=== PATIENT | female | born 1990 | race Caucasian/White ===

== ENCOUNTER 2019-08-08 09:56 | Inpatient (IN) ==
[2019-08-08] MEDS ORDERED: SODIUM CHLORIDE 0.9% 1000ML 1,000 ML IV SCH (10:30)
[2019-08-08] MEDS ORDERED: LORazepam 0.5 MG/1 ML VIAL IV STA (10:36)
--- NOTE | 2019-08-08 10:45 | Emergency Department Note ---
Impression & Plan Altered mental status ED Provider Note NAME: NICOLÁS VARELA AGE: 29 SEX: F ARRIVES VIA: Ambulance INFORMANT: [Patient] patient's boyfriend, Rajesh ED PROVIDER(S): Jus Henriquez MD CHIEF COMPLAINT: Altered mental status PLAN: Disposition: Admitted Condition: [Good] MEDICAL DECISION MAKING: Patient presented to the emergency department because of a change in mental status. She was very tangential, responding to internal stimuli, and paranoid. The patient denied any trauma or drug use. The patient's boyfriend Rajesh states that she had an abrupt change and as far she is aware had no psych history. She required quite a bit of verbal de-escalation and redirection. She had a concerning leukocytosis on CBC. She had no fever. Inflammatory markers were negative. Tylenol, salicylate, and alcohol levels were negative. The patient missed several times trying to provide a urine sample so urine drug screen is pending. She initially refused CT imaging. As she was seeming somewhat anxious I did offer a dose of IV Ativan. The patient accepted. She was more relaxed and then underwent CT imaging. This was thankfully negative. Because of the leukocytosis and abrupt change in mental status I had concerns about possible meningitis/encephalitis. The patient underwent lumbar puncture after a very long discussion. She did agree to the procedure. This went off uneventfully. Thankfully there is no signs to suggest CSF infection. The patient will need further management in the hospital. I did consult with internal medicine. The patient was evaluated by internal medicine, Dr. Wong but was very uncooperative. We were discussing the possibilities and the patient ran out of the emergency department. She was found by security. She suffered no injury or ill effect from her attempted elopement. Because of her change in mental status and possible thought disorder I did not feel that she is safe to be discharged. A petitioning statement for a 302 warrant was initiated. Ideally it was contacted. I discussed the case again with the [facility]. The patient will be admitted medically with a psychiatric consult. Triage Nursing notes reviewed and agree them. [Additional history obtained from] patient's boyfriend Rajesh Vital Signs: reviewed and remarkable for [no significant abnormalities] Differential diagnosis: Mood disorder, thought disorder, infection, hypoglycemia, electrolyte abnormalities, cardiac sources, intracerebral event, toxicologic, trauma, neurologic, as well as other pathologies. ER treatment provided: IV Ativan Diagnostics interpreted by me: ECG: Rate:90 Rhythm:Normal sinus [place]:Normal QRS:Normal ST segements:No elevation or depression Other:No PACs or PVCs Laboratory studies: [See below] leukocytosis on CBC. Chemistry panel unremarkable. Blood tox cream negative. Urine tox screen pending. Patient is not . Imaging studies: Head CT: A noncontrast CT scan of the head was performed and was negative for tumor, fracture, intracranial hemorrhage, or other acute pathology. Consultation(s): Internal medicine, Dr. Wong HPI: arrives for evaluation of altered mental status. She was brought into the emergency department by EMS. Her boyfriend reportedly contacted them for help as she was wandering around and not making sense. The patient denies any pain. She denies any medical history. She is very tangential and not cooperative. She denies any drug or alcohol use. ROS: Unobtainable secondary to mental status PAST MEDICAL HISTORY:[See Below] unobtainable secondary to mental status PAST SURGICAL HISTORY:[See Below] FAMILY HISTORY:[See Below] SOCIAL HISTORY:[See Below] unobtainable secondary to mental status HOME MEDICATIONS:[See Below] ALLERGIES:[See Below] VITALS:[See Below] PHYSICAL EXAMINATION: GENERAL: Awake, alert, paranoid-appearing, in no distress HENT: Normocephalic, atraumatic. Oropharynx unremarkable. EYES: Normal conjunctiva. Sclera non-icteric. NECK: Inspection normal. Non-tender. Supple. No nuchal rigidity. FROM. No masses. RESPIRATORY: Clear to auscultation. No wheezes. No rales. Normal respiratory effort. CARDIAC: Tachycardic rate. Normal rhythm. No murmurs. No rubs. Extremities warm and well perfused. Pulses equal. No JVD. GI: Soft, non-distended. No tenderness to palpation. No rebound or guarding. No masses. RECTAL: Deferred. MUSCULOSKELETAL: Atraumatic. Chest examination reveals no tenderness. The back is symmetrical on inspection without obvious abnormality. There is no CVA tenderness to palpation. No joint edema. LOWER EXTREMITIES: Calves are equal size bilaterally and non-tender. No edema. No discoloration. NEURO: Awake and alert but altered sensorium. No sensory or motor deficits noted. SKIN: No rash or jaundice noted. PSYCH: Patient has tangential thought. Very labile mood. Paranoid. Paucity speech. Responding to internal stimuli. Unable to confirm SI/HI. ED COURSE: [Critical Care:] [None] Jus Henriquez MD Past Med/Surg History Social History Smoking Status: Unknown if ever smoked Allergies Allergies Allergy/AdvReac Type Severity Reaction Status Date / Time Unable to Assess Allergy Unverified 08/08/19 10:46 Home Meds Home Medications Medication Instructions Recorded Confirmed Unobtainable 08/08/19 08/08/19 Results & Data (ED) Vital Signs Vital Signs - 24 hr 08/08/19 10:04 08/08/19 11:13 08/08/19 11:21 Temperature 36.9 C Temperature Source Oral Pulse Rate 101 H 89 Pulse Rate [Finger] Pulse Rate from SpO2 Sensor 91 H Respiratory Rate 18 19 Blood Pressure 138/102 H 121/73 Blood Pressure [Left Arm] Blood Pressure Mean 114 94 Blood Pressure Mean [Left Arm] Pulse Oximetry 94 97 Oxygen Delivery Method Room Air Room Air Room Air Sepsis Recent Fever Within 48 Hours No Sepsis New/Unexplained Change in Mental Status No Sepsis Action Taken by Nursing No Action Required 08/08/19 11:30 08/08/19 13:00 08/08/19 13:30 Temperature Temperature Source Pulse Rate 88 96 H 91 H Pulse Rate [Finger] Pulse Rate from SpO2 Sensor 88 91 H Respiratory Rate 19 24 22 Blood Pressure 119/86 136/95 Blood Pressure [Left Arm] Blood Pressure Mean 89 100 Blood Pressure Mean [Left Arm] Pulse Oximetry 97 98 98 Oxygen Delivery Method Room Air Room Air Room Air Sepsis Recent Fever Within 48 Hours Sepsis New/Unexplained Change in Mental Status Sepsis Action Taken by Nursing 08/08/19 14:07 08/08/19 14:30 08/08/19 15:00 Temperature Temperature Source Pulse Rate 93 H 83 85 Pulse Rate [Finger] Pulse Rate from SpO2 Sensor 92 H 84 83 Respiratory Rate 22 18 17 Blood Pressure 142/92 H 120/76 113/91 Blood Pressure [Left Arm] Blood Pressure Mean 113 86 93 Blood Pressure Mean [Left Arm] Pulse Oximetry 98 99 99 Oxygen Delivery Method Room Air Room Air Room Air Sepsis Recent Fever Within 48 Hours Sepsis New/Unexplained Change in Mental Status Sepsis Action Taken by Nursing 08/08/19 15:30 06/15/20 17:58 Temperature Temperature Source Pulse Rate 95 H Pulse Rate [Finger] 87 Pulse Rate from SpO2 Sensor Respiratory Rate 21 17 Blood Pressure 128/78 Blood Pressure [Left Arm] 137/85 Blood Pressure Mean 89 Blood Pressure Mean [Left Arm] 102 Pulse Oximetry 96 98 Oxygen Delivery Method Room Air Room Air Sepsis Recent Fever Within 48 Hours Sepsis New/Unexplained Change in Mental Status Sepsis Action Taken by Nursing Laboratory Data Result diagrams: 08/08/19 10:40 08/08/19 10:40 Lab Results 08/08/19 08/08/19 08/08/19 Range/Units 10:40 10:40 10:40 WBC 12.24 H (4.8-10.8) K/uL RBC 4.59 (4.2-5.4) M/uL Hgb 14.0 (12.0-16.0) g/dL Hct 39.1 (37-47) % MCV 85.2 (80-100) fL MCH 30.5 (25-34) pg MCHC 35.8 (32-36) g/dL RDW Std Deviation 41.3 (36.4-46.3) fL RDW Coeff of Narda 13.2 (11.5-14.5) % Plt Count 285 (130-400) K/uL MPV 10.1 (7.4-10.4) fL Immature Gran % (Auto) 0.3 % Neut % (Auto) 74.9 % Lymph % (Auto) 15.8 % [place] % (Auto) 8.9 % Eos % (Auto) 0.0 % Baso % (Auto) 0.1 % Immature Gran # (Auto) 0.04 H (0.00-0.02) K/uL Neut # (Auto) 9.16 H (1.4-6.5) K/uL Lymph # (Auto) 1.94 (1.2-3.4) K/uL [place] # (Auto) 1.09 H (0.11-0.59) K/uL Eos # (Auto) 0.00 (0-0.5) K/uL Baso # (Auto) 0.01 (0-0.2) K/uL ESR (0-21) mm/hr Sodium 135 L (136-145) mmol/L Potassium 4.0 (3.5-5.1) mmol/L Chloride 100 (98-107) mmol/L Carbon Dioxide 27 (21-32) mmol/L Anion Gap 8.0 (3-11) BUN 18 (7-18) mg/dl Creatinine 0.77 (0.6-1.2) mg/dl Est Cr Clr Drug Dosing 90.2 ml/min Est GFR ( Amer) 120.9 Est GFR (Non-Af Amer) 104.3 BUN/Creatinine Ratio 23.6 H (10-20) Glucose 84 (70-99) mg/dl Calcium 9.4 (8.5-10.1) mg/dl Total Bilirubin 0.6 (0.2-1) mg/dl AST 14 L (15-37) U/L ALT 21 (12-78) U/L Alkaline Phosphatase 62 (45-117) U/L C-Reactive Protein (0-0.29) mg/dl Total Protein 9.0 H (6.4-8.2) gm/dl Albumin 4.6 (3.4-5.0) gm/dl Globulin 4.4 H (2.5-4.0) gm/dl Albumin/Globulin Ratio 1.0 (0.9-2) Procalcitonin (0-0.5) ng/ml TSH 1.140 (0.300-4.500) uIu/ml HCG, Qual (Negative) CSF Appearance CSF Color Xanthrochromic CSF WBC (0-5) /uL CSF RBC (0-) /uL CSF Cell Count Tube # CSF Chemistry Tube # CSF Glucose (40-70) mg/dl CSF Total Protein (15-45) mg/dl Salicylates < 1.7 L (2.8-20) mg/dl Acetaminophen < 2 L (10-30) ug/ml Ethyl Alcohol mg/dL (0-3) mg/dl 08/08/19 08/08/19 08/08/19 Range/Units 10:40 10:40 10:40 WBC (4.8-10.8) K/uL RBC (4.2-5.4) M/uL Hgb (12.0-16.0) g/dL Hct (37-47) % MCV (80-100) fL MCH (25-34) pg MCHC (32-36) g/dL RDW Std Deviation (36.4-46.3) fL RDW Coeff of Narda (11.5-14.5) % Plt Count (130-400) K/uL MPV (7.4-10.4) fL Immature Gran % (Auto) % Neut % (Auto) % Lymph % (Auto) % [place] % (Auto) % Eos % (Auto) % Baso % (Auto) % Immature Gran # (Auto) (0.00-0.02) K/uL Neut # (Auto) (1.4-6.5) K/uL Lymph # (Auto) (1.2-3.4) K/uL [place] # (Auto) (0.11-0.59) K/uL Eos # (Auto) (0-0.5) K/uL Baso # (Auto) (0-0.2) K/uL ESR 11 (0-21) mm/hr Sodium (136-145) mmol/L Potassium (3.5-5.1) mmol/L Chloride (98-107) mmol/L Carbon Dioxide (21-32) mmol/L Anion Gap (3-11) BUN (7-18) mg/dl Creatinine (0.6-1.2) mg/dl Est Cr Clr Drug Dosing ml/min Est GFR ( Amer) Est GFR (Non-Af Amer) BUN/Creatinine Ratio (10-20) Glucose (70-99) mg/dl Calcium (8.5-10.1) mg/dl Total Bilirubin (0.2-1) mg/dl AST (15-37) U/L ALT (12-78) U/L Alkaline Phosphatase (45-117) U/L C-Reactive Protein (0-0.29) mg/dl Total Protein (6.4-8.2) gm/dl Albumin (3.4-5.0) gm/dl Globulin (2.5-4.0) gm/dl Albumin/Globulin Ratio (0.9-2) Procalcitonin (0-0.5) ng/ml TSH (0.300-4.500) uIu/ml HCG, Qual Negative (Negative) CSF Appearance CSF Color Xanthrochromic CSF WBC (0-5) /uL CSF RBC (0-) /uL CSF Cell Count Tube # CSF Chemistry Tube # CSF Glucose (40-70) mg/dl CSF Total Protein (15-45) mg/dl Salicylates (2.8-20) mg/dl Acetaminophen (10-30) ug/ml Ethyl Alcohol mg/dL < 3.0 (0-3) mg/dl 08/08/19 08/08/19 08/08/19 Range/Units 10:40 10:40 13:35 WBC (4.8-10.8) K/uL RBC (4.2-5.4) M/uL Hgb (12.0-16.0) g/dL Hct (37-47) % MCV (80-100) fL MCH (25-34) pg MCHC (32-36) g/dL RDW Std Deviation (36.4-46.3) fL RDW Coeff of Narda (11.5-14.5) % Plt Count (130-400) K/uL MPV (7.4-10.4) fL Immature Gran % (Auto) % Neut % (Auto) % Lymph % (Auto) % [place] % (Auto) % Eos % (Auto) % Baso % (Auto) % Immature Gran # (Auto) (0.00-0.02) K/uL Neut # (Auto) (1.4-6.5) K/uL Lymph # (Auto) (1.2-3.4) K/uL [place] # (Auto) (0.11-0.59) K/uL Eos # (Auto) (0-0.5) K/uL Baso # (Auto) (0-0.2) K/uL ESR (0-21) mm/hr Sodium (136-145) mmol/L Potassium (3.5-5.1) mmol/L Chloride (98-107) mmol/L Carbon Dioxide (21-32) mmol/L Anion Gap (3-11) BUN (7-18) mg/dl Creatinine (0.6-1.2) mg/dl Est Cr Clr Drug Dosing ml/min Est GFR ( Amer) Est GFR (Non-Af Amer) BUN/Creatinine Ratio (10-20) Glucose (70-99) mg/dl Calcium (8.5-10.1) mg/dl Total Bilirubin (0.2-1) mg/dl AST (15-37) U/L ALT (12-78) U/L Alkaline Phosphatase (45-117) U/L C-Reactive Protein < 0.29 (0-0.29) mg/dl Total Protein (6.4-8.2) gm/dl Albumin (3.4-5.0) gm/dl Globulin (2.5-4.0) gm/dl Albumin/Globulin Ratio (0.9-2) Procalcitonin < 0.05 (0-0.5) ng/ml TSH (0.300-4.500) uIu/ml HCG, Qual (Negative) CSF Appearance Clear CSF Color Colorless Xanthrochromic No xanthochromia CSF WBC 1 (0-5) /uL CSF RBC 0 (0-) /uL CSF Cell Count Tube # 3 CSF Chemistry Tube # CSF Glucose (40-70) mg/dl CSF Total Protein (15-45) mg/dl Salicylates (2.8-20) mg/dl Acetaminophen (10-30) ug/ml Ethyl Alcohol mg/dL (0-3) mg/dl 08/08/19 08/08/19 Range/Units 13:35 13:35 WBC (4.8-10.8) K/uL RBC (4.2-5.4) M/uL Hgb (12.0-16.0) g/dL Hct (37-47) % MCV (80-100) fL MCH (25-34) pg MCHC (32-36) g/dL RDW Std Deviation (36.4-46.3) fL RDW Coeff of Narda (11.5-14.5) % Plt Count (130-400) K/uL MPV (7.4-10.4) fL Immature Gran % (Auto) % Neut % (Auto) % Lymph % (Auto) % [place] % (Auto) % Eos % (Auto) % Baso % (Auto) % Immature Gran # (Auto) (0.00-0.02) K/uL Neut # (Auto) (1.4-6.5) K/uL Lymph # (Auto) (1.2-3.4) K/uL [place] # (Auto) (0.11-0.59) K/uL Eos # (Auto) (0-0.5) K/uL Baso # (Auto) (0-0.2) K/uL ESR (0-21) mm/hr Sodium (136-145) mmol/L Potassium (3.5-5.1) mmol/L Chloride (98-107) mmol/L Carbon Dioxide (21-32) mmol/L Anion Gap (3-11) BUN (7-18) mg/dl Creatinine (0.6-1.2) mg/dl Est Cr Clr Drug Dosing ml/min Est GFR ( Amer) Est GFR (Non-Af Amer) BUN/Creatinine Ratio (10-20) Glucose (70-99) mg/dl Calcium (8.5-10.1) mg/dl Total Bilirubin (0.2-1) mg/dl AST (15-37) U/L ALT (12-78) U/L Alkaline Phosphatase (45-117) U/L C-Reactive Protein (0-0.29) mg/dl Total Protein (6.4-8.2) gm/dl Albumin (3.4-5.0) gm/dl Globulin (2.5-4.0) gm/dl Albumin/Globulin Ratio (0.9-2) Procalcitonin (0-0.5) ng/ml TSH (0.300-4.500) uIu/ml HCG, Qual (Negative) CSF Appearance CSF Color Xanthrochromic CSF WBC (0-5) /uL CSF RBC (0-) /uL CSF Cell Count Tube # CSF Chemistry Tube # 1 CSF Glucose 62 (40-70) mg/dl CSF Total Protein 31.2 Cancelled (15-45) mg/dl Salicylates (2.8-20) mg/dl Acetaminophen (10-30) ug/ml Ethyl Alcohol mg/dL (0-3) mg/dl Administered Medications Discontinued Medications Sodium Chloride (Nss 1000ml) 1,000 mls @ 999 mls/hr IV .Q1H1M CLEMENCIA Stop: 08/08/19 11:30 Last Infusion: 08/08/19 12:55 Dose: 0 mls/hr Documented by: [id number] Admin: 08/08/19 10:49 Dose: 999 mls/hr Documented by: [id number] Lorazepam (Ativan) 0.5 mg in 1 mls @ 1 mls/min IV NOW STA Stop: 08/08/19 10:37 Last Admin: 08/08/19 10:48 Dose: 1 mls/min Documented by: [id number] Lorazepam (Ativan) 0.5 mg in 1 mls @ 1 mls/min IV NOW STA Stop: 08/08/19 11:22 Last Admin: 08/08/19 17:08 Dose: Not Given Documented by: [id number] Lorazepam (Ativan) Confirm Administered Dose 2 mg .ROUTE .STK-MED ONE Stop: 08/08/19 16:18 Last Admin: 08/08/19 17:08 Dose: Not Given Documented by: [id number] Discharge Plan Visit Data Chief Complaint: Mental Health Evaluation Stated Complaint: Altered/Paranoia ED Provider: Jus Henriquez Discharge Problem: Altered mental status Forms Stand Alone Forms: [facility], Suicide Prevention Resources Prescriptions Prescriptions: No Action Unobtainable RF: 0 Referrals Referrals: PT,DECLINED [Primary Care Provider] -
[2019-08-08 10:57] LABS: Basophils # (auto) 0.01 K/uL (0-0.2); Basophils % (auto) 0.1 %; Hematocrit (blood only) 39.1 % (37-47); Immature Granulocytes # (auto) 0.04 K/uL (0.00-0.02); Immature Granulocytes % (auto) 0.3 %; Lymphocytes # (auto) 1.94 K/uL (1.2-3.4); Lymphocytes % (auto) 15.8 %; Mean Corpuscular Hemoglobin 30.5 pg (25-34); Mean Corpuscular Hgb Conc 35.8 g/dL (32-36); Mean Corpuscular Volume 85.2 fL (80-100); Mean Platelet Volume 10.1 fL (7.4-10.4); Monocytes # (auto) 1.09 K/uL (0.11-0.59); Monocytes % (auto) 8.9 %; Neutrophils # (auto) 9.16 K/uL (1.4-6.5); Neutrophils % (auto) 74.9 %; Platelet Count 285 K/uL (130-400); RDW Coefficient of Variation 13.2 % (11.5-14.5); RDW Standard Deviation 41.3 fL (36.4-46.3); Red Blood Count 4.59 M/uL (4.2-5.4); White Blood Count 12.24 K/uL (4.8-10.8)
[2019-08-08 11:18] LABS: Pregnancy Test, Serum Negative (Negative)
[2019-08-08 11:21] LABS: Albumin Level 4.6 gm/dl (3.4-5.0); BUN Creatinine Ratio 23.6 (10-20); Calcium 9.4 mg/dl (8.5-10.1); Creatinine Clr Calc Pharmacy 90.2 ml/min; Est GFR (African American) 120.9; Est GFR (Non-African American) 104.3
[2019-08-08 11:22] LABS: Acetaminophen < 2 ug/ml (10-30); Salicylate < 1.7 mg/dl (2.8-20)
[2019-08-08 11:31] LABS: Bilirubin,Total 0.6 mg/dl (0.2-1); Globulin 4.4 gm/dl (2.5-4.0); Thyroid Stimulating Hormone 1.14 uIu/ml (0.300-4.500)
--- NOTE | 2019-08-08 11:52 | CT Scan Report ---
CT OF THE HEAD WITHOUT CONTRAST CLINICAL HISTORY: Altered mental status. COMPARISON STUDY: No previous studies for comparison. CT DOSE: 1074.96 mGy.cm TECHNIQUE: Helical axial images of the head were obtained without IV contrast. Automated exposure con trol was utilized for the study. A dose lowering technique was utilized adhering to the principles o f ALARA. FINDINGS: No acute intracranial hemorrhage, midline shift or mass effect is present. The ventricular system is unremarkable. The basilar cisterns are patent. No extra-axial collections are present. Ther e are no findings to suggest acute dural sinus thrombosis or acute territorial infarct. No significan t calvarial abnormalities are present. Visualized portions of the sinuses and mastoid air cells are c lear. IMPRESSION: No acute intracranial findings. ACT 112: Negative or not required by law. Electronically signed by: Semaj Tovar M.D. 08/08/2019 11:51 AM
--- NOTE | 2019-08-08 12:38 | Electrocardiogram Report ---
Test Reason : Blood Pressure : / mmHG Vent. Rate : 090 BPM Atrial Rate : 090 BPM P-R Int : 136 ms QRS Dur : 092 ms QT Int : 350 ms P-R-T Axes : 012 087 057 degrees QTc Int : 428 ms Normal sinus rhythm Normal ECG No previous ECGs available Confirmed by Chris Ram ([id number]) on 08/08/2019 12:38:13 PM Referred By: REFERRED SELF Confirmed By:Sanchez Ram
[2019-08-08 14:21] LABS: Appearance CSF Clear; CSF Count Tube # 3; CSF Xanthrochromic No xanthochromia; Color CSF Colorless; Red Blood Cell CSF (A) 0 /uL (0-); Red Blood Cell CSF (B) 1 /uL (0-); White Blood Cell CSF (A) 1 /uL (0-5); White Blood Cell CSF (B) 0 /uL (0-5)
[2019-08-08 14:22] LABS: Total Protein CSF 31.2 mg/dl (15-45)
[2019-08-08] MEDS: LORazepam 0.5 MG/1 ML VIAL IV STA ×2 (14:23→17:08)
[2019-08-08] MEDS ORDERED: LORazepam 2 MG/4 ML VIAL ONE (16:17)
[2019-08-08] MEDS ORDERED: MAGNESIUM HYDROXIDE SUSP 30 ML UDC PO PRN ×2 (16:40→20:08)
[2019-08-08] MEDS ORDERED: POLYETHYLENE (MIRALAX) 17 GM PACK PO PRN ×2 (16:40→20:08)
[2019-08-08] MEDS ORDERED: ALUMINUM/MAGNESIUM SUSP 30 ML UDC PO PRN ×2 (16:40→20:08)
[2019-08-08] MEDS ORDERED: ONDANSETRON INJ 2 MG/ML 2 ML VIAL IV PRN ×2 (16:40→20:08)
[2019-08-08] MEDS ORDERED: ACETAMINOPHEN 325 MG TAB PO PRN ×2 (16:40→20:08)
--- NOTE | 2019-08-08 16:59 | Communication Note ---
Date of Service: August 08, 2019 Was called by ER for evaluation of patient. Patient is a 29-year-old with Parkinson's disease who presented with altered mental status. Patient was very hostile, refused to be evaluated Made threatening remarks and do not wish to discuss with me. Per ER physician, boyfriend reported feeling down yesterday and demonstrating multiple personality today. Review of labs show WBC of 12, unremarkable CT head, negative alcohol level, negative CSF analysis from LP. I discussed with ER physician to get psych eval and management. Get drug tox screen as well Psych can consult us if needed
--- NOTE | 2019-08-08 17:04 | Communication Note ---
Date of Service: August 08, 2019 Patient may get MRI brain once stable
--- NOTE | 2019-08-08 18:23 | History & Physical Report ---
Date of Service August 08, 2019 Assessment & Plan (1) Altered mental status: Altered mental status During my evaluation, patient was really hostile and refusing to be examined. Per ER physician, patient demonstrating tangentiality and paranoia. Labs was remarkable for WBC of 12, Na of 135 Normal TSH, unremarkable EKG CT head was unremarkable. Infectious causes are unlikely considering normal ESR, procalcitonin, CRP and negative CSF analysis from LP Other possible causes include toxicologic causes. Alcohol is negative. Get drug screen I have low suspicion for a CVA. However, considering abrupt onset of symptoms by history, should get an MRI brain Patient was reported to have ran out of ER at some point and was found in [employer] by security Per ER physician, [id number] petition initiated Will admit to medicine and get psych consult Constant redirection as needed 1:1 History of Present Illness 29 year old woman brought in for altered mental status. Medical history significant only for Juvenile Parkinson. History obtained from ER physician. Patient refused to talk to me and was hostile. Initially, she wanted me to stand close to the door stating that 'she is feeling attacked' She did not want to discuss anything or answer any of my questions. At some point, she asked to be left alone and asked if I want her to punch me. Per ER physician, boyfriend reported patient feeling down yesterday and this morning, reported to be acting completely out of character with multiple personality. No reported loss of consciousness, chest pain, focal weakness. Primary Care Provider: PT DECLINED Allergies Allergy/AdvReac Type Severity Reaction Status Date / Time Unable to Assess Allergy Unverified 08/08/19 10:46 Home Medications Home Medications Medication Instructions Recorded Confirmed Type Unobtainable 08/08/19 08/08/19 History Past Med/Surg History Social History Smoking Status: Unknown if ever smoked Review of Systems Review of Systems: Unobtainable due to mental health condition Physical Exam Constitutional: Patient refused exam Results & Data Results & Data ([facility]) Vital Signs (Past 12 Hours) Vital Signs Temp Pulse Pulse Resp BP BP Pulse Ox 08/08/19 17:58 87 17 137/85 98 08/08/19 15:30 95 H 21 128/78 96 08/08/19 15:00 85 17 113/91 99 08/08/19 14:30 83 18 120/76 99 08/08/19 14:07 93 H 22 142/92 H 98 08/08/19 13:30 91 H 22 98 08/08/19 13:00 96 H 24 136/95 98 08/08/19 11:30 88 19 119/86 97 08/08/19 11:13 89 19 121/73 97 08/08/19 10:04 36.9 C 101 H 18 138/102 H 94 Laboratory Results Laboratory Results - last 24 hr 08/08/19 08/08/19 08/08/19 10:40 10:40 10:40 WBC 12.24 H RBC 4.59 Hgb 14.0 Hct 39.1 MCV 85.2 MCH 30.5 MCHC 35.8 RDW Std Deviation 41.3 RDW Coeff of Narda 13.2 Plt Count 285 MPV 10.1 Immature Gran % (Auto) 0.3 Neut % (Auto) 74.9 Lymph % (Auto) 15.8 [place] % (Auto) 8.9 Eos % (Auto) 0.0 Baso % (Auto) 0.1 Immature Gran # (Auto) 0.04 H Neut # (Auto) 9.16 H Lymph # (Auto) 1.94 [place] # (Auto) 1.09 H Eos # (Auto) 0.00 Baso # (Auto) 0.01 ESR Sodium 135 L Potassium 4.0 Chloride 100 Carbon Dioxide 27 Anion Gap 8.0 BUN 18 Creatinine 0.77 Est Cr Clr Drug Dosing 90.2 Est GFR ( Amer) 120.9 Est GFR (Non-Af Amer) 104.3 BUN/Creatinine Ratio 23.6 H Glucose 84 Calcium 9.4 Total Bilirubin 0.6 AST 14 L ALT 21 Alkaline Phosphatase 62 C-Reactive Protein Total Protein 9.0 H Albumin 4.6 Globulin 4.4 H Albumin/Globulin Ratio 1.0 Procalcitonin TSH 1.140 HCG, Qual CSF Appearance CSF Color Xanthrochromic CSF WBC CSF RBC CSF Cell Count Tube # CSF Chemistry Tube # CSF Glucose CSF Total Protein Salicylates < 1.7 L Acetaminophen < 2 L Ethyl Alcohol mg/dL 08/08/19 08/08/19 08/08/19 10:40 10:40 10:40 WBC RBC Hgb Hct MCV MCH MCHC RDW Std Deviation RDW Coeff of Narda Plt Count MPV Immature Gran % (Auto) Neut % (Auto) Lymph % (Auto) [place] % (Auto) Eos % (Auto) Baso % (Auto) Immature Gran # (Auto) Neut # (Auto) Lymph # (Auto) [place] # (Auto) Eos # (Auto) Baso # (Auto) ESR 11 Sodium Potassium Chloride Carbon Dioxide Anion Gap BUN Creatinine Est Cr Clr Drug Dosing Est GFR ( Amer) Est GFR (Non-Af Amer) BUN/Creatinine Ratio Glucose Calcium Total Bilirubin AST ALT Alkaline Phosphatase C-Reactive Protein Total Protein Albumin Globulin Albumin/Globulin Ratio Procalcitonin TSH HCG, Qual Negative CSF Appearance CSF Color Xanthrochromic CSF WBC CSF RBC CSF Cell Count Tube # CSF Chemistry Tube # CSF Glucose CSF Total Protein Salicylates Acetaminophen Ethyl Alcohol mg/dL < 3.0 08/08/19 08/08/19 08/08/19 10:40 10:40 13:35 WBC RBC Hgb Hct MCV MCH MCHC RDW Std Deviation RDW Coeff of Narad Plt Count MPV Immature Gran % (Auto) Neut % (Auto) Lymph % (Auto) [place] % (Auto) Eos % (Auto) Baso % (Auto) Immature Gran # (Auto) Neut # (Auto) Lymph # (Auto) [place] # (Auto) Eos # (Auto) Baso # (Auto) ESR Sodium Potassium Chloride Carbon Dioxide Anion Gap BUN Creatinine Est Cr Clr Drug Dosing Est GFR ( Amer) Est GFR (Non-Af Amer) BUN/Creatinine Ratio Glucose Calcium Total Bilirubin AST ALT Alkaline Phosphatase C-Reactive Protein < 0.29 Total Protein Albumin Globulin Albumin/Globulin Ratio Procalcitonin < 0.05 TSH HCG, Qual CSF Appearance Clear CSF Color Colorless Xanthrochromic No xanthochromia CSF WBC 1 CSF RBC 0 CSF Cell Count Tube # 3 CSF Chemistry Tube # CSF Glucose CSF Total Protein Salicylates Acetaminophen Ethyl Alcohol mg/dL 08/08/19 08/08/19 13:35 13:35 WBC RBC Hgb Hct MCV MCH MCHC RDW Std Deviation RDW Coeff of Narda Plt Count MPV Immature Gran % (Auto) Neut % (Auto) Lymph % (Auto) [place] % (Auto) Eos % (Auto) Baso % (Auto) Immature Gran # (Auto) Neut # (Auto) Lymph # (Auto) [place] # (Auto) Eos # (Auto) Baso # (Auto) ESR Sodium Potassium Chloride Carbon Dioxide Anion Gap BUN Creatinine Est Cr Clr Drug Dosing Est GFR ( Amer) Est GFR (Non-Af Amer) BUN/Creatinine Ratio Glucose Calcium Total Bilirubin AST ALT Alkaline Phosphatase C-Reactive Protein Total Protein Albumin Globulin Albumin/Globulin Ratio Procalcitonin TSH HCG, Qual CSF Appearance CSF Color Xanthrochromic CSF WBC CSF RBC CSF Cell Count Tube # CSF Chemistry Tube # 1 CSF Glucose 62 CSF Total Protein 31.2 Cancelled Salicylates Acetaminophen Ethyl Alcohol mg/dL Diagnostic Findings CT Head FINDINGS: No acute intracranial hemorrhage, midline shift or mass effect is present. The ventricular system is unremarkable. The basilar cisterns are patent. No extra-axial collections are present. There are no findings to suggest acute dural sinus thrombosis or acute territorial infarct. No significant calvarial abnormalities are present. Visualized portions of the sinuses and mastoid air cells are clear. IMPRESSION: No acute intracranial findings. Code Status & VTE Plan VTE Prophylaxis Plan VTE Prophylaxis will be ordered: Yes
[2019-08-08 19:54] LABS: Appearance Urine Clear (Clear); Bilirubin Urine Negative (Negative); Blood Urine Negative (Negative); Color Urine Yellow; Glucose Urine UA Negative (Negative); Ketones Urine Trace (Negative); Leukocyte Esterase Urine Negative (Negative); Nitrite Urine Negative (Negative); Protein Urine Negative (Negative); Urobilinogen Urine Negative (Negative); pH Urine 7.5 (4.5-7.5)
[2019-08-08 20:12] LABS: Amphetamines+Metham, Urine Neg (Neg); Barbiturates, Urine Neg (Neg); Benzodiazepine, Urine Neg (Neg); Cocaine, Urine Neg (Neg); MDMA (Ecstacy), Urine Neg (Neg); Methadone, Urine Neg (Neg); Opiate, Urine Neg (Neg); Phencyclidine, Urine Neg (Neg)
[2019-08-09] MEDS ORDERED: HALOPERIDOL LACTATE 5 MG/ML 1 ML VIAL IM STA (06:27)
[2019-08-09] MEDS ORDERED: HALOPERIDOL LACTATE 5 MG/ML 1 ML VIAL ONE (06:32)
[2019-08-09 10:00] LABS: Hematocrit (blood only) 38.2 % (37-47); Hemoglobin 12.5 g/dL (12.0-16.0); Mean Corpuscular Hemoglobin 28.3 pg (25-34); Mean Corpuscular Hgb Conc 32.7 g/dL (32-36); Mean Corpuscular Volume 86.6 fL (80-100); Mean Platelet Volume 10.3 fL (7.4-10.4); Platelet Count 240 K/uL (130-400); RDW Coefficient of Variation 13.4 % (11.5-14.5); RDW Standard Deviation 42.5 fL (36.4-46.3); Red Blood Count 4.41 M/uL (4.2-5.4); White Blood Count 9.93 K/uL (4.8-10.8)
[2019-08-09 10:26] LABS: BUN Creatinine Ratio 21.6 (10-20); Creatinine Clr Calc Pharmacy 107.4 ml/min; Est GFR (African American) 141.2; Est GFR (Non-African American) 121.9; Potassium 3.9 mmol/L (3.5-5.1)
--- NOTE | 2019-08-09 11:28 | Psychiatric Consultation ---
Date of Consultation August 09, 2019 Impression / Recommendations Impression Dr. Malgorzata Correa was directly involved in review and discussion of the patient's case and participated in medical decision making regarding treatment recommendations. RECOMMENDATIONS: 08/08 - MRI pending, awaiting patient to be appropriate to complete study. Strongly recommend ongoing work-up to rule out organic causes of altered mental status/psychosis. It is unusual for AMS related to a primary psychiatric condition to present as abruptly as patient's symptoms are reported, though of course this cannot be entirely ruled out at this time. Would be concerned about substance-induced psychosis (positive for marijuana), as this can occur even after history of regular marijuana use and especially concerning if patient had utilized synthetic marijuana. Would encourage exploration of provider who certified patient for medicinal marijuana in order to coordinate care and ensure awareness of this episode. - Based on collateral obtained from boyfriend, there is no evidence to suggest mood-induced psychosis. Based on the very short duration of symptoms, acute onset, and no evidence of a prodromal phase, there is little evidence to suggest her presentation could be labeled as a primary thought disorder at this time. Based on her unique presentation, recommend very thorough evaluation of other potential causes for her presentation. - Additional studies to consider for medical work-up of psychosis include: HIV/syphilis/Lyme serology, Vitamin B12/Folate, ELAYNE and associated rheumatologic work-up, heavy metal screening, hepatitis screening. Will defer consideration of EEG to neurology, based on their impression of patient's clinical picture. Screen for synthetic substances is recommended as well. 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 Neurology has also been consulted on patient's case. Given this diagnosis, would suggest reserving antipsychotic medications only for acute risk of harm to self or others, as these medications may contribute to worsening of Parkinson's symptoms. Suggest coordination of care with patient's neurologist at [facility] - Dr. Hanny Cantu . - It does seem appropriate to utilize medications as needed to target episodes of agitation; however, with her diagnosis of Parkinson's disease - there are limited options that are ideal for continued use. Utilization of an antipsychotic medication could be considered for acute agitation; but it is recommended to consider utilization of benzodiazepines as an alternative prn medication for agitation, as these would have less risk of neuromuscular effects/interactions when considering her full clinical picture. - Pt is currently on an active 302 warrant, which can be utilized to keep p atient in the hospital for further medical testing until we are better able to understand the etiology of her presentation. Recommendations for or against inpatient psychiatric treatment will largely depend on further medical work-up and collateral information obtained from outpatient supports. Boyfriend, and 302 petitioner, has provided some collateral information. - We appreciate the opportunity to participate in the care of this patient and will continue to follow her case. Please reach out to our service with additional questions or updates. (1) Altered mental status: Altered mental status type: unspecified Qualified Code(s): R41.82 - Altered mental status, unspecified (2) Psychosis: Psychosis, NOS - at this time, there is a high level of suspicion that patient's unique presentation is more likely related to an organic cause as opposed to first-break of a primary thought disorder. Recommend ongoing work-up to clarify diagnosis. Psych History Identifying Data 29-year-old female admitted medically on 08/08/2019 after presenting to the ED via EMS for an acute change in mental status. Reports made by patient's boyfriend that she had become more paranoid and tangential and he had found her wandering around. 302 petitioning statement was completed by patient's boyfriend; however, patient was admitted medically for additional testing. Psychiatric consultation was requested to evaluate patient for AMS/psychosis. It is reported that the patient has a history of Juvenile Parkinson's Disease. Chief Complaint "Mortality. Morality. Moral." History of Present Illness 29-year-old female admitted medically on 08/08/2019 after presenting to the ED via EMS for a reportedly acute change in mental status. Pt's boyfriend reportedly called EMS due to inability to redirect patient safely after she was found wandering the street. He reported to ED staff that patient had been more tangential and paranoid. ED documentation suggests this change was abrupt and that, according to the boyfriend, there is no known history of psychiatric conditions. 302 petitioning statement was completed by the boyfriend, with authorization for active warrant completed by [employer]. Psychiatric consultation was requested to evaluate patient for AMS/psychosis. Per angelina pbriend, patient has a diagnosis of Juvenile Parkinson's Disease and does utilize medicinal marijuana. 302 petitioning statement was completed by the patient's boyfriend, Rajesh Ruff. 302 warrant was granted by mental health delegate to allow for further investigation of these symptoms. Petitioning statement is summarized (additional detail can be found on original 302 packet): "Seng has juvenile parkinson's disease, she is in constant pain and somedays feels/acts as if shes an elderly woman. She has never had any mental issues since I've known her, only physical. I've known her for just over three years and we've been together for just about 2 years. Sometime between ThursdayAugust 04 and ThursdayAugust 06 everything changed in the blink of an eye...she seems to change "personalities" constantly...there are at least 3 if not 4 different ones...In all the years I've known Seng she has the kindest and most caring and loving heart/personality so I saw something was wrong immediately...she did get outside Thursday morning and I couldn't find her...only to find her a minute or two later barefoot a roaming around aimlessly...She speaks to herself and argues and answers herself..." Our psychiatric nurse liaison has made several attempts to reach out to the petitioner, who was able to provide collateral information. See collateral information in psychiatric liaison note. Summary - Diagnosis of Parkinson's "several years" ago, had been on Sinemet, but discontinued in March due to nausea. The only significant changes the boyfriend can recall for the patient recently are ~1 week of decreased appetite and increased nausea, as well as patient not sleeping as well. He states patient generally attends to her ADLs, but does get tired. AMS began 08/04 and worsened over the course of the weekend. This provider attempted psychiatric evaluation of the patient, accompanied by our psychiatric nurse liaison. Pt was initially observed to be sleeping soundly, 1:1 aid sitting at bedside. Pt was covering face with blanket, only unruly hair and right arm were visible from under her covers. Pt did slowly respond to her name being called, and began a series of various hand gestures (a wave, motion as if pinching with her thumb and index finger, forming the letter "L", and then using her middle finger toward this provider while laughing). Pt did eventually pull the covers from her face and began responding to questions verbally. Pt stated "Mortality. Morality. Moral." Pt was asked what that meant to her, and she stated "unclear." Pt then reports "too fast" - stating "the flow" "it's all around us" is going too fast. Pt again states "it's unclear. It's not registering, what you're say. I know you're talking to me, but it goes in one ear and out the other." When asked how long patient believes this has been happening, she states "forever." Pt reports it is too bright in her room, and continues to complain of this even though the lights are turned off and her blinds had been lowered. She is observed to be staring at the wall and states "Crevices. Cracks. They're crawling out, worming out." Pt states "It's Kelly, not Link, that you're looking for. They're in another castle. Brody has her. [place]." Pt then gestures with he hands as if picking up an item from the end of her bed and moving it. She states "Cipriano Potter...eating...eating all the time...gluttony." "Too much info, too much data, too much wondering, too much info - too wonderful to me." "Hurt - gone - delete - eliminate." "Trauma is for your mama." "CammieGerardo trujillo." Pt was asked questions related to orientation. She was asked her name at the beginning of our session, and stated it was "Teressa" - who we have since learned is her sister. She was later asked her name, to which she stated "Swati." Pt was asked the date, and responded with "September 23?" Then stated "January 03. . The wish [snapped her fingers]. That's the block and it should have never been. 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 Pt stated "DON'T LOOK. I TOLD YOU NOT TO LOOK. YOU DON'T LISTEN. HE [pointing at liaison nurse] ALWAYS LISTENS." Pt then continued to make statements about feeling things were "unclear" and "blocked." Pt was not able to provide any information about supports we could contact, and only laughed and rolled her eyes when her boyfriend's name was mentioned. Interview was then concluded and patient was encouraged to eat her lunch. Pt was informed we would remain involved in her case during her hospitalization and was encouraged to liu ch out to our service with any additional questions or concerns. Past Psychiatric History Previous Psych History: No known psychiatric history per patient's boyfriend (reportedly has known patient for the past 3 years). Outpatient Services: None Allergies Allergy/AdvReac Type Severity Reaction Status Date / Time Unable to Assess Allergy Unverified 08/08/19 10:46 Home Medications Home Medications Medication Instructions Recorded Confirmed Type Unobtainable 08/08/19 08/08/19 History Family History Pt unable to provide any information at this time regarding family history of psychiatric conditions. Boyfriend believes patient's sisters have been treated for depression or anxiety, but denies knowledge of similar events occurring for family members. Substance Abuse History UDS is positive for marijuana, pt is reported by boyfriend to have been certified for medical marijuana. Alcohol level was undetectable on admission. Pt unable to provide any information at this time regarding her substance abuse history. Personal History Living Arrangements Comments: Pt reportedly lived in [place] with her then- until 2015, then moved to [place] for 1 year. She later came to [place]. It is reported that patient's family lives in [place], [place]. Childhood: Pt reportedly has 6 siblings (4 of whom are deaf). It was reported by boyfriend that the patient had genetic testing "several years ago" for Parkinson's, both parents reportedly carry genes but have not displayed symptoms themselves. Employment Status: Disabled (related to Parkinson's Disease) Marital Status: (previously , relationship ended in 2015) Patient History Social History Preferred Language: Citizen Of [place] Current Living Situation: Family Smoking Status: Unknown if ever smoked Physical Exam Psychiatric: Orientation: alert and oriented to place (aware she is in the hospital, but not of city or name of facility); + not oriented to person and + not oriented to time Pt was initially asleep, but does arouse and is alert during conversation. When asked how to pronounce her name, she states "Teressa", and when asked what she prefers to be called, she states "Swati". When asked her full name, she does not respond. Pt initially believes the date to be "October 03?" then states "January 03." When asked the year, she states "Eleven - Eleven. The wish (and snaps her fingers). Pt is labile, initially cooperative with interview despite significant disorganization of thought. She become abruptly irritable toward the end of our encounter. Apperance: appropriately dressed (casually, wearing a t-shirt and matching leggings), + disheveled (hair is very messy) and appeared stated age Thin- appearing female, initially laying in bed with blanket covering face. Pt does appear younger than stated age. She is casually dressed in a t-shirt and matching leggings. Hair is rather messy, seemingly unkempt from sleeping heavily. Level of hygiene appears adequate. Eye Contact: + poor eye contact (stares at wall for most of encounter, only brief episdoes of eye contact) Speech: + abnormal rate/rhythm/volume of speech (nonsensical speech) Affect: + labile affect (laughing inappropriately, sudden irritability displayed) Thought Process: + thought blocking, + tangential thought process, + incoherent thought process, + word salad and + clanging Hallucinations: + auditory hallucinations and + visual hallucinations Pt is clearly responding to internal stimuli. Reporting seeing bug/worms crawling out of cracks in her ro om. Appears to be conversing with unseen individuals in room, making motions as if moving objects from the end of her bed. Cognition: + recent memory not intact, + remote memory not intact, + attention not intact and + language not intact Insight: + severely impaired insight Judgement: + severely impaired judgement Vital Signs (Past 24 Hours): Last Vital Signs Temp 36.8 C 08/08/19 23:05 Pulse 78 08/09/19 11:13 Resp 16 08/09/19 11:13 BP 106/68 08/09/19 11:13 Pulse Ox 97 08/09/19 11:13 Review of Systems Other than reporting feeling cold and admitting to thoughts being "unclear", patient does not verbalize any physical complaints. Difficulty obtaining thorough review of systems based on patient's level of disorganization. Coding Level of Care Code 40629 [facility] Intl Hosp Care Lvl 2 Diagnoses Altered mental status R41.82 Altered mental status type: unspecified Psychosis F29
--- NOTE | 2019-08-09 15:31 | Hospitalist Progress Note ---
Date of Service August 09, 2019 Assessment & Plan (1) Altered mental status: concern for psychosis versus other behavioral health disorder Marijuana Use -29 year old female who when brought into the emergency room and was acting inappropriately and made threats to admitting physician and then wandered to different section of the hospital before she was found - at the time admitting physician endorsed that patient already had normal lumbar puncture test, no urine infection, and CT head without acute findings and had initially recommended to emergency to have patient seen by behavioral prince to assess for mental disorder. -admission urine tox screen positive for only THC -normal TSH, negative test -she moves all of the extremities -however there were recommendations to admitting physician for further medical workup and there is a Brain MRI that is ordered -Brain MRI has not yet been performed because patient either cannot or would not answer questions to MRI safety sheet -08/09/2019: interactions with patient by day time hospitalist. Patient on 1 to 1 observation with director of emergency nursing sitting next to her. On introducing myself in the room, the patient was fixated on the provider's mask. She said Daniel Barraza and the Mask as if alluding to the Jose Mayers movies. When provider took down the mask, the patient then insisted that that the provider give her the mask and made hand gestures that provider should put the mask on her hand. When provider explained that this is not appropriate. She seem to allow for physical exam, but said no "gloves" when provider said of stepping out to get gloves. This interaction did not allow for physical exam and patient pretended to go back to sleep. Patient does not answer any questions appropriately even though she does not have and visible respiratory distress or dysarthria. -at this time, continue 1 to1 observation. as per nurse, patient's boyfriend planning to come in to hospital to fill out MRI safety sheet, hospitalist is concerned that patient may not cooperate to perform Brain MRI, hospitalist would not recommend sedating patient to get Brain MRI done as this can cause potential harm. would be better if patient can cooperate without sedation. behavioral health continues to be following the patient. patient may need prn ativan if agitation there is a 302 petition Admission and Anticipated Discharge Date Admission Date: August 08, 2019 Subjective Patient on 1 to 1 observation with director of emergency nursing sitting next to her. On introducing myself in the room, the patient was fixated on the provider's mask. She said Daniel Barraza and yje Mask as if alluding to the Jose Riana movies. When provider took down the mask, the patient then insisted that that the provider give her the mask and made hand gestures that provider should put the mask on her hand. When provider explained that this is not appropriate. She seem to allow for physical exam, but said no "gloves" when provider said of stepping out to get gloves. This interaction did not allow for physical exam and patient pretended to go back to sleep. Patient does not answer any questions appropriately even though she does not have and visible respiratory distress or dysarthria. Review of Systems Review of Systems: All systems reviewed & are unremarkable except as noted in Subjective Physical Exam Constitutional: comfortable Eyes: EOM intact bilaterally Respiratory: normal respiratory effort Cardiovascular: no acute telemetry events so far Neurologic: moves all extremities Results & Data Results & Data ([facility]) Vital Signs (Past 12 Hours) Vital Signs Temp Pulse Resp BP Pulse Ox 08/09/19 15:13 36.9 C 85 18 151/93 H 97 08/09/19 11:13 78 16 106/68 97 (1) Altered mental status Altered mental status type: unspecified Qualified Code(s): R41.82 - Altered mental status, unspecified
[2019-08-09] MEDS ORDERED: LORazepam 1 MG TAB PO PRN (16:08)
--- NOTE | 2019-08-09 16:23 | Communication Note ---
Date of Service: August 09, 2019 I attempted to evaluate Ms. Bullard today but her psychosis prevented any type of interaction and any approach I made towards her caused her to become more agitated. She was receiving one-on-one nursing and was marginally cooperative with that team so I exited the room and reviewed her chart and specifically a psychiatric consultation done by Dr. Correa We really do not have a lot of reliable history here. There is some talk of juvenile Irion's disease but this woman at least on my casual observation of her motor movements demonstrates absolutely no no indications of an underlying basal ganglia disorder and her speech while sparse and full of disjointed content is non-dysarthric her eye movements appear to be normal there is no choreiform activity obvious cerebellar ataxia tremor etc. I certainly could not evaluate reflexes strength or sensation nor could I do any type of mental status She is also apparently in possession of a medical marijuana card thus explaining her positive urine screen for marijuana. 1 wonders what underlying diagnosis she has it would justify this That having been said there really is no objective evidence of a prior psychiatric issue and on the surface this presents like an acute psychotic break in a woman who is older than the usual age in which this would appear In this setting she is had laboratory studies that are largely normal with exception of a minimal leukocytosis. CSF is absolutely normal. A CAT scan is normal. 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 These are generally preceded by several weeks of nonspecific malaise and that may be the case here but we do not have a history to support My suggestions would be: 1) obtain an anti-NMDA antibody titer if we can through a reference lab. 2) CT scan of the chest abdomen and pelvis with and without contrast looking for an underlying carcinoma and specifically for an ovarian teratoma or carcinoma 3) an MRI scan of the brain which in my opinion is likely to be normal here with normal CSF and finally 4) an EEG. I doubt however that she will tolerate any attempt to do this and or not he began to bother to schedule it until her behavior is more controlled and frankly I think obtaining the imaging studies noted above is going to be incredibly difficult without sedation and more control of her agitated state. I will check back with her tomorrow Jus Mai MD
[2019-08-09] MEDS: LORazepam 1 MG TAB PO STA ×2 (16:26→16:31)
[2019-08-09] MEDS ORDERED: LORazepam 0.25 MG/0.5 ML VIAL IV PRN (16:48)
[2019-08-09] MEDS: LORazepam 2 MG/ML VIAL (IM USE) IM STA ×2 (23:18→23:26)
[2019-08-10] MEDS: LORazepam 2 MG/ML VIAL (IM USE) IM PRN (00:18)
[2019-08-10] MEDS ORDERED: IOVERSOL 100ml IV PRN (02:28)
[2019-08-10] MEDS ORDERED: GADOBUTROL 65ML VIAL IV PRN (03:52)
--- NOTE | 2019-08-10 07:03 | CT Scan Report ---
CT abd pelvis IV con only CT DOSE: 459.33 mGy.cm HISTORY: ovarian teratoma or any underlying carcinoma TECHNIQUE: Multiaxial CT images of the abdomen and pelvis were performed following the use of intrave nous contrast. A dose lowering technique was utilized adhering to the principles of ALARA. COMPARISON STUDY: None. FINDINGS: The lung bases are clear. The liver, spleen, gallbladder, pancreas, kidneys, and adrenal gl ands are within normal limits. No bowel wall thickening or obstruction. The pelvic organs are unremar kable. No suspicious lytic or blastic osseous lesions. Small bilateral ovarian follicular cysts IMPRESSION: No significant abnormality identified within the abdomen or pelvis. Small bilateral ovarian follicula r cysts ACT 112: Negative or not required by law. The above report was generated using voice recognition software. It may contain grammatical, syntax or spelling errors. Electronically signed by: Juan Strickland M.D. 08/10/2019 7:01 AM
--- NOTE | 2019-08-10 07:05 | Magnetic Resonance Report ---
MR brain wo/w con CLINICAL HISTORY: Rule out CVA COMPARISON STUDY: No previous studies for comparison. TECHNIQUE: Utilizing a 1.5 Mary magnet and dedicated coil, multiplanar, multiecho imaging of the br ain was performed pre and postcontrast administration. IV administration of 7 mL of Gadavist contras t was uneventful. FINDINGS: Unremarkable signal characteristics of the cerebellar as well as cerebral hemispheres. Diff usion images show no evidence for an acute ischemic event. The ventricular system is midline. Postcontrast images are considered negative for enhancing lesion. IMPRESSION: Normal study ACT 112: Negative or not required by law. The above report was generated using voice recognition software. It may contain grammatical, syntax or spelling errors. Electronically signed by: Juan Strickland M.D. 08/10/2019 7:04 AM
--- NOTE | 2019-08-10 07:22 | CT Scan Report ---
CT chest w con CT DOSE: HISTORY: Neoplasm any underlying carcinoma TECHNIQUE: Multiaxial CT images of the chest were performed following the intravenous administration of contrast. A dose lowering technique was utilized adhering to the principles of ALARA. COMPARISON: None. FINDINGS: The lungs are clear. The mediastinal vascular structures are within normal limits. No media stinal or hilar lymphadenopathy. No pleural effusion or pneumothorax. Limited views of the upper abdo men demonstrate a normal liver and spleen. IMPRESSION: No significant abnormality identified within the chest. ACT 112: Negative or not required by law. The above report was generated using voice recognition software. It may contain grammatical, syntax or spelling errors. Electronically signed by: Juan Strickland M.D. 08/10/2019 7:21 AM
--- NOTE | 2019-08-10 11:16 | Psychiatric Progress Note ---
Date of Service August 10, 2019 Impression / Recommendations (1) Altered mental status: Differential includes substance-induced psychosis, psychosis due to a medical condition, agitated delirium, first episode primary thought disorder. There is still a lot of missing information, primarily information about her neurological condition and the work-up done in that regard, as well as recent substance use (UDS + THC, but synthetics were not tested on admission and there are many substances which do not show up in our drug screen). It is unclear if she has been taking Sinemet recently, which could also precipitate psychotic symptoms. -NMDA auto antibodies pending -Added synthetic cannabinoid and stimulant screen, lab will run if there is sufficient sample still available from admission -Consider additional labs to rule out medical causes of psychosis including HIV, syphilis, Lyme serology, vitamin B12/folate, ELAYNE , heavy metal screen, and EEG. Awaiting records from neurology at [facility] to ensure these were not performed as part of her work-up there, and to clarify her diagnosis and recent treatment. (2) Psychosis: Given atypical presentation and presence of underlying neurological condition, recommend work-up for medical causes of psychosis/AMS. This would be a very unusual presentation for first episode psychosis, there was no prodrome or mood disorder symptoms, and without a full workup to rule out medical causes, we cannot attribute her symptoms to a new psychotic disorder/primary psychiatric disorder. Interval History Identifying Information 29-year-old female with a history of juvenile Parkinson's disease, no psychiatric history, who lives in [place] and was admitted medically on 08/08/2019 after presenting to the ED via EMS for an acute change in mental status over the past 1 to 2 days. She was seen for initial psychiatric consultation for altered mental status yesterday, and seen today for follow-up. Chief Complaint " I don't remember, but my head is pretty clear". Subjective Subjective Patient was seen & assessed and interval progress reviewed. Overnight, she had a brain MRI and CT of the abdomen and pelvis, required soft limb restraints in order to maintain an IV, and received 1 mg of Ativan. She tolerated the studies, and restraints were then discontinued. Both MRI and CT were normal. NMDA autoantibody was drawn and is pending. I saw her with the liaison nurse, and found her seated crosslegged on her bed. She was calm and cooperative, although remains disoriented and requested to end the interview after about 20 minutes so that she could rest. She gave some conflicting and unrelated responses, but 75% of her answers were appropriate. She reports poor memory for the events prior to admission and for the last couple of days in the hospital, stating she does not recall anything unusual happening at home, and felt she was "normal" over the weekend prior to coming to the hospital. She remembers coming to the emergency room, and correctly states this is her third day in the hospital. She is oriented to the year and place, but not to the season, month, day, or date. She says she lives "in the area," but cannot remember if she lives with anyone, stating "it's just coming back to me." She initially states she does not remember her full name, but then states her name as well as her birthdate. She denies any recent changes in mood and describes it as "normal, fine." She denies anxiety, problems with sleep, changes in appetite or weight, hallucinations, and paranoia. She says she is originally from [place], but is not sure how long she has lived in [place]. She indicates that she "moved around a lot," living in [place] in [place] in the past. She states she sees a neurologist at [facility] for Juvenile Parkinson's, and denies any other medical problems. She is not sure if she has spoken to any of her friends or family since she has been here, and states she just wants to "be left alone to rest right now." Physical Exam Psychiatric Orientation: alert Oriented x 2/6 Apperance: appropriately dressed, appropriately groomed and appeared stated age Seated in no acute distress. Eye Contact: + fair eye contact Speech: normal rate/rhythm/volume of speech Patient appears somewhat suspicious initially, but softened as the interview progressed. Mild irritable edge with questioning "Normal, fine." Answers were goal-directed and appropriate 75% of the time, other times gave conflicting information or answers with unrelated information. Mild disorganization, confusion Suicidal Thoughts: denies suicidal thoughts Homicidal Thoughts: denies homicidal thoughts Hallucinations: no auditory hallucinations and no visual hallucinations Cognition: language grossly intact; + recent memory not intact and + remote memory not intact Insight: + impaired insight Judgement: + impaired judgement Vital Signs (Past 24 Hours) Last Vital Signs Temp 36.8 C 08/10/19 07:31 Pulse 100 H 08/10/19 07:31 Resp 18 08/10/19 07:31 BP 130/90 08/10/19 07:31 Pulse Ox 100 08/10/19 07:31 Results & Data ([facility]) Laboratory Results Laboratory Results - last 24 hr 08/08/19 08/08/19 10:40 19:45 Urine Synthetic Stimulants Pending Cannabinoids Comment Pending U Synth Cannabinoids Pending U Synth Cannabinoid Conf Pending Miscellaneous Test Pending Current Inpatient Medications Current Inpatient Medications: Current Inpatient Medications Acetaminophen (Tylenol) 650 mg PO Q4H PRN PRN Reason: Pain or Fever Stop: 09/07/19 20:07 Al Hydrox/Mg Hydrox/Simethicone (Maalox) 15 ml PO Q4H PRN PRN Reason: Dyspepsia Stop: 09/07/19 20:07 Gadobutrol (Gadavist 65ml) 5 ml IV ONCE PRN PRN Reason: Interaction Checking Stop: 08/14/19 03:51 Last Admin: 08/10/19 03:30 Dose: 5 ml Documented by: Lorazepam (Ativan) 0.25 mg in 0.5 mls @ 0.5 mls/min IV Q6H PRN PRN Reason: Agitation Stop: 09/08/19 16:47 Ioversol (Optiray 320 100ml) 100 ml IV ONCE PRN PRN Reason: Interaction Checking Stop: 08/14/19 02:27 Last Admin: 08/10/19 02:29 Dose: 93 ml Documented by: Lorazepam (Ativan) 1 mg PO Q6H PRN PRN Reason: Agitation Stop: 09/08/19 16:07 Lorazepam (Ativan) 1 mg IM Q6H PRN PRN Reason: Agitation Stop: 09/08/19 16:07 Last Admin: 08/10/19 00:18 Dose: 1 mg Documented by: Magnesium Hydroxide (Milk Of Magnesia) 30 ml PO Q12H PRN PRN Reason: Constipation Stop: 09/07/19 20:07 Ondansetron HCl (Zofran) 4 mg IV Q6H PRN PRN Reason: Nausea Stop: 09/07/19 20:07 Polyethylene Glycol (Miralax Powder Packet) 17 gm PO DAILY PRN PRN Reason: Constipation Stop: 09/07/19 20:07 (1) Altered mental status Altered mental status type: unspecified Qualified Code(s): R41.82 - Altered mental status, unspecified
[2019-08-10 14:12] LABS: Basophils # (auto) 0.02 K/uL (0-0.2); Basophils % (auto) 0.2 %; Eosinophils # (auto) 0.02 K/uL (0-0.5); Eosinophils % (auto) 0.2 %; Hemoglobin 14.6 g/dL (12.0-16.0); Immature Granulocytes # (auto) 0.02 K/uL (0.00-0.02); Immature Granulocytes % (auto) 0.2 %; Lymphocytes # (auto) 2.21 K/uL (1.2-3.4); Lymphocytes % (auto) 22.3 %; Mean Corpuscular Hemoglobin 29.3 pg (25-34); Mean Corpuscular Volume 86.3 fL (80-100); Mean Platelet Volume 10.1 fL (7.4-10.4); Monocytes # (auto) 0.88 K/uL (0.11-0.59); Monocytes % (auto) 8.9 %; Neutrophils # (auto) 6.76 K/uL (1.4-6.5); Neutrophils % (auto) 68.2 %; Platelet Count 295 K/uL (130-400); RDW Coefficient of Variation 13.4 % (11.5-14.5); RDW Standard Deviation 41.9 fL (36.4-46.3); Red Blood Count 4.98 M/uL (4.2-5.4); White Blood Count 9.91 K/uL (4.8-10.8)
[2019-08-10 14:44] LABS: BUN Creatinine Ratio 5.8 (10-20); Calcium 9.5 mg/dl (8.5-10.1); Creatinine Clr Calc Pharmacy 75.8 ml/min; Est GFR (African American) 104.3; Potassium 3.6 mmol/L (3.5-5.1)
--- NOTE | 2019-08-10 14:57 | Hospitalist Progress Note ---
Date of Service August 10, 2019 Assessment & Plan (1) Altered mental status: (2) Psychosis: 29-year-old female with apparent history of juvenile Parkinson disease, presented with altered mental status. Altered mental status, unclear etiology To the patient's mental status seems to be improving, she is oriented x3, answering all questions appropriately, although affect is flat, and is intermittently irritable Toxicologic etiology? Initial urine drug screen reveals positive marijuana Patient takes medical marijuana for chronic back pain, and nausea Screen for synthetic stimulants pending Question Sinemet overdose? Records from [facility] are being obtained, pending Infection unlikely Patient remains afebrile CSF fluid analysis negative for meningitis No clear source of infection at this time Other work-up Teratoma? CT chest and abdomen pelvis negative for tumor masses Anti-NMDA pending Brain MRI and CT head: No acute process HIV, syphilis, Lyme, vitamin B12 and folic acid, ELAYNE, heavy metal screen pending Underlying primary psychiatric disorder? Acute presentation favors against underlying psychiatric disorder per psychiatry service Awaiting records from neurologist at [facility] Appreciate neurology and psychiatry service recommendations DVT prophylaxis SCDs for now Discussed case and plan of care with patient in detail at length All questions were answered She is understanding, agreeable, comfortable plan of care Asked her permission if I could share information or ask questions to her significant other and family for her medical care Patient declined, states " they have all the information that they need". Admission and Anticipated Discharge Date Admission Date: August 08, 2019 Subjective Follow-up for altered mental status Seen with JOSE G White at the bedside throughout whole encounter Patient is resting in bed comfortable Oriented x3 Answers most questions appropriately She does appear to have somewhat of a flat affect, and occasionally irritable but overall is cooperative with interview and exam She reports that she does not remember exactly what happened, but does remember falling while holding her nephew in her arms, landing on the ground and hitting her head The next thing that she remembers is that she was being brought to the ER She reports that she has not been using any medication except for medical marijuana 4 weeks Denies using any recreational drugs On exam, no active headache, dizziness, nausea vomiting, change with vision, focal weakness or numbness Denies chest pain, shortness of breath, palpitations, abdominal pain, change in urination or bowel movement Denies any pain in her body Rates her mood is fine, denies depression anxiety No other symptoms Review of Systems Review of Systems: All systems reviewed & are unremarkable except as noted in HPI & below Physical Exam Physical Exam: General- oriented x 3, not in distress, speaks in sentences with no effort or accessory muscle use Head- atraumatic Eyes- PERRL, EOMI, anicteric ENT- oropharynx clear Neck- supple, no JVD, no adenopathy, no thyromegaly; carotids +2/2, no bruits appreciated Lungs- clear to auscultation bilaterally, no rales/wheezes Heart- normal rate, regular rhythm; no murmur, no gallop, no rub appreciated Abdomen- normal bowel sounds, nondistended, soft, nontender, no masses or hepatosplenomegaly Extremities- no pretibial edema, no calf tenderness; peripheral pulses intact Neuro- alert, oriented x 3; CN 2-12 grossly intact; motor 5/5 bilaterally;sensation 100% on all extremities; no other gross focal neurologic deficits Skin- warm & dry Psych-flat affect, calm and cooperative, denies depression or anxiety Results & Data Results & Data ([facility]) Vital Signs (Past 12 Hours) Vital Signs Temp Pulse Resp BP Pulse Ox 08/10/19 11:11 36.5 C 91 H 18 146/98 H 96 08/10/19 07:31 36.8 C 100 H 18 130/90 100 08/10/19 04:08 36.4 C L 98 H 15 124/83 96 Laboratory Results Laboratory Results - last 24 hr 08/08/19 08/08/19 08/08/19 10:40 10:40 19:45 WBC RBC Hgb Hct MCV MCH MCHC RDW Std Deviation RDW Coeff of Narda Plt Count MPV Immature Gran % (Auto) Neut % (Auto) Lymph % (Auto) [place] % (Auto) Eos % (Auto) Baso % (Auto) Immature Gran # (Auto) Neut # (Auto) Lymph # (Auto) [place] # (Auto) Eos # (Auto) Baso # (Auto) Sodium Potassium Chloride Carbon Dioxide Anion Gap BUN Creatinine Est Cr Clr Drug Dosing Est GFR ( Amer) Est GFR (Non-Af Amer) BUN/Creatinine Ratio Glucose Calcium Vitamin B12 RBC Folate Urine Synthetic Stimulants Pending Cannabinoids Comment Pending U Synth Cannabinoids Pending U Synth Cannabinoid Conf Pending Arsenic Lead Mercury ELAYNE Screen Lyme Disease IgG Ab Lyme Disease IgM Ab Miscellaneous Test Cancelled Ref Lab Test Result Pending 08/10/19 08/10/19 08/10/19 13:57 13:57 13:57 WBC RBC Hgb Hct MCV MCH MCHC RDW Std Deviation RDW Coeff of Narda Plt Count MPV Immature Gran % (Auto) Neut % (Auto) Lymph % (Auto) [place] % (Auto) Eos % (Auto) Baso % (Auto) Immature Gran # (Auto) Neut # (Auto) Lymph # (Auto) [place] # (Auto) Eos # (Auto) Baso # (Auto) Sodium Potassium Chloride Carbon Dioxide Anion Gap BUN Creatinine Est Cr Clr Drug Dosing Est GFR ( Amer) Est GFR (Non-Af Amer) BUN/Creatinine Ratio Glucose Calcium Vitamin B12 1008 H RBC Folate Pending Urine Synthetic Stimulants Cannabinoids Comment U Synth Cannabinoids U Synth Cannabinoid Conf Arsenic Pending Lead Pending Mercury Pending ELAYNE Screen Pending Lyme Disease IgG Ab Pending Lyme Disease IgM Ab Pending Miscellaneous Test Ref Lab Test Result 08/10/19 08/10/19 13:57 13:57 WBC 9.91 RBC 4.98 Hgb 14.6 Hct 43.0 MCV 86.3 MCH 29.3 MCHC 34.0 RDW Std Deviation 41.9 RDW Coeff of Narda 13.4 Plt Count 295 MPV 10.1 Immature Gran % (Auto) 0.2 Neut % (Auto) 68.2 Lymph % (Auto) 22.3 [place] % (Auto) 8.9 Eos % (Auto) 0.2 Baso % (Auto) 0.2 Immature Gran # (Auto) 0.02 Neut # (Auto) 6.76 H Lymph # (Auto) 2.21 [place] # (Auto) 0.88 H Eos # (Auto) 0.02 Baso # (Auto) 0.02 Sodium 137 Potassium 3.6 Chloride 102 Carbon Dioxide 29 Anion Gap 6.0 BUN 5 L D Creatinine 0.87 Est Cr Clr Drug Dosing 75.8 Est GFR ( Amer) 104.3 Est GFR (Non-Af Amer) 90.0 BUN/Creatinine Ratio 5.8 L Glucose 95 Calcium 9.5 Vitamin B12 RBC Folate Urine Synthetic Stimulants Cannabinoids Comment U Synth Cannabinoids U Synth Cannabinoid Conf Arsenic Lead Mercury ELAYNE Screen Lyme Disease IgG Ab Lyme Disease IgM Ab Miscellaneous Test Ref Lab Test Result (1) Altered mental status Altered mental status type: unspecified Qualified Code(s): R41.82 - Altered mental status, unspecified
[2019-08-10 15:24] LABS: Lyme Ab IgG w/WB Rflx Negative (Negative); Lyme Ab IgM w/WB Rflx Negative (Negative)
--- NOTE | 2019-08-10 16:02 | Electroencephalogram ---
EEG Procedure Note Date of Service August 10, 2019 Start / End Times Start Time: 06 End Time: 18 Referring Physician Jus Mai MD History Acute psychosis, vague history of "juvenile" Parkinson's disease theoretically on Sinemet dose unknown, positive urine toxicology screen for marijuana Home Medication List Home Medications Medication Instructions Recorded Confirmed Type Unobtainable 08/08/19 08/08/19 History Inpatient Medication List Gadobutrol (Gadavist 65ml) 5 ml IV ONCE PRN PRN Reason: Interaction Checking Stop: 08/14/19 03:51 Last Admin: 08/10/19 03:30 Dose: 5 ml Documented by: [id number] Ioversol (Optiray 320 100ml) 100 ml IV ONCE PRN PRN Reason: Interaction Checking Stop: 08/14/19 02:27 Last Admin: 08/10/19 02:29 Dose: 93 ml Documented by: [id number] Lorazepam (Ativan) 1 mg IM Q6H PRN PRN Reason: Agitation Stop: 09/08/19 16:07 Last Admin: 08/10/19 00:18 Dose: 1 mg Documented by: [id number] Discontinued Medications Haloperidol Lactate (Haldol) 2 mg IM NOW STA Stop: 08/09/19 06:28 Last Admin: 08/09/19 06:36 Dose: 2 mg Documented by: [id number] Haloperidol Lactate (Haldol) Confirm Administered Dose 5 mg .ROUTE .STK-MED ONE Stop: 08/09/19 06:33 Last Admin: 08/09/19 06:38 Dose: Not Given Documented by: [id number] Sodium Chloride (Nss 1000ml) 1,000 mls @ 999 mls/hr IV .Q1H1M CLEMENCIA Stop: 08/08/19 11:30 Last Infusion: 08/08/19 12:55 Dose: 0 mls/hr Documented by: [id number] Admin: 08/08/19 10:49 Dose: 999 mls/hr Documented by: [id number] Lorazepam (Ativan) 0.5 mg in 1 mls @ 1 mls/min IV NOW STA Stop: 08/08/19 10:37 Last Admin: 08/08/19 10:48 Dose: 1 mls/min Documented by: [id number] Lorazepam (Ativan) 0.5 mg in 1 mls @ 1 mls/min IV NOW STA Stop: 08/08/19 11:22 Last Admin: 08/08/19 17:08 Dose: Not Given Documented by: [id number] Lorazepam (Ativan) Confirm Administered Dose 2 mg .ROUTE .STK-MED ONE Stop: 08/08/19 16:18 Last Admin: 08/08/19 17:08 Dose: Not Given Documented by: [id number] Lorazepam (Ativan) 1 mg PO NOW STA Stop: 08/09/19 16:07 Last Admin: 08/09/19 16:31 Dose: Not Given Documented by: [id number] Lorazepam (Ativan) 1 mg IM NOW STA Stop: 08/09/19 22:12 Last Admin: 08/09/19 23:26 Dose: Not Given Documented by: [id number] Description This is a 21 electrode EEG with a single channel dedicated to limited EKG. The electrodes were placed in accordance with the International 10-20 system. This EEG was done as a bedside recording and is of good technical quality with fewer no muscle movement artifacts. Simultaneous video analysis of patient movement and behavior was obtained. Photic stimulation was performed. Initially the patient was somewhat drowsy and EEG was mildly diffusely slow with no normal background alpha rhythm but after photic stimulation which incidentally did not produce any significant abnormalities, the patient became more awake did move around a bit with some muscle movement artifacts but then settled down and EEG became quite normal in appearance with a background alpha rhythm of up to 9 to 10 Hz and of 20 V in amplitude, central theta pattern of about 7 to 8 Hz and of up to 40 V in amplitude which was symmetrical and a low voltage fast activity in the frontal regions consistent with beta activity and also symmetrical At no time during the drowsy or waking recording his or evidence for any potentially epileptogenic activity, periodic sharp and slow wave complexes etc. Interpretation This is a normal EEG during wakefulness with some brief duration initial drowsiness Clinical Correlation This EEG is normal without evidence for a focal or generalized encephalopathy, or potentially epileptogenic activity no evidence for sharp and slow wave discharges other rhythmic disturbances that could be seen theoretically in a prion disorder or other degenerative processes Jus Mai MD
--- NOTE | 2019-08-10 16:07 | Communication Note ---
Date of Service: August 10, 2019 I saw Ms. Bullard again today at about 330 and found her to be a little more cooperative but still very withdrawn, basically noncommunicative, sitting lo oking at the far wall, gesticulating with her hands but not answering any of my direct questions. According to the nurse who has been with her her responses during her shift have been quite similar. I reviewed the notes from Dr. Meier and Madeline from earlier today and she was apparently more conversant more alert cooperative but was still very vague about her medical history or places of residence etc. and certainly the diagnosis of juvenile Parkinson's disease apparently made in [place] was not expanded upon nor was her apparent dose of Sinemet revealed She still looks like someone who does not have a significant movement disorder and I really do not mushroom picker any significant bradykinesia and rigidity tremor but was very limited my ability to perform an exam and she clearly was resistant to my approaching any further than a 3 foot distance CSF, MRI of the brain, and CT of the chest abdomen pelvis are all normal leading me to have serious doubts about an anti-NMDA antibody syndrome as a cause of her acute psychosis If indeed she has access to Sinemet and does indeed have juvenile Parkinson's with an underlying defect in the dopaminergic pathways and she could have had a dopamine induced psychosis but she would have had to have taken quite a high dose and I would have expected some dyskinesias and did not see them We really need this diagnosis amplified further by records from [place]. 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 We also do not know what Sinemet dose she was given and does not know of dopamine agonists are available for her to take in the home At this time I am simply going to continue to observe her await records and again we will try to interact with her tomorrow perform more adequate neurologic examination Her EEG today was absolutely normal so we have no support for the potential diagnosis of nonconvulsive status epilepticus with postictal confusion or an ongoing low-grade nonconvulsive status epilepticus She theoretically has a medical marijuana card I will be curious as to what diagnosis has justified this although the threshold is admittedly quite low there if she may have taken excessive amounts of marijuana with a THC-induced psychosis As noted above minute recheck tomorrow in hopes that we have little more information uJs Mai MD
[2019-08-10] MEDS ORDERED: LACTATED RINGER'S 1,000 ML IV ONE (19:37)
[2019-08-10] MEDS ORDERED: POTASSIUM CHLORIDE 20 MEQ TABCR PO STA (19:37)
[2019-08-11] MEDS ORDERED: NSS + 20MEQ KCL 20 MEQ/1,000 ML BAG IV ONE (01:17)
--- NOTE | 2019-08-11 10:19 | Psychiatric Progress Note ---
Date of Service August 11, 2019 Impression / Recommendations (1) Altered mental status: 08/09 -Differential includes substance-induced psychosis, psychosis due to a medical condition, agitated delirium, first episode primary thought disorder. There is still a lot of missing information, primarily information about her neurological condition and the work-up done in that regard, as well as recent substance use (UDS + THC, but synthetics were not tested on admission and there are many substances which do not show up in our drug screen). It is unclear if she has been taking Sinemet recently, which could also precipitate psychotic symptoms. -NMDA auto antibodies pending -Added synthetic cannabinoid and stimulant screen, lab will run if there is sufficient sample still available from admission -Consider additional labs to rule out medical causes of psychosis including HIV, syphilis, Lyme serology, vitamin B12/folate, ELAYNE , heavy metal screen, and EEG. Awaiting records from neurology at [facility] to ensure these were not performed as part of her work-up there, and to clarify her diagnosis and recent treatment. 08/10 -Pending studies include: folate, stimulant and cannabinoid synthetics screen, THC quantiative level, heavy metal screen, and ELAYNE. -Lyme serology is negative, B12 slightly elevated at 1008. EEG, brain MRI, and CT of head, chest, abdomen/pelvis are unremarkable. -Awaiting records from patient's outpatient neurologist. -It does appear, from patient's report, that marijuana use has been heavier than initially suspected. Pt admits to trying several different strains recently and substance-induced psychosis remains high on the differential. (2) Psychosis: 08/09 -Given atypical presentation and presence of underlying neurological condition, recommend work-up for medical causes of psychosis/AMS. This would be a very unusual presentation for first episode psychosis, there was no prodrome or mood disorder symptoms, and without a full workup to rule out medical causes, we cannot attribute her symptoms to a new psychotic disorder/primary psychiatric disorder. 08/10 -It appears patient's mental status is slowly clearing over the course of her admission, which paired with her unique presentation continues to suggest that this is unlikely to be first episode psychosis. It seems quite possible that patient's presentation may be most consistent with substance-induced psychosis; however, there are still pending studies to rule out other possible organic causes. Interval History Identifying Information 29-year-old female with a history of juvenile Parkinson's disease, no psychiatric history, who lives in [place] and was admitted medically on 08/08/2019 after presenting to the ED via EMS for an acute change in mental status over the past 1 to 2 days. She was seen for initial psychiatric consultation for altered mental status on 08/09/2019, with daily follow-up by our team since that time. Chief Complaint "Um, I'm feeling a little faint." Review of Systems Notes Constitutional: reports feeling "faint" and admits to fatigue and confusion Cardiovascular: denied Respiratory: denied Gastrointestinal: denied Neurological: reports tingling in legs bilaterally, denies numbness/weakness Psychiatric: denies symptoms other than stated above Total of at least 10 systems reviewed, pertinent positives as above and in HPI. Subjective Subjective Patient's case was reviewed and discussed during morning report with psychiatric nurse liaison and supervising psychiatrist. Additional laboratory studies have been ordered and EEG was completed yesterday and was unremarkable. Pt was seen today to assess progress since admission. Psychiatric nurse liaison participated in encounter. Pt states that she is feeling a little faint. She admits that she had difficulty with breakfast this morning, stating "just felton, that was all I could keep down." Pt admits to ongoing nausea, claiming she has dealt with this "for a really long time." Pt is unable to recognize any correlation between her marijuana use and her intermittent nausea, as she claims "the nausea is random, no relationship." Pt does admit that she uses marijuana via vape pen several times a day, stating she was certified for use due to chronic pain she claims is related to her "Parkinson's." Pt admits she has been trying several different strains recently "to find what works best." She is unable to recall who certified her for the medicinal marijuana at this time, claiming "it's in the notes, I have all the notes on my phone. Whoever has my phone can tell you." Pt does not recall previous events similar to this, and states she has been using marijuana to treat her pain for "at least the last year or two." With additional questioning, patient does admit that she is still confused and has difficulty recalling answers. She reports there are "too many jump-ins. Too many, too many, too many." Pt admits that she is referring to her thoughts, stating she is having difficulty thinking clearly at this time. Pt reports feeling faint, as well as tingling in her legs. She states she has been walking to the bathroom with assistance from staff and aside from persistent nausea is feeling better overall. Pt verbalized awareness that her neurology records were being requested and was agreeable with this. She again encouraged use to "check the notes", referring to her cell phone. Pt denied other needs or concerns from our service at this time, and was encouraged to reach out with any additional questions or updates. Physical Exam Psychiatric Orientation: alert, oriented x 3 (able to answer all questions with accuracy) and cooperative Apperance: appropriately dressed (casually, wearing t-shirt and leggings) and + disheveled (hair appearing somewhat unruly) Eye Contact: + fair eye contact Motor Behavior: no abnormal motor movements Speech: normal rate/rhythm/volume of speech Affect: + flat affect (appearing fatigued/sedated) Thought Process: + concrete thought process (admits to racing thoughts, difficulty recalling information) but answers questions appropriately, or admits she is uncertain Thought Content: not paranoid, no delusions (does not verbalize any overt delusional beliefs) and no hopelessness Cognition: attention grossly intact and language grossly intact; + recent memory not intact Estimated Intelligence: consistent with education level Insight: + impaired insight (but markedly improved from admission) Judgement: + impaired judgement (but markedly improved from admission) Vital Signs (Past 24 Hours) Last Vital Signs Temp 36.9 C 08/11/19 07:42 Pulse 85 08/11/19 07:42 Resp 18 08/11/19 07:42 BP 122/87 08/11/19 07:42 Pulse Ox 97 08/11/19 07:42 Pt did permit brief physical examination: passive range of motion in arms and legs bilaterally was fluid, without evidence of lead pipe/cogwheel rigidity. Brief, fine initially tremor observed in hands when extended and unsupported, but this quickly resolved. Able to participate appropriately with fine finger movements, somewhat slowed. Results & Data ([facility]) Laboratory Results Laboratory Results - last 24 hr 08/08/19 08/08/19 08/10/19 10:40 10:40 13:57 WBC RBC Hgb Hct MCV MCH MCHC RDW Std Deviation RDW Coeff of Narda Plt Count MPV Immature Gran % (Auto) Neut % (Auto) Lymph % (Auto) Dolores % (Auto) Eos % (Auto) Baso % (Auto) Immature Gran # (Auto) Neut # (Auto) Lymph # (Auto) Dolores # (Auto) Eos # (Auto) Baso # (Auto) Sodium Potassium Chloride Carbon Dioxide Anion Gap BUN Creatinine Est Cr Clr Drug Dosing Est GFR ( Amer) Est GFR (Non-Af Amer) BUN/Creatinine Ratio Glucose Calcium Magnesium Vitamin B12 1008 H RBC Folate Arsenic Lead Mercury ELAYNE Screen Lyme Disease IgG Ab Lyme Disease IgM Ab Miscellaneous Test Cancelled Ref Lab Test Result Pending 08/10/19 08/10/19 08/10/19 13:57 13:57 13:57 WBC 9.91 RBC 4.98 Hgb 14.6 Hct 43.0 MCV 86.3 MCH 29.3 MCHC 34.0 RDW Std Deviation 41.9 RDW Coeff of Narda 13.4 Plt Count 295 MPV 10.1 Immature Gran % (Auto) 0.2 Neut % (Auto) 68.2 Lymph % (Auto) 22.3 Dolores % (Auto) 8.9 Eos % (Auto) 0.2 Baso % (Auto) 0.2 Immature Gran # (Auto) 0.02 Neut # (Auto) 6.76 H Lymph # (Auto) 2.21 Dolores # (Auto) 0.88 H Eos # (Auto) 0.02 Baso # (Auto) 0.02 Sodium Potassium Chloride Carbon Dioxide Anion Gap BUN Creatinine Est Cr Clr Drug Dosing Est GFR ( Amer) Est GFR (Non-Af Amer) BUN/Creatinine Ratio Glucose Calcium Magnesium Vitamin B12 RBC Folate Pending Arsenic Pending Lead Pending Mercury Pending ELAYNE Screen Pending Lyme Disease IgG Ab Negative Lyme Disease IgM Ab Negative Miscellaneous Test Ref Lab Test Result 08/10/19 08/10/19 13:57 13:57 WBC RBC Hgb Hct MCV MCH MCHC RDW Std Deviation RDW Coeff of Narda Plt Count MPV Immature Gran % (Auto) Neut % (Auto) Lymph % (Auto) Dolores % (Auto) Eos % (Auto) Baso % (Auto) Immature Gran # (Auto) Neut # (Auto) Lymph # (Auto) Dolores # (Auto) Eos # (Auto) Baso # (Auto) Sodium 137 Potassium 3.6 Chloride 102 Carbon Dioxide 29 Anion Gap 6.0 BUN 5 L D Creatinine 0.87 Est Cr Clr Drug Dosing 75.8 Est GFR ( Amer) 104.3 Est GFR (Non-Af Amer) 90.0 BUN/Creatinine Ratio 5.8 L Glucose 95 Calcium 9.5 Magnesium 2.4 Vitamin B12 RBC Folate Arsenic Lead Mercury ELAYNE Screen Lyme Disease IgG Ab Lyme Disease IgM Ab Miscellaneous Test Ref Lab Test Result Current Inpatient Medications Current Inpatient Medications: Current Inpatient Medications Acetaminophen (Tylenol) 650 mg PO Q4H PRN PRN Reason: Pain or Fever Stop: 09/07/19 20:07 Al Hydrox/Mg Hydrox/Simethicone (Maalox) 15 ml PO Q4H PRN PRN Reason: Dyspepsia Stop: 09/07/19 20:07 Gadobutrol (Gadavist 65ml) 5 ml IV ONCE PRN PRN Reason: Interaction Checking Stop: 08/14/19 03:51 Last Admin: 08/10/19 03:30 Dose: 5 ml Documented by: Lorazepam (Ativan) 0.25 mg in 0.5 mls @ 0.5 mls/min IV Q6H PRN PRN Reason: Agitation Stop: 09/08/19 16:47 Potassium Chloride/Sodium Chloride (Normal Saline W/20 Meq Kcl) 20 meq in 1,000 mls @ 80 mls/hr IV .[id number] ONE Stop: 08/11/19 13:46 Last Admin: 08/11/19 02:13 Dose: 80 mls/hr Documented by: Ioversol (Optiray 320 100ml) 100 ml IV ONCE PRN PRN Reason: Interaction Checking Stop: 08/14/19 02:27 Last Admin: 08/10/19 02:29 Dose: 93 ml Documented by: Lorazepam (Ativan) 1 mg PO Q6H PRN PRN Reason: Agitation Stop: 09/08/19 16:07 Lorazepam (Ativan) 1 mg IM Q6H PRN PRN Reason: Agitation Stop: 09/08/19 16:07 Last Admin: 08/10/19 00:18 Dose: 1 mg Documented by: Magnesium Hydroxide (Milk Of Magnesia) 30 ml PO Q12H PRN PRN Reason: Constipation Stop: 09/07/19 20:07 Ondansetron HCl (Zofran) 4 mg IV Q6H PRN PRN Reason: Nausea Stop: 09/07/19 20:07 Last Admin: 08/11/19 05:25 Dose: 4 mg Documented by: Polyethylene Glycol (Miralax Powder Packet) 17 gm PO DAILY PRN PRN Reason: Constipation Stop: 09/07/19 20:07 (1) Altered mental status Altered mental status type: unspecified Qualified Code(s): R41.82 - Altered mental status, unspecified
--- NOTE | 2019-08-11 15:11 | Hospitalist Progress Note ---
Date of Service August 11, 2019 Assessment & Plan (1) Altered mental status: (2) Psychosis: 29-year-old female with apparent history of juvenile Parkinson disease, presented with altered mental status. Altered mental status, unclear etiology In the setting of juvenile Parkinson's disease Patient is disoriented again today, with hallucinations, mostly anxious Toxicologic etiology? Initial urine drug screen reveals positive marijuana Patient takes medical marijuana for chronic back pain, and nausea; discussed with patient's significant other over the phone, per his knowledge, the patient has not changed the type or dose of the medical marijuana at this point He is not aware of the name of the physician prescribing this to the patient but does obtain this from [facility] As per psych liaison, the patient apparently was still smoking the medical marijuana but recently has started to use it via vape pen Screen for synthetic stimulants pending Infection unlikely Patient remains afebrile CSF fluid analysis negative for meningitis No clear source of infection at this time Other work-up Teratoma? CT chest and abdomen pelvis negative for tumor masses Anti-NMDA pending Brain MRI and CT head: No acute process HIV, syphilis, Lyme, vitamin B12 and folic acid, ELAYNE, heavy metal screen pending Underlying primary psychiatric disorder? Acute presentation favors against underlying psychiatric disorder per psychiatry service Appreciate neurology and psychiatry service recommendations Discussed with [facility] neurologist on-call Dr. Dunne to request for patient's transfer of care to their facility Admission to [facility] declined at this time, I was recommended to discuss case with Dr. Cantu who saw the patient at [facility] neurology clinic on February [address] Cantu Discussed case with psych patient liaison DVT prophylaxis SCDs for now Discussed case and plan of care with patient significant other Rajesh over the phone Per RN the patient gave permission for staff to share information with her significant other as well as her mother All questions were answered He is understanding, agreeable, comfortable plan of care Asked her permission if I could share information or ask questions to her significant other and family for her medical care Patient declined, states " they have all the information that they need". Admission and Anticipated Discharge Date Admission Date: August 08, 2019 Subjective Follow-up for altered mental status, in the setting of juvenile Parkinson's disease Seen with MEDICAL PROGRAM SPECIALIST at the bedside throughout whole encounter as well as RADHIKA Mayes Patient noted to be more anxious today, also having visual hallucinations, disoriented On exam, the patient appeared anxious, irritable, reassured Not oriented Denies headache, shortness of breath, chest pain, abdominal pain States she wants to walk outside the room, allowed with MEDICAL PROGRAM SPECIALIST and RN walking with her and with wheelchair behind her Upon return to her room, the patient was calmer, affect was flat, occasionally staring blankly, pointing to the door, standing up and sitting down again At 1 point she was on her knees on the floor, let it back to bed Mostly with disorganized behavior and speech Review of Systems Review of Systems: All systems reviewed & are unremarkable except as noted in HPI & below Physical Exam Physical Exam: General-not oriented, not in distress, speaks in sentences with no effort or accessory muscle use Eyes- anicteric Neck- no JVD Lungs- clear breath sounds bilaterally, no rales/wheezes Heart- normal rate, regular rhythm; no murmurs Abdomen- normal bowel sounds, nondistended, soft, nontender Extremities- no pretibial edema, no calf tenderness Neuro- alert, not oriented; appears confused, no gross focal neurologic deficits Skin- warm & dry Psych-flat affect, anxious Results & Data Results & Data ([facility]) Vital Signs (Past 12 Hours) Vital Signs Temp Pulse Pulse Resp BP Pulse Ox 08/11/19 15:02 36.6 C 77 18 154/112 H 96 08/11/19 13:26 36.8 C 87 18 130/84 95 08/11/19 07:42 36.9 C 85 18 122/87 97 08/11/19 07:32 79 08/11/19 04:08 36.4 C L 87 18 126/88 98 (1) Altered mental status Altered mental status type: unspecified Qualified Code(s): R41.82 - Altered mental status, unspecified
--- NOTE | 2019-08-11 16:24 | Communication Note ---
Date of Service: August 11, 2019 Ms. Bullard is a little more cooperative today but still has a very bizarre in her behavior stated that she "needed time to get her thoughts together" and then began to walk in the room her legs stiffened up and she slowly let herself down to the floor on her knees assuming almost a praying position before she christiano up again and then added some phrases that I really cannot comprehend. Her gait looked a little stiff but there were no dystonic postures no pill-rolling tremor and most of the time the gait was relatively fluid with good associated mov ements although it was very limited by her lack of voluntary effort and a single episode of stiffening and kneeling that apparently has been occurring episodically during the day. I did review the summary of the outpatient records on Dr. 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 She has been seen in multiple institutions and has had a long track record of trials with various dopaminergic agents the most recent being at [facility] where Sinemet was recommended but was never taken. She apparently was also seen at [facility] and I need to try the find these records in her chart at some point I have recommended she be sent back to [facility] for inpatient evaluation with both neurology and psychiatry as management of her behavior might require more specialized treatment specifically Nuplazid which is a relatively newly approved antipsychotic for Parkinson's psychoses I would not start Sinemet at this point as it can certainly precipitate psy choses or worsen psychoses in Parkinson patients already have them and her movements really are not sufficiently severe or typical that make me believe this would be an essential part of her management Admittedly I do not have any experience after nearly 50 years of practice with Parkinson's with this particular genetic defect or of juvenile onset so would have to defer to a movement disorders specialty practice and would hope that the individual at [facility] who saw her in February will get back to Dr. Meier with some recommendations Dr. Buck will be assuming the service tomorrow and I will make him aware of her presence in the hospital. I think any follow-up of Ms. Bullard will have to be at a tertiary center rather than at a local general neurology service Jus Mai MD
[2019-08-11] MEDS: LORazepam 2 MG/ML VIAL (IM USE) IM PRN (18:09)
[2019-08-11] MEDS ORDERED: LORazepam 2 MG/ML VIAL (IM USE) IM PRN (19:28)
[2019-08-11] MEDS ORDERED: LORazepam 1 MG TAB PO PRN (19:28)
[2019-08-11] MEDS: LORazepam 1 MG/2 ML VIAL IV PRN (22:17)
[2019-08-12] MEDS: LORazepam 1 MG/2 ML VIAL IV PRN ×3 (04:43→17:53)
--- NOTE | 2019-08-12 11:56 | Hospitalist Progress Note ---
Date of Service August 12, 2019 Assessment & Plan (1) Psychosis: 29-year-old female with apparent history of juvenile Parkinson disease, presented with altered mental status. Altered mental status, unclear etiology, possible acute psychosis, possible medical marijuana related In the setting of juvenile Parkinson's disease Patient is disoriented again today, with hallucinations, mostly anxious Toxicologic etiology from medical marijuana? Initial urine drug screen positive for marijuana; marijuana level and synthetic stimulant screen pending Patient takes medical marijuana for chronic back pain, and nausea; discussed with patient's significant other over the phone, per his knowledge, the patient has not changed the type or dose of the medical marijuana recently He is not aware of the name of the physician prescribing this to the patient but does obtain this from [facility] at [facility] Apparently only took Sinemet in February of this year, and has not resumed taking it since that time Infection unlikely Patient remains afebrile CSF fluid analysis negative for meningitis No clear source of infection at this time Other work-up Teratoma? CT chest and abdomen pelvis negative for tumor masses Anti-NMDA pending Brain MRI and CT head: No acute process Lyme negative, vitamin B12 1008 and folic acid pending, ELAYNE pending, heavy metal screen pending Underlying primary psychiatric disorder? Acute presentation favors against underlying psychiatric disorder per psychiatry service PRN Ativan recommended Discussed case with Dr. Mai from neurology service Recommend transfer to [facility] for tertiary level of care evaluation Discussed with Dr. Lopez-hospitalist who kindly accepted the patient, plan to consult neuropsychiatry Discussed with patient's significant other Peter in detail and at length All questions were answered He is understanding, agreeable, comfortable with plan of care DVT prophylaxis SCDs for now Disposition Transfer to [facility] Admission and Anticipated Discharge Date Admission Date: August 08, 2019 Subjective Follow-up for altered mental status Per RN, the patient was anxious earlier this morning, required Ativan IV Also noted to have not slept much overnight Seen with JOSE G Melo at the bedside throughout whole encounter Patient is seated at the edge of the bed, not in distress, comfortable Calm, cooperative overall on exam Cannot tell me she is in the hospital but cannot state where she lives Exhibits sparse speech, also looks away and says random phrases in the middle of interview Denies headache, dizziness, chest pain, shortness of breath, abdominal pain Ambulated in the hallways briefly today but was easily tired No other symptoms Review of Systems Review of Systems: All systems reviewed & are unremarkable except as noted in HPI & below Physical Exam Physical Exam: General- oriented x 2, not in distress, speaks in sentences with no effort or accessory muscle use Eyes- anicteric Neck- no JVD Lungs- clear BS bilaterally, no crackles, no wheezing Heart- normal rate, regular rhythm; no murmurs Abdomen- normal bowel sounds, nondistended, soft, nontender Extremities- no pretibial edema, no calf tenderness Neuro- alert, oriented x2; no gross focal neurologic deficits Skin- warm & dry Psych-affect mostly flat, positive disorganized thoughts Results & Data Results & Data ([facility]) Vital Signs (Past 12 Hours) Vital Signs Temp Pulse Pulse Resp BP BP Pulse Ox 08/12/19 10:52 36.8 C 97 H 18 127/83 97 08/12/19 09:09 87 08/12/19 07:34 36.6 C 104 H 16 135/95 97 08/12/19 03:28 36.7 C 96 H 20 114/79 100
--- NOTE | 2019-08-12 12:16 | Discharge Summary ---
Date of Service August 12, 2019 Admission HPI Per Admitting Provider 29 year old woman brought in for altered mental status. Medical history significant only for Juvenile Parkinson. History obtained from ER physician. Patient refused to talk to me and was hostile. Initially, she wanted me to stand close to the door stating that 'she is feeling attacked' She did not want to discuss anything or answer any of my questions. At some point, she asked to be left alone and asked if I want her to punch me. Per ER physician, boyfriend reported patient feeling down yesterday and this morning, reported to be acting completely out of character with multiple personality. No reported loss of consciousness, chest pain, focal weakness. Admission Exam Per Admitting Provider Constitutional: Patient refused exam Principal Diagnosis Altered mental status, possible acute psychosis, in the setting of juvenile Parkinson's disease Discharge Exam General- oriented x 2, not in distress, speaks in sentences with no effort or accessory muscle use Eyes- anicteric Neck- no JVD Lungs- clear BS bilaterally, no crackles, no wheezing Heart- normal rate, regular rhythm; no murmurs Abdomen- normal bowel sounds, nondistended, soft, nontender Extremities- no pretibial edema, no calf tenderness Neuro- alert, oriented x2; no gross focal neurologic deficits Skin- warm & dry Psych-affect mostly flat, positive disorganized thoughts Discharge Data Allergies Allergy/AdvReac Type Severity Reaction Status Date / Time Unable to Assess Allergy Unverified 08/08/19 10:46 Consultations 08/08/19 15:48 ED Decision to Admit Stat 08/08/19 20:08 Consult Case Management - Discharge Planning Routine Consult Neurology Routine Consult Psychiatry Routine Consult Psychiatry Routine 08/10/19 11:28 Consult Health Information Management Routine Ordered Studies 08/08/19 10:20 CT head/brain wo con Stat FINDINGS: No acute intracranial hemorrhage, midline shift or mass effect is present. The ventricular system is unremarkable. The basilar cisterns are patent. No extra-axial collections are present. There are no findings to suggest acute dural sinus thrombosis or acute territorial infarct. No significant calvarial abnormalities are present. Visualized portions of the sinuses and mastoid air cells are clear. IMPRESSION: No acute intracranial findings. 08/09/19 20:49 CT chest w con Urgent FINDINGS: The lungs are clear. The mediastinal vascular structures are within normal limits. No mediastinal or hilar lymphadenopathy. No pleural effusion or pneumothorax. Limited views of the upper abdomen demonstrate a normal liver and spleen. IMPRESSION: No significant abnormality identified within the chest. 08/09/19 22:10 CT abd pelvis IV con only CT DOSE: 459.33 mGy.cm HISTORY: ovarian teratoma or any underlying carcinoma TECHNIQUE: Multiaxial CT images of the abdomen and pelvis were performed following the use of intravenous contrast. A dose lowering technique was utilized adhering to the principles of ALARA. COMPARISON STUDY: None. FINDINGS: The lung bases are clear. The liver, spleen, gallbladder, pancreas, kidneys, and adrenal glands are within normal limits. No bowel wall thickening or obstruction. The pelvic organs are unremarkable. No suspicious lytic or blastic osseous lesions. Small bilateral ovarian follicular cysts IMPRESSION: No significant abnormality identified within the abdomen or pelvis. Small bilate ral ovarian follicular cystsCT abd pelvis IV con only Urgent 08/10/19 01:28 MR brain wo/w con Urgent FINDINGS: Unremarkable signal characteristics of the cerebellar as well as cerebral hemispheres. Diffusion images show no evidence for an acute ischemic event. The ventricular system is midline. Postcontrast images are considered negative for enhancing lesion. IMPRESSION: Normal study Hospital Course (1) Psychosis: 29-year-old female with apparent history of juvenile Parkinson disease, presented with altered mental status. Altered mental status, unclear etiology, possible acute psychosis, possible medical marijuana related In the setting of juvenile Parkinson's disease Since admission, the patient has shown minimal improvement Still exhibiting bizarre behavior, limited speech, saying random things, occasionally having visual hallucinations However she has not exhibited aggressive behavior She still needs one-to-one observation She has noted to be weak when ambulating, needs PT OT evaluation, fall precautions Toxicologic etiology from medical marijuana? Initial urine drug screen positive for marijuana; marijuana level and synthetic stimulant screen pending Patient takes medical marijuana for chronic back pain, and nausea; discussed with patient's significant other over the phone, per his knowledge, the patient has not changed the type or dose of the medical marijuana recently He is not aware of the name of the physician prescribing this to the patient but does obtain this from [facility] Apparently only took Sinemet in February of this year, and has not resumed taking it since that time Underlying primary psychiatric disorder? Acute presentation favors against underlying psychiatric disorder per psychiatry service PRN Ativan recommended Infection unlikely Patient remains afebrile CSF fluid analysis negative for meningitis No clear source of infection at this time Other work-up Teratoma? CT chest and abdomen pelvis negative for tumor masses Anti-NMDA pending Brain MRI and CT head: No acute process Lyme negative, vitamin B12 1008 and folic acid pending, ELAYNE pending, heavy metal screen pending Discussed case with Dr. Mai from neurology service Recommend transfer to [facility] for tertiary level of care evaluation Discussed with Dr. Lopez-hospitalist who kindly accepted the patient, plan to consult neuropsychiatry Discussed with patient's significant other Peter in detail and at length All questions were answered He is understanding, agreeable, comfortable with plan of care DVT prophylaxis SCDs for now Disposition Transfer to [facility] Total Time Total Time Spent Total Time Spent (In Minutes): 80 minutes Discharge Plan Discharge Items Reason For Visit: ALTERER MENTAL STATUS Discharge Diagnosis: Altered mental status, possible acute psychosis, history of juvenile Parkinson disease Activity: As commented below Activity Comment: One-to-one observation, fall precautions patient is a high risk for fall Driving/Machine Use: No driving Non-emergency contact: Primary Care Provider Call non-emergency contact if: you have any medication questions, your symptoms worsen and you have a fever Follow-up/Referrals: PT,DECLINED [Primary Care Provider] - Diet: Regular Addtl Attending Provider Instructions: Please refer to accompanying hospital discharge summary for further details Pending Studies at Discharge: Yes Studies:: Please refer to accompanying hospital discharge summary for further details Stand-Alone Forms: [employer], Suicide Prevention Resources Skilled Items Patient informed of condition?: Yes DNR: No Discharge Level of Care: Other Communicable Disease: No Discharge Prognosis: Other Lines: Peripheral IV Urinary Catheter: No Medications and DC Order Prescriptions: New acetaminophen 325 mg Tablet 650 mg PO Q4H PRN (Reason: fever or pain) Qty: 10 RF: 0 lorazepam 1 mg Tablet 1 mg PO Q4H PRN (Reason: anxiety) Qty: 10 RF: 0 MAG-AL 200-200 mg/5 mL Suspension 15 ml PO Q4H PRN (Reason: dyspepsia) Qty: 3000 RF: 0 No Action Unobtainable RF: 0 Admission Data Admit Date/Time: 08/08/19 18:25 Attending Provider: Wilton Higgins Admit Provider: Justine Wong I. Primary Care Provider: PT,DECLINED Other Providers: Malgorzata Correa ; Justine Wong I. ; Jus Mai ; Aly Nava
[2019-08-13 23:00] LABS: Anti Nuclear Antibody Screen POSITIVE (NEGATIVE); Arsenic Blood <3 mcg/L (<23); Lead Blood <1 mcg/dL (<5); Mercury, blood <4 mcg/L (<=10)
[2019-08-17 08:49] LABS: Marijuana Quant, GCMS Urine 245 ng/mL (<5)
[2019-08-29 15:35] LABS: Synthetic Cannabinoid Qual Ur NEGATIVE
== END 2019-08-12 19:03 | disposition short-term general hospital (02) | DRG 948 ==
LOC: ED 09:56 → 2N 18:25 → SUATTDRO 18:25 → 2N 19:38 → 2W 21:24

== ENCOUNTER 2020-07-04 16:28 | Inpatient (IN) ==
--- NOTE | 2020-07-04 16:53 | Emergency Department Note ---
Impression & Plan Psychosis ED Provider Note Provider: Bryan Ferreira MD DATE OF SERVICE: 07/04/2020 CHIEF COMPLAINT: Mental health evaluation HISTORY OF PRESENT ILLNESS: Patient is a 30-year-old female reportedly with a history of juvenile Parkinson's per the patient presenting here today via ambulance from home on a 302 mental health evaluation. Interviewed the patient with the correctional casework specialist upon arrival and she states that she is feeling okay. Denies chest pain or abdominal pain. States she is eating and drinking well. Patient denies smoking. When asked if she use any illicit drugs or marijuana s he became evasive and asked why we needed to know. Patient suddenly all of a sudden sat up in the bed from a supine state and started screaming " Venus and Yair. Venus and Yair Yeimy?" Repetitively for approximately 15 to 20 seconds and then says that silly and laid back down. Asking the patient what this meant to her if she knew these people were she would not answer. Discussed with the patient that by report her amaury Mena had concerns about her and wanted her evaluated here, she only stated that he is my . She occasionally will whisper things but denies auditory and visual hallucinations to me. There is some inappropriate laughter. Patient later reports a mild headache. No history of traumas reported. Did ask the patient about reports that she is not been eating or drinking or having nausea or vomiting at home and she denies this. REVIEW OF SYSTEMS: A total of 10 review of systems was obtained and negative except as stated above in the HPI. PAST MEDICAL HISTORY: As noted above MEDICATIONS: Patient is unsure. Per EMS report the patient's been off Seroquel and gabapentin for "some time ". SOCIAL HISTORY: Patient denies smoking but is evasive when asked about illicit drugs. EMS reports she has been using medical marijuana. PHYSICAL EXAM: GENERAL: Lying on the bed in room A5 resting Head: normocephalic and atraumatic EYES: No injection, discharge or icterus. NECK: Trachea midline. ENT: Mucous membranes pink and moist. LUNGS: Airway patent. No retractions. Breath sounds clear anteriorly HEART: Regular rate and rhythm. No chest wall tenderness ABDOMEN: Soft and non-tender, without guarding or rebound. SKIN: Acyanotic, warm, dry, without rashes EXTREMITIES: Without swelling, tenderness or deformity NEUROLOGICAL: No focal deficits. No aphasia. No facial droop or slurred speech. No significant resting tremor appreciated during interview Psych: Patient denies auditory and visual hallucinations but during the interview is laughing inappropriately at times and intermittently whispering. As noted above, suddenly sat up and started screaming names Patient's laboratory studies and imaging reviewed. Differential includes Mood disorder, infection, hypoglycemia, electrolyte abnormalities, cardiac sources, intracerebral event, toxicologic, trauma, neurologic, as well as other pathologies. IMPRESSION/MEDICAL DECISION MAKING: Patient here in a 302 warrant given concerns of her fianc or Rajesh at home. Patient denies significant complaints besides a mild headache at the current time. She is unable to respond if she is on home medications but by EMS reports she has not been taking her prescribed gabapentin or Seroquel. Not having focal neurological deficit but seems to be responding to external stimuli and having bizarre behaviors. Review of medical records indicate somewhat similar event last July and discharge summary from [place] was obtained. office services manager assist with evaluation and additional collateral history is obtained. Basic blood work and urine studies were ordered. Records from [place] indicate last year she had extensive work-up including LP and neuro and psychiatric consultation. She was discharged to their psychiatric unit for further care after extensive organic medical work-up. Her significant other Rajesh states she was basically back to normal and thus was given a trial off medications recently and seems to be failing this. Blood work here today without significant acute concerning abnormalities noted. Patient again appears to be having active psychosis and I do have safety concerns her ability to care for herself given her inappropriate behaviors. Will uphold the involuntary mental health commitment at this time; 302 signed. Bed search to be initiated. Patient became somewhat more anxious and given a 5 mg oral dose of Zyprexa here for this. Minimal improvement and later given additional 5 mg as she is still yelling out at times. Patient's significant other Rajesh was present and updated at bedside and he is in agreement with the plan. Bed search again has been initiated for inpatient psychiatric care. DIAGNOSIS: Psychosis DISPOSITION: Signed out pending bed placement Past Med/Surg History Social History Smoking Status: Unknown if ever smoked Preferred Language: Congolese marital status: Single Current Living Situation: Family Feels Safe at Home: Declines to Answer Assistive Devices: Walker Allergies Allergies Allergy/AdvReac Type Severity Reaction Status Date / Time pineapple Allergy Hives Verified 07/04/20 16:58 gluten AdvReac Nausea Verified 07/04/20 16:59 Home Meds Home Medications Medication Instructions Recorded Confirmed cholecalciferol (vitamin D3) 1,000 mcg PO DAILY 07/04/20 07/04/20 [Vitamin D3] gabapentin 300 mg PO TID 07/04/20 07/04/20 ginkgo biloba [Ginkoba] 40 mg PO DAILY 07/04/20 07/04/20 multivitamin 1 tab PO DAILY 07/04/20 07/04/20 vitamin [id number] acid 1 tab PO DAILY 07/04/20 07/04/20 Results & Data (ED) Vital Signs Vital Signs - 24 hr 07/04/20 16:33 07/04/20 23:59 Temperature 36.9 C 36.8 C Temperature Source Oral Oral Pulse Rate 90 Pulse Rate [Right Finger] 87 Pulse Rhythm Regular Pulse Strength Normal Respiratory Rate 18 20 Respiratory Effort / Characteristics Non-Labored Spontaneous Respiratory Depth Normal Respiratory Pattern Regular Blood Pressure 120/75 Blood Pressure [Right Arm] 118/68 Blood Pressure Mean 90 Blood Pressure Mean [Right Arm] 84 Blood Pressure Position Lying Blood Pressure Position [Right Arm] Sitting Pulse Oximetry 97 96 Oxygen Delivery Method Room Air Room Air Sepsis Recent Fever Within 48 Hours No Sepsis New/Unexplained Change in Mental Status N/A Sepsis Action Taken by Nursing No Action Required Laboratory Data Result diagrams: 07/04/20 16:55 07/04/20 16:55 Lab Results 07/04/20 07/04/20 07/04/20 Range/Units 16:47 16:47 16:55 WBC 10.05 (4.8-10.8) K/uL RBC 4.95 (4.2-5.4) M/uL Hgb 14.8 (12.0-16.0) g/dL Hct 42.9 (37-47) % MCV 86.7 (80-100) fL MCH 29.9 (25-34) pg MCHC 34.5 (32-36) g/dL RDW Std Deviation 42.2 (36.4-46.3) fL RDW Coeff of Narda 13.4 (11.5-14.5) % Plt Count 264 (130-400) K/uL MPV 10.2 (7.4-10.4) fL Immature Gran % (Auto) 0.3 % Neut % (Auto) 56.9 % Lymph % (Auto) 36.1 % Dukes % (Auto) 6.0 % Eos % (Auto) 0.6 % Baso % (Auto) 0.1 % Neut # (Auto) 5.72 (1.4-6.5) K/uL Lymph # (Auto) 3.63 H (1.2-3.4) K/uL Dukes # (Auto) 0.60 H (0.11-0.59) K/uL Eos # (Auto) 0.06 (0-0.5) K/uL Baso # (Auto) 0.01 (0-0.2) K/uL Immature Gran # (Auto) 0.03 H (0.00-0.02) K/uL Sodium (136-145) mmol/L Potassium (3.5-5.1) mmol/L Chloride (98-107) mmol/L Carbon Dioxide (21-32) mmol/L Anion Gap (3-11) BUN (7-18) mg/dl Creatinine (0.6-1.2) mg/dl Est Cr Clr Drug Dosing Est GFR ( Amer) ml/min Est GFR (Non-Af Amer) ml/min BUN/Creatinine Ratio (10-20) Glucose (70-99) mg/dl Calcium (8.5-10.1) mg/dl Total Bilirubin (0.2-1) mg/dl AST (15-37) U/L ALT (12-78) U/L Alkaline Phosphatase (45-117) U/L Total Protein (6.4-8.2) gm/dl Albumin (3.4-5.0) gm/dl Globulin (2.5-4.0) gm/dl Albumin/Globulin Ratio (0.9-2) TSH (0.300-4.500) uIu/ml HCG, Qual (Negative) Urine Color Urine Appearance (Clear) Urine pH (4.5-7.5) Ur Specific Moore (1.000-1.030) Urine Protein (Negative) Urine Glucose (UA) (Negative) Urine Ketones (Negative) Urine Blood (Negative) Urine Nitrite (Negative) Urine Bilirubin (Negative) Urine Urobilinogen (Negative) Ur Leukocyte Esterase (Negative) Salicylates (2.8-20) mg/dl Urine Opiates Screen (Neg) Ur Methadone, Qual (Neg) Acetaminophen (10-30) ug/ml Urine Barbiturates (Neg) Ur Phencyclidine (PCP) (Neg) U Amphetamin/Meth Scrn (Neg) MDMA (Ecstasy) Screen (Neg) U Benzodiazepines Scrn (Neg) Ur Cocaine Metabolite (Neg) U Marijuana (THC) Screen (Neg) Ethyl Alcohol mg/dL (0-3) mg/dl COVID-19 Eval Order Covid19 at [facility] SARS-CoV-2 (PCR) NEGATIVE (Negative) 07/04/20 07/04/20 07/04/20 Range/Units 16:55 16:55 16:55 WBC (4.8-10.8) K/uL RBC (4.2-5.4) M/uL Hgb (12.0-16.0) g/dL Hct (37-47) % MCV (80-100) fL MCH (25-34) pg MCHC (32-36) g/dL RDW Std Deviation (36.4-46.3) fL RDW Coeff of Narda (11.5-14.5) % Plt Count (130-400) K/uL MPV (7.4-10.4) fL Immature Gran % (Auto) % Neut % (Auto) % Lymph % (Auto) % Dukes % (Auto) % Eos % (Auto) % Baso % (Auto) % Neut # (Auto) (1.4-6.5) K/uL Lymph # (Auto) (1.2-3.4) K/uL Dukes # (Auto) (0.11-0.59) K/uL Eos # (Auto) (0-0.5) K/uL Baso # (Auto) (0-0.2) K/uL Immature Gran # (Auto) (0.00-0.02) K/uL Sodium 137 (136-145) mmol/L Potassium 3.6 (3.5-5.1) mmol/L Chloride 101 (98-107) mmol/L Carbon Dioxide 30 (21-32) mmol/L Anion Gap 5.0 (3-11) BUN 12 (7-18) mg/dl Creatinine 0.82 (0.6-1.2) mg/dl Est Cr Clr Drug Dosing Not Reportable Est GFR ( Amer) 111.3 ml/min Est GFR (Non-Af Amer) 96.0 ml/min BUN/Creatinine Ratio 14.6 (10-20) Glucose 88 (70-99) mg/dl Calcium 10.1 (8.5-10.1) mg/dl Total Bilirubin 0.5 (0.2-1) mg/dl AST 8 L (15-37) U/L ALT 16 (12-78) U/L Alkaline Phosphatase 73 (45-117) U/L Total Protein 9.3 H (6.4-8.2) gm/dl Albumin 4.8 (3.4-5.0) gm/dl Globulin 4.5 H (2.5-4.0) gm/dl Albumin/Globulin Ratio 1.1 (0.9-2) TSH 1.350 (0.300-4.500) uIu/ml HCG, Qual (Negative) Urine Color Urine Appearance (Clear) Urine pH (4.5-7.5) Ur Specific Moore (1.000-1.030) Urine Protein (Negative) Urine Glucose (UA) (Negative) Urine Ketones (Negative) Urine Blood (Negative) Urine Nitrite (Negative) Urine Bilirubin (Negative) Urine Urobilinogen (Negative) Ur Leukocyte Esterase (Negative) Salicylates < 1.7 L (2.8-20) mg/dl Urine Opiates Screen (Neg) Ur Methadone, Qual (Neg) Acetaminophen < 2 L (10-30) ug/ml Urine Barbiturates (Neg) Ur Phencyclidine (PCP) (Neg) U Amphetamin/Meth Scrn (Neg) MDMA (Ecstasy) Screen (Neg) U Benzodiazepines Scrn (Neg) Ur Cocaine Metabolite (Neg) U Marijuana (THC) Screen (Neg) Ethyl Alcohol mg/dL < 3.0 (0-3) mg/dl COVID-19 Eval Order SARS-CoV-2 (PCR) (Negative) 07/04/20 07/04/20 07/04/20 Range/Units 16:55 19:56 19:56 WBC (4.8-10.8) K/uL RBC (4.2-5.4) M/uL Hgb (12.0-16.0) g/dL Hct (37-47) % MCV (80-100) fL MCH (25-34) pg MCHC (32-36) g/dL RDW Std Deviation (36.4-46.3) fL RDW Coeff of Narda (11.5-14.5) % Plt Count (130-400) K/uL MPV (7.4-10.4) fL Immature Gran % (Auto) % Neut % (Auto) % Lymph % (Auto) % Dukes % (Auto) % Eos % (Auto) % Baso % (Auto) % Neut # (Auto) (1.4-6.5) K/uL Lymph # (Auto) (1.2-3.4) K/uL Dukes # (Auto) (0.11-0.59) K/uL Eos # (Auto) (0-0.5) K/uL Baso # (Auto) (0-0.2) K/uL Immature Gran # (Auto) (0.00-0.02) K/uL Sodium (136-145) mmol/L Potassium (3.5-5.1) mmol/L Chloride (98-107) mmol/L Carbon Dioxide (21-32) mmol/L Anion Gap (3-11) BUN (7-18) mg/dl Creatinine (0.6-1.2) mg/dl Est Cr Clr Drug Dosing Est GFR ( Amer) ml/min Est GFR (Non-Af Amer) ml/min BUN/Creatinine Ratio (10-20) Glucose (70-99) mg/dl Calcium (8.5-10.1) mg/dl Total Bilirubin (0.2-1) mg/dl AST (15-37) U/L ALT (12-78) U/L Alkaline Phosphatase (45-117) U/L Total Protein (6.4-8.2) gm/dl Albumin (3.4-5.0) gm/dl Globulin (2.5-4.0) gm/dl Albumin/Globulin Ratio (0.9-2) TSH (0.300-4.500) uIu/ml HCG, Qual Negative (Negative) Urine Color Yellow Urine Appearance Clear (Clear) Urine pH 6.5 (4.5-7.5) Ur Specific Moore 1.008 (1.000-1.030) Urine Protein Negative (Negative) Urine Glucose (UA) Negative (Negative) Urine Ketones Negative (Negative) Urine Blood Negative (Negative) Urine Nitrite Negative (Negative) Urine Bilirubin Negative (Negative) Urine Urobilinogen Negative (Negative) Ur Leukocyte Esterase Negative (Negative) Salicylates (2.8-20) mg/dl Urine Opiates Screen Neg (Neg) Ur Methadone, Qual Neg (Neg) Acetaminophen (10-30) ug/ml Urine Barbiturates Neg (Neg) Ur Phencyclidine (PCP) Neg (Neg) U Amphetamin/Meth Scrn Neg (Neg) MDMA (Ecstasy) Screen Neg (Neg) U Benzodiazepines Scrn Neg (Neg) Ur Cocaine Metabolite Neg (Neg) U Marijuana (THC) Screen Pos H (Neg) Ethyl Alcohol mg/dL (0-3) mg/dl COVID-19 Eval Order SARS-CoV-2 (PCR) (Negative) Administered Medications Discontinued Medications Olanzapine (Olanzapine 5 Mg Tablet) 5 mg PO ONCE ONE Stop: 07/04/20 20:07 Last Admin: 07/04/20 20:31 Dose: 5 mg Documented by: [id number] Olanzapine (Olanzapine 5 Mg Tablet) 5 mg PO ONCE ONE Stop: 07/04/20 22:27 Last Admin: 07/04/20 22:50 Dose: 5 mg Documented by: [id number] Discharge Plan Visit Data Chief Complaint: Mental Health Evaluation Stated Complaint: [facility] ED Provider: Bryan Ferreira Discharge Problem: Psychosis Forms Stand Alone Forms: [facility], Suicide Prevention Resources Prescriptions Prescriptions: No Action gabapentin 300 mg capsule 300 mg PO TID RF: 0 multivitamin Tablet 1 tab PO DAILY RF: 0 ginkgo biloba [Ginkoba] 40 mg Tablet 40 mg PO DAILY RF: 0 cholecalciferol (vitamin D3) [Vitamin D3] 25 mcg (1,000 unit) Tablet,Chewable 1,000 mcg PO DAILY RF: 0 vitamin [id number] acid 1-0.8 mg Tablet 1 tab PO DAILY RF: 0 Discharge Problem: Psychosis Qualifiers: Psychosis type: unspecified psychosis type Qualified Code(s): F29 - Unspecified psychosis not due to a substance or known physiological condition
[2020-07-04 17:09] LABS: Basophils # (auto) 0.01 K/uL (0-0.2); Basophils % (auto) 0.1 %; Eosinophils # (auto) 0.06 K/uL (0-0.5); Eosinophils % (auto) 0.6 %; Hematocrit (blood only) 42.9 % (37-47); Hemoglobin 14.8 g/dL (12.0-16.0); Immature Granulocytes # (auto) 0.03 K/uL (0.00-0.02); Immature Granulocytes % (auto) 0.3 %; Lymphocytes # (auto) 3.63 K/uL (1.2-3.4); Lymphocytes % (auto) 36.1 %; Mean Corpuscular Hemoglobin 29.9 pg (25-34); Mean Corpuscular Hgb Conc 34.5 g/dL (32-36); Mean Corpuscular Volume 86.7 fL (80-100); Mean Platelet Volume 10.2 fL (7.4-10.4); Neutrophils # (auto) 5.72 K/uL (1.4-6.5); Neutrophils % (auto) 56.9 %; Platelet Count 264 K/uL (130-400); RDW Coefficient of Variation 13.4 % (11.5-14.5); RDW Standard Deviation 42.2 fL (36.4-46.3); Red Blood Count 4.95 M/uL (4.2-5.4); White Blood Count 10.05 K/uL (4.8-10.8)
[2020-07-04 17:26] LABS: Alanine Aminotransferase 16 U/L (12-78); Albumin Level 4.8 gm/dl (3.4-5.0); Aspartate Aminotransferase 8 U/L (15-37); BUN Creatinine Ratio 14.6 (10-20); Blood Urea Nitrogen 12 mg/dl (7-18); Calcium 10.1 mg/dl (8.5-10.1); Carbon Dioxide 30 mmol/L (21-32); Chloride 101 mmol/L (98-107); Est GFR (African American) 111.3 ml/min; Glucose 88 mg/dl (70-99); Potassium 3.6 mmol/L (3.5-5.1); Sodium 137 mmol/L (136-145)
[2020-07-04 17:37] LABS: Albumin Globulin Ratio 1.1 (0.9-2); Alkaline Phosphatase 73 U/L (45-117); Bilirubin,Total 0.5 mg/dl (0.2-1); Globulin 4.5 gm/dl (2.5-4.0); Total Protein 9.3 gm/dl (6.4-8.2)
[2020-07-04 17:51] LABS: Pregnancy Test, Serum Negative (Negative)
[2020-07-04 17:55] LABS: Acetaminophen < 2 ug/ml (10-30)
[2020-07-04 17:56] LABS: Salicylate < 1.7 mg/dl (2.8-20)
[2020-07-04] MEDS ORDERED: OLANZapine 5 MG TABLET PO ONE ×2 (20:06→22:26)
[2020-07-04 20:24] LABS: Appearance Urine Clear (Clear); Bilirubin Urine Negative (Negative); Blood Urine Negative (Negative); Color Urine Yellow; Glucose Urine UA Negative (Negative); Ketones Urine Negative (Negative); Leukocyte Esterase Urine Negative (Negative); Nitrite Urine Negative (Negative); Protein Urine Negative (Negative); Specific Gravity Urine 1.008 (1.000-1.030); Urobilinogen Urine Negative (Negative); pH Urine 6.5 (4.5-7.5)
[2020-07-04 20:43] LABS: Amphetamines+Metham, Urine Neg (Neg); Barbiturates, Urine Neg (Neg); Benzodiazepine, Urine Neg (Neg); Cocaine, Urine Neg (Neg); MDMA (Ecstacy), Urine Neg (Neg); Methadone, Urine Neg (Neg); Opiate, Urine Neg (Neg); Phencyclidine, Urine Neg (Neg)
--- NOTE | 2020-07-05 01:10 | Emergency Department Note ---
ED Visit Note ED Physician Sign Out Note: 30 yr old female with history of psychiatric disease arrives for evaluation of acute psychosis. Evaluated and medically cleared by Dr Ferreira. 302 warrant already signed. She has received Zyprexa with improvement in psychosis. Bed search on hold until am. Around 7am awoke and significant agitation making loud statement and unable to redirect. Willing to take PO medications thus Ativan and Zyprexa ordered PO. Signed out to Dr Nava pending placement. Montez Velez MD : Psychosis Qualifiers: Psychosis type: unspecified psychosis type Qualified Code(s): F29 - Unspecified psychosis not due to a substance or known physiological condition
[2020-07-05] MEDS ORDERED: OLANZapine 5 MG TABLET PO STA ×2 (06:59→22:49)
[2020-07-05] MEDS ORDERED: LORazepam 1 MG TAB PO STA (07:03)
--- NOTE | 2020-07-05 13:15 | Emergency Department Note ---
ED Visit Note I received this patient in signout at the change of shift from Dr. Velez as the patient is on a 302 after acute psychosis. She has received p.o. Ativan and Zyprexa. A bed search is underway. Psychiatry has consulted on the patient. They have increased the patient's dose of Zyprexa and currently as the patient is unable to be placed in a mental health facility, due to her complications with Parkinson's disease but remains psychotic, patient remains in the emergency department on a 302 with psychiatric consultation. Case will be signed out to Dr. Haddad at the change of shift pending disposition. . : Psychosis Qualifiers: Psychosis type: unspecified psychosis type Qualified Code(s): F29 - Unspecified psychosis not due to a substance or known physiological condition
--- NOTE | 2020-07-05 15:04 | Communication Note ---
Date of Service: July 05, 2020 Patient seen in the emergency department. Initially, patient was quite clear on presentation with absence of any reported symptoms. She had denied any psychotic thinking and was able to hold a logical conversation with sheet writer. Shortly thereafter patient was re-interviewed during which time she showed psychotic behavior including tangential and non-linear thought process along with what appeared to be internal preoccupation. Patient was administered Zyprexa last night to good effect, as per report her behaviors last night were much more severe and indicative of psychosis. This case is complicated by several factors. -Patient does acknowledge a lack of any antipsychotic medications in her current regimen, despite previous psychotic episodes. -Patient is currently using marijuana. -Patient has history of early onset Parkinson's disease which is likely contributing to her current state. Recommendations: -Continue with Zyprexa 5mg BID -Continue with Ativan 2mg as needed q4hr for agitation Diagnosis: r/o Psychosis due to medical condition r/o substance induced psychosis
[2020-07-05] MEDS ORDERED: QUEtiapine FUMARATE 25 MG TABLET PO STA (23:30)
--- NOTE | 2020-07-05 23:43 | Emergency Department Note ---
ED Visit Note ED Physician Sign Out Note: 30 yr old female with history psychosis signed out to me by Dr Haddad pending placement. She has been in ED over last 2 days on 302 warrant for acute psychosis. Still requiring PRN Zyprexa over the last day. Known to me from last evening as well. Monitored overnight. Signed out to Dr Mcnair. Montez Velez MD : Psychosis Qualifiers: Psychosis type: unspecified psychosis type Qualified Code(s): F29 - Unspecified psychosis not due to a substance or known physiological condition
--- NOTE | 2020-07-05 23:45 | Emergency Department Note ---
ED Visit Note Patient signed out to me at change of shift from Dr. Nava. Please see her prior note for additional details. Patient was found to be psychotic, and is now 302. Patient was given Zyprexa and Ativan previously. Patient has been seen by psychiatry as she has been here for many hours in the bed search has not resulted in any placement opportunities. Patient calm and cooperative throughout my shift. Her evening dose of Zyprexa was ordered per psychiatry recommendations. Patient signed out to Dr. Velez at change of shift. . : Psychosis Qualifiers: Psychosis type: unspecified psychosis type Qualified Code(s): F29 - Unspecified psychosis not due to a substance or known physiological condition
--- NOTE | 2020-07-06 06:45 | Emergency Department Note ---
ED Visit Note 0643: sign out from Dr. Velez. 302 for psychosis. awaiting placement 1451: Patient still awaiting psych placement. Patient signed out to Dr. Nani oliveira. . : Psychosis Qualifiers: Psychosis type: unspecified psychosis type Qualified Code(s): F29 - Unspecified psychosis not due to a substance or known physiological condition
--- NOTE | 2020-07-06 14:52 | Emergency Department Note ---
ED Visit Note Received patient in signout. History and physical verified by me. Patient asked subsequently accepted to 3 S. She did require additional doses of Zyprexa as well as Ativan and Cogentin. . : Psychosis Qualifiers: Psychosis type: unspecified psychosis type Qualified Code(s): F29 - Unspecified psychosis not due to a substance or known physiological condition
[2020-07-06] MEDS ORDERED: OLANZapine 5 MG TABLET PO STA (15:36)
--- NOTE | 2020-07-06 16:09 | Communication Note ---
Date of Service: July 06, 2020 patient seen with [facility] psychiatrists Dr. Grijalva and Sophia for ongoing psychosis related to prior dx of bipolar do. hx of childhood onset Parkinsons with refractory symptoms. Has not received any prn medication today and was acutely restless and banging on the wall. As she has been in ED since 05/04, 303 hearing will need to be held on Thursday. Patient is pending acceptance to our unit when construction allows and patient is more appropriate for milieu. Patient ordered Zyprexa [address] Cortes now. The doctors completed 303 paperwork and staff to fax to [facility] so hearing can take place on 5 am. Liaison to reassess this evening. Patient could not even tolerate me pointing her in direction of bathroom and became loud and therefore due to this and overall disorganization cannot understand her rights.
[2020-07-06] MEDS ORDERED: LORazepam 1 MG TAB SL STA (17:30)
[2020-07-06] MEDS ORDERED: BENZTROPINE MESYLATE 1 MG TAB PO STA (17:30)
[2020-07-06] MEDS ORDERED: OLANZapine 10 MG TAB PO STA (22:56)
[2020-07-07] MEDS ORDERED: SODIUM CHLORIDE 0.65% NA SOLN 45 ML (OCEAN) PRN (00:04)
[2020-07-07] MEDS ORDERED: hydrOXYzine HCl 25 MG TAB PO PRN ×2 (00:04)
[2020-07-07] MEDS ORDERED: BISMUTH SUBSALICYLATE LIQD 236 ML PO PRN (00:04)
[2020-07-07] MEDS ORDERED: MAGNESIUM HYDROXIDE SUSP 30 ML UDC PO PRN (00:04)
[2020-07-07] MEDS ORDERED: ALUMINUM/MAGNESIUM SUSP 30 ML UDC PO PRN (00:04)
[2020-07-07] MEDS ORDERED: OLANZapine 5 MG TABLET PO PRN (00:05)
[2020-07-07 02:11] LABS: Marijuana Quant, GCMS Urine 224 ng/mL (<5)
[2020-07-07] MEDS ORDERED: OLANZapine 5 MG TABLET PO SCH (09:00)
[2020-07-07] MEDS ORDERED: BENZTROPINE MESYLATE 1 MG TAB PO PRN (10:41)
--- NOTE | 2020-07-07 11:04 | History & Physical ---
Date of Service July 07, 2020 Impression / Recommendations (1) Psychosis: Psychosis type: unspecified psychosis type Qualified Code(s): F29 - Unspecified psychosis not due to a substance or known physiological condition Present on Admission?: Yes (2) Parkinson disease: Inventory Assets Strengths: Patient is verbal, able to expess her needs Needs: therapy Risk Factors Assessment Male: No : No Do You Have Access To A Gun?: No Health Problems: Yes Mental Health Diagnoses: Yes Substance Use Disorders: No Protective Factors Assessment Stable Relationships: Yes Supportive Family: Yes Psychiatric History Identifying Data NICOLÁS VARELA is a 30-year-old F who currently lives with her partner Rajesh, has a history of BPAD , and was admitted on 07/06/20 20:49 on a 302 involuntary commitment for Psychiosis. Chief Complaint "[]". Past Psychiatric History Current Psychiatric Diagnosis: psychosis nos Do You Have Access To A Gun?: No Allergies Allergy/AdvReac Type Severity Reaction Status Date / Time pineapple Allergy Hives Verified 07/04/20 16:58 gluten AdvReac Nausea Verified 07/04/20 16:59 Home Medications Medication Instructions Recorded Confirmed Type gabapentin 300 mg PO TID 07/04/20 07/04/20 History Family History Family History of: Depression and Anxiety Family Mental Health History Comment: per records - siblings may have hx depression/anxiety Alcohol History Hx of Alcohol Use Over the Past 12 Months: No Smoking Use Have You Smoked or Used Tobacco Products in the Last 30 Days: No Smoking Status: Unknown if ever smoked Substance History Hx of Prescription Med Misuse Over the Past 12 Months: No Hx of Over the Counter Med Misuse Over the Past 12 Months: No Hx of Inhalent Misuse Over the Past 12 Months: No Hx of Organic Substance Use Over the Past 12 Months: Yes (medical marijuana- amt/freq unknown) Hx of Illegal Substances/Street Drug Use Over Past 12 Months: No Problems as a Result of Past Substance Use: None Identified Personal History Highest Grade Completed: High School Graduate Marital Status: Single Number Of Children: 0 Beliefs That Will Affect Care: None Patient History Medical History Parkinson disease Social History Smoking Status: Unknown if ever smoked Preferred Language: Gambian Communication Ability: Impaired Communication Ability Comment: impaired d/t psychosis. Will offer fluids/nutrition frequently. Php Consultant Required: No Beliefs That Will Affect Care: None marital status: Single Current Living Situation: Family Feels Safe at Home: Declines to Answer Assistive Devices: Walker Assistive Devices Comment: at times, uses walker at home Review of Systems Review of Systems: All systems reviewed & are unremarkable except as noted in HPI & below Physical Exam Psychiatric: Orientation: alert, oriented x 3, oriented to person, oriented to place and + guarded; + uncooperative Apperance: appropriately dressed Eye Contact: + fair eye contact Motor Behavior: + psychomotor agitation and + tremor; + unsteady gait or station and + abnormal motor movements Speech: + pressured speech and + loud speech Affect: + anxious affect, + labile affect, + irritable affect and + angry affect; no depressed affect, no blunted affect and + mood not congruent with affect Mood: + irritable mood and + angry mood Thought Process: + circumstantial thought process, + tangential thought process, + flight of ideas, + looseness of associations, + perseveration and + concrete thought process; + thought process not clear or coherent Thought Content: + delusions and + ideas of reference Suicidal Thoughts: denies suicidal thoughts and denies suicidal plan Homicidal Thoughts: denies homicidal thoughts and denies homicidal plan Hallucinations: no auditory hallucinations (Denies but appears to be responding to internal stimuli) Cognition: remote memory grossly intact; + recent memory not intact and + attention not intact Estimated Intelligence: consistent with education level Insight: + poor insight and + severely impaired insight Judgement: + poor judgement Vital Signs (Past 24 Hours): Last Vital Signs Temp 36.4 C L 07/07/20 06:00 Pulse 87 07/07/20 06:35 Resp 16 07/07/20 06:00 BP 120/81 07/07/20 06:35 Pulse Ox 98 07/07/20 00:16 Exam Statement: Reviewed Dr Ferreira H & P of 07/04/20 and I accept as adequate for the Inpatient [facility] exam Results & Data ([facility]) Laboratory Results Laboratory Results - last 24 hr 07/04/20 19:56 U Marijuana THC Carboxy 224 H Current Inpatient Medications Current Inpatient Medications: Current Inpatient Medications Acetaminophen (Acetaminophen 325 Mg Tab) 650 mg PO Q4H PRN PRN Reason: Headache or Minor Fever Stop: 08/06/20 00:03 Al Hydrox/Mg Hydrox/Simethicone (Aluminum/Magnesium Susp 30 Ml Udc) 30 ml PO Q4H PRN PRN Reason: GI Upset Stop: 08/06/20 00:03 Benztropine Mesylate (Benztropine Mesylate 1 Mg Tab) 1 mg PO Q6 PRN PRN Reason: Muscle Spasm Stop: 08/06/20 11:59 Bismuth Subsalicylate (Bismuth Subsalicylate Liqd 236 Ml) 15 ml PO PRN PRN PRN Reason: Loose Stool Stop: 08/06/20 00:03 Divalproex Sodium (Divalproex Delay Release 250 Mg Tabec) 250 mg PO TID CLEMENCIA Stop: 08/06/20 10:39 Hydroxyzine HCl (Hydroxyzine Hcl 25 Mg Tab) 50 mg PO HSZ PRN PRN Reason: Insomnia Stop: 08/06/20 00:03 Hydroxyzine HCl (Hydroxyzine Hcl 25 Mg Tab) 25 mg PO Q4H PRN PRN Reason: Anxiety Stop: 08/06/20 00:03 Lorazepam (Lorazepam 1 Mg Tab) 1 mg PO BID CLEMENCIA Stop: 08/06/20 10:44 Magnesium Hydroxide (Magnesium Hydroxide Susp 30 Ml Udc) 30 ml PO DAILY PRN PRN Reason: Constipation Stop: 08/06/20 00:03 Olanzapine (Olanzapine 5 Mg Tablet) 5 mg PO QAM CLEMENCIA Stop: 08/06/20 08:59 Last Admin: 07/07/20 06:51 Dose: 5 mg Documented by: Olanzapine (Olanzapine 10 Mg Tab) 10 mg PO HS CLEMENCIA Stop: 08/06/20 21:59 Olanzapine (Olanzapine 5 Mg Tablet) 5 mg PO Q6 PRN PRN Reason: psychosis Stop: 08/06/20 00:04 Last Admin: 07/07/20 09:09 Dose: 5 mg Documented by: Olanzapine (Olanzapine Zydis 5 Mg Orally Dis. Tab) 5 mg PO Q4 PRN PRN Reason: Agitation Stop: 08/06/20 10:35 Quetiapine Fumarate (Quetiapine Fumarate 200 Mg Tabcr) 200 mg PO HS CLEMENCIA Stop: 08/06/20 21:59 Sodium Chloride (Sodium Chloride 0.65% Na Soln 45 Ml ([place])) 1 - 2 sprays NA PRN PRN PRN Reason: Nasal Dryness/Congestion Stop: 08/06/20 00:03
[2020-07-07] MEDS: DIVALPROEX DELAY RELEASE 250 MG TABEC PO SCH ×3 (11:22→21:13)
[2020-07-07] MEDS: LORazepam 1 MG TAB PO SCH ×2 (11:23→21:13)
--- NOTE | 2020-07-07 13:37 | History & Physical ---
Date of Service July 07, 2020 Impression / Recommendations Impression This is a 29-year-old woman with a history of juvenile Parkinson's who is admitted on a 302 for psychotic behavior, Unable to care for self, and Agitation. Patient's partner Mr. Rajesh Ruff reports that this episode as improved from previous admission last year and may have been a result of his gradual titration down of her medications. Impression : psychosis unspecified Bipolar disorder by history (1) Parkinson disease: We will monitor. At this time not on any recommended medications by outpatient neurology. Refer to outpatient neurology on discharge. Present on Admission?: Yes (2) Psychosis: This patient was admitted to 3 [facility] inpatient mental health unit. She is placed on every 15 minute checks for behavioral precautions For her psychosis. She will participate in group recreational milieu therapy and will be offered additional in the individual and family sessions as appropriate. Patient Seroquel will be restarted. Patient's outpatient dose was 600 mg in divided doses will start at 200 mg q. at night. Will increase dose gradually. Patient was on Seroquel And Depakote prior to this admission. While olanzapine has been very helpful to decrease her agitation and was used on an emergency basis at this time will discontinue olanzapine given the history the patient was very stabilized on Seroquel. We will start lorazepam 1 mg twice daily to decrease agitation. Medication discussed with patient. Patient agreeing to take medications orally and able to understand the basic side effects. Psychosis type: unspecified psychosis type Qualified Code(s): F29 - Unspecified psychosis not due to a substance or known physiological condition Present on Admission?: Yes Inventory Assets Strengths: Patient is verbal, able to expess her needs Needs: therapy Risk Factors Assessment Male: No : No Do You Have Access To A Gun?: No Health Problems: Yes Mental Health Diagnoses: Yes Substance Use Disorders: No Family History of Suicide: No Previous Psychiatric Hospitalization: Yes Protective Factors Assessment Stable Relationships: Yes Supportive Family: Yes Psychiatric History Identifying Data SENG VARELA is a 30-year-old F who currently lives in with Her partner/boyfriend Rajesh and has a history of Bipolar disorder and psychosis unspecified, and was admitted on 07/06/20 20:49 on a 302 involuntary commitment for Psychotic behavior Chief Complaint "My feet are cold I do not know anything I do not know what I am doing here". History of Present Illness 29-year-old female admitted to psychiatry on 07/06/2020 Patient brought to ED on active mental health warrant issued by SELWYN Andreas juárez/Abeba. Petition was completed by Rajesh Ruff and reads: "Seng has juvenile Parkinson, and last year she had to go to the hospital over a month and it was diagnosed as an unknown psychotic disorder triggered possible by her Parkinson. She went int psychosis and was seeing things and talking to different people by herself and is losing her connection with reality and its getting worse by the day. I want to get her connected with care before she gets worse"Patient's past medical history is significant for juvenile Parkinson's patient apparently developed symptoms as a teenager and the diagnosis has been confirmed by BREANNE scan. She had failed multiple medications for Parkinson's in the past. Patient on this admission appeared very disorganized actively responding to internal stimuli talking to unseen others but denied hallucinations. Patient had significant agitation while in the ED. Hospital bed search was exhausted while in ED. When this provider initially examined patient in the ED she was disorganized yelling leave me alone my feet are cold actively responding to internal stimuli some relief from Zydis Zyprexa patient had received 2 doses in the ED. Patient has a 303 petition with a hearing on July 09, 2020. On admission to the behavioral health unit patient remains agitated disorganized and hyperverbal. Patient had no sleep last night did not sleep last night per nursing report. Discussion with patient's significant other Mr. Mena reports who reported the patient had done well on both Seroquel and Depakote in the past patient's partner admitted to working with patient to titrate her medications down due to excessive sedation partner admitted to nursing staff that he did not consult the patient's psychiatrist or her primary care physicians patient's patient's partner noted a significant decline in functioning once Seroquel had been lowered to 50 mg 3 times daily Past Psychiatric History Previous Psych History: .Previous psychiatric admissions noted with consultation at [facility]. Patient with a previous diagnosis of bipolar disorder. Patient with no previous history of suicide attempts. Current Psychiatric Diagnosis: psychosis Unspecified Previous Psych Admissions: 2019 Do You Have Access To A Gun?: No History of Previous Suicide Attempt: No Past Medication Trials: Past Head Trauma/Neuro History History of Concussion/Seizure: No Allergies Allergy/AdvReac Type Severity Reaction Status Date / Time pineapple Allergy Hives Verified 07/04/20 16:58 gluten AdvReac Nausea Verified 07/04/20 16:59 Home Medications Medication Instructions Recorded Confirmed Type gabapentin 300 mg PO TID 07/04/20 07/04/20 History Family History Family History of: Depression and Anxiety Family Mental Health History Comment: per records - siblings may have hx depres rosy/anxiety Alcohol History Hx of Alcohol Use Over the Past 12 Months: No Smoking Use Have You Smoked or Used Tobacco Products in the Last 30 Days: No Smoking Status: Unknown if ever smoked Substance History Hx of Prescription Med Misuse Over the Past 12 Months: No Hx of Over the Counter Med Misuse Over the Past 12 Months: No Hx of Inhalent Misuse Over the Past 12 Months: No Hx of Organic Substance Use Over the Past 12 Months: Yes (medical marijuana- amt/freq unknown) Hx of Illegal Substances/Street Drug Use Over Past 12 Months: No Problems as a Result of Past Substance Use: None Identified Personal History Living Arrangements: Home Born In: [place] Childhood: Parents live in [place] , parents split when she was young Highest Grade Completed: High School Graduate Marital Status: Living w/ Signif. Other Number Of Children: 0 Beliefs That Will Affect Care: None Current Legal Problems: No Hx Legal Problems: No Psychological Trauma History Comment: Childhood Trauma of parents splitting up when she was in middle school. Cat last year of a rare. Patient History Medical History Parkinson disease Social History Smoking Status: Unknown if ever smoked Preferred Language: Sami Communication Ability: Impaired Communication Ability Comment: impaired d/t psychosis. Will offer fluids/nutrition frequently. Urgent Care Technician Required: No Beliefs That Will Affect Care: None marital status: Single Current Living Situation: Family Feels Safe at Home: Declines to Answer Assistive Devices: Walker Assistive Devices Comment: at times, uses walker at home Review of Systems Review of Systems: All systems reviewed & are unremarkable except as noted in HPI & below significant moment difficulties from Juvenile Parkinson Physical Exam Mental Examination: Appearance: Well Groomed Psychiatric: Orientation: alert, oriented to person and oriented to place; + uncooperative Apperance: appropriately dressed Eye Contact: + fair eye contact Motor Behavior: + psychomotor agitation and + tremor; + unsteady gait or station Speech: + pressured speech and + loud speech Affect: + anxious affect, + irritable affect and + angry affect; + mood not congruent with affect Mood: + irritable mood and + angry mood Thought Process: + flight of ideas, + looseness of associations and + perseveration; + thought process not goal directed, + thought process not linear or logical and + thought process not clear or coherent Thought Content: + preoccupation, + obsessions, + paranoid and + delusions Suicidal Thoughts: denies suicidal thoughts and denies suicidal plan Homicidal Thoughts: denies homicidal thoughts and denies homicidal plan Hallucinations: + auditory hallucinations Actively responding to internal stimuli Cognition: remote memory grossly intact and language grossly intact; + recent memory not intact and + attention not intact Estimated Intelligence: consistent with education level Insight: + severely impaired insight Judgement: + severely impaired judgement Vital Signs (Past 24 Hours): Last Vital Signs Temp 36.4 C L 07/07/20 06:00 Pulse 87 07/07/20 06:35 Resp 16 07/07/20 06:00 BP 120/81 07/07/20 06:35 Pulse Ox 98 07/07/20 00:16 Physical Examination: Physical exam by on 07/04/2020 is adequate for the purposes of this exam. Results & Data ([facility]) Laboratory Results Laboratory Results - last 24 hr 07/04/20 19:56 U Marijuana THC Carboxy 224 H Current Inpatient Medications Current Inpatient Medications: Current Inpatient Medications Acetaminophen (Acetaminophen 325 Mg Tab) 650 mg PO Q4H PRN PRN Reason: Headache or Minor Fever Stop: 08/06/20 00:03 Al Hydrox/Mg Hydrox/Simethicone (Aluminum/Magnesium Susp 30 Ml Udc) 30 ml PO Q4H PRN PRN Reason: GI Upset Stop: 08/06/20 00:03 Benztropine Mesylate (Benztropine Mesylate 1 Mg Tab) 1 mg PO Q6 PRN PRN Reason: Muscle Spasm Stop: 08/06/20 11:59 Bismuth Subsalicylate (Bismuth Subsalicylate Liqd 236 Ml) 15 ml PO PRN PRN PRN Reason: Loose Stool Stop: 08/06/20 00:03 Divalproex Sodium (Divalproex Delay Release 250 Mg Tabec) 250 mg PO TID CLEMENCIA Stop: 08/06/20 10:39 Last Admin: 07/07/20 11:22 Dose: 250 mg Documented by: Hydroxyzine HCl (Hydroxyzine Hcl 25 Mg Tab) 50 mg PO HSZ PRN PRN Reason: Insomnia Stop: 08/06/20 00:03 Hydroxyzine HCl (Hydroxyzine Hcl 25 Mg Tab) 25 mg PO Q4H PRN PRN Reason: Anxiety Stop: 08/06/20 00:03 Lorazepam (Lorazepam 1 Mg Tab) 1 mg PO BID CLEMENCIA Stop: 08/06/20 10:44 Last Admin: 07/07/20 11:23 Dose: 1 mg Documented by: Magnesium Hydroxide (Magnesium Hydroxide Susp 30 Ml Udc) 30 ml PO DAILY PRN PRN Reason: Constipation Stop: 08/06/20 00:03 Olanzapine (Olanzapine 5 Mg Tablet) 5 mg PO Q6 PRN PRN Reason: psychosis Stop: 08/06/20 00:04 Last Admin: 07/07/20 09:09 Dose: 5 mg Documented by: Olanzapine (Olanzapine Zydis 5 Mg Orally Dis. Tab) 5 mg PO Q4 PRN PRN Reason: Agitation Stop: 08/06/20 10:35 Quetiapine Fumarate (Quetiapine Fumarate 200 Mg Tabcr) 200 mg PO HS [facility] Stop: 08/06/20 21:59 Sodium Chloride (Sodium Chloride 0.65% Na Soln 45 Ml ([place])) 1 - 2 sprays NA PRN PRN PRN Reason: Nasal Dryness/Congestion Stop: 08/06/20 00:03
[2020-07-07] MEDS: OLANZapine ZYDIS 5 MG ORALLY DIS. TAB PO PRN ×2 (15:41→20:02)
[2020-07-07] MEDS: QUEtiapine FUMARATE 200 MG TABCR PO SCH (21:13)
[2020-07-07] MEDS ORDERED: OLANZapine 10 MG TAB PO SCH (22:00)
[2020-07-08] MEDS: DIVALPROEX DELAY RELEASE 250 MG TABEC PO SCH ×2 (07:44→13:28)
[2020-07-08] MEDS: LORazepam 1 MG TAB PO SCH ×2 (07:44→21:34)
[2020-07-08] MEDS: OLANZapine ZYDIS 5 MG ORALLY DIS. TAB PO PRN ×4 (07:45→20:03)
[2020-07-08] MEDS ORDERED: hydrOXYzine HCl 25 MG TAB PO STA (19:19)
[2020-07-08] MEDS ORDERED: LORazepam 1 MG TAB PO STA (19:20)
--- NOTE | 2020-07-08 20:40 | Psychiatric Progress Note ---
Date of Service July 08, 2020 Impression / Recommendations (1) Parkinson disease: We will monitor. At this time not on any recommended medications by outpatient neurology. Refer to outpatient neurology on discharge. (2) Psychosis: - 07/08/20 - Patient continues to have difficulty. remains acutely psychotic , disorganized and not re- directable will increase Depakote to 1000mg daily 07/07/20 - This patient was admitted to [address] [place] [address] inpatient mental health unit. She is placed on every 15 minute checks for behavioral precautions For her psychosis. She will participate in group recreational milieu therapy and will be offered additional in the individual and family sessions as appropriate. Patient Seroquel will be restarted. Patient's outpatient dose was 600 mg in divided doses will start at 200 mg q. at night. Will increase dose gradually. Patient was on Seroquel And Depakote prior to this admission. While olanzapine has been very helpful to decrease her agitation and was used on an emergency basis at this time will discontinue olanzapine given the history the patient was very stabilized on Seroquel. We will start lorazepam 1 mg twice daily to decrease agitation. Medication discussed with patient. Patient agreeing to take medications orally and able to understand the basic side effects. Risk Factors Assessment Male: No : No Do You Have Access To A Gun?: No Health Problems: Yes Mental Health Diagnoses: Yes Substance Use Disorders: No Family History of Suicide: No Previous Psychiatric Hospitalization: Yes Protective Factors Assessment Stable Relationships: Yes Supportive Family: Yes Interval History Chief Complaint "Get away from me". Review of Systems Sleep Information Total Hours of Sleep: 5.5 Meal Information Percent Meal Consumed - Breakfast: 100 Percent Meal Consumed - Lunch: 100 Percent Meal Consumed - Dinner: 100 Subjective Subjective Patient was seen & assessed and interval progress reviewed with treatment team[nursing and social work Patient had episode yesterday where she did better and was able to take a shower however throughout today patient has been disorganized, intermittently yelling responding to internal stimuli difficult to redirect. She however is taking her medications orally. Physical Exam Psychiatric Orientation: alert, oriented to person and oriented to place; + uncooperative Apperance: appropriately dressed Eye Contact: + fair eye contact Motor Behavior: + psychomotor agitation and + tremor; + unsteady gait or station Speech: + pressured speech and + loud speech Affect: + anxious affect, + irritable affect and + angry affect; + mood not congruent with affect Mood: + irritable mood and + angry mood Thought Process: + flight of ideas, + looseness of associations and + perseveration; + thought process not goal directed, + thought process not linear or logical and + thought process not clear or coherent Thought Content: + preoccupation, + obsessions, + paranoid and + delusions Suicidal Thoughts: denies suicidal thoughts and denies suicidal plan Homicidal Thoughts: denies homicidal thoughts and denies homicidal plan Hallucinations: + auditory hallucinations Cognition: remote memory grossly intact and language grossly intact; + recent memory not intact and + attention not intact Estimated Intelligence: consistent with education level Insight: + severely impaired insight Judgement: + severely impaired judgement Vital Signs (Past 24 Hours) Last Vital Signs Temp 36.4 C L 07/07/20 06:00 Pulse 87 07/07/20 06:35 Resp 16 07/07/20 06:00 BP 120/81 07/07/20 06:35 Pulse Ox 98 07/07/20 00:16 Results & Data ([facility]) Current Inpatient Medications Current Inpatient Medications: Current Inpatient Medications Acetaminophen (Acetaminophen 325 Mg Tab) 650 mg PO Q4H PRN PRN Reason: Headache or Minor Fever Stop: 08/06/20 00:03 Al Hydrox/Mg Hydrox/Simethicone (Aluminum/Magnesium Susp 30 Ml Udc) 30 ml PO Q4H PRN PRN Reason: GI Upset Stop: 08/06/20 00:03 Benztropine Mesylate (Benztropine Mesylate 1 Mg Tab) 1 mg PO Q6 PRN PRN Reason: Muscle Spasm Stop: 08/06/20 11:59 Bismuth Subsalicylate (Bismuth Subsalicylate Liqd 236 Ml) 15 ml PO PRN PRN PRN Reason: Loose Stool Stop: 08/06/20 00:03 Divalproex Sodium (Divalproex Delay Release 250 Mg Tabec) 250 mg PO TID [place] Stop: 08/06/20 10:39 Last Admin: 07/08/20 13:28 Dose: 250 mg Documented by: Hydroxyzine HCl (Hydroxyzine Hcl 25 Mg Tab) 50 mg PO HSZ PRN PRN Reason: Insomnia Stop: 08/06/20 00:03 Hydroxyzine HCl (Hydroxyzine Hcl 25 Mg Tab) 25 mg PO Q4H PRN PRN Reason: Anxiety Stop: 08/06/20 00:03 Lorazepam (Lorazepam 1 Mg Tab) 1 mg PO BID [place] Stop: 08/06/20 10:44 Last Admin: 07/08/20 07:44 Dose: 1 mg Documented by: Magnesium Hydroxide (Magnesium Hydroxide Susp 30 Ml Udc) 30 ml PO DAILY PRN PRN Reason: Constipation Stop: 08/06/20 00:03 Olanzapine (Olanzapine Zydis 5 Mg Orally Dis. Tab) 5 mg PO Q4 PRN PRN Reason: Agitation Stop: 08/06/20 10:35 Last Admin: 07/08/20 20:03 Dose: 5 mg Documented by: Quetiapine Fumarate (Quetiapine Fumarate 200 Mg Tabcr) 200 mg PO HS [place] Stop: 08/06/20 21:59 Last Admin: 07/07/20 21:13 Dose: 200 mg Documented by: Sodium Chloride (Sodium Chloride 0.65% Na Soln 45 Ml ([place])) 1 - 2 sprays NA PRN PRN PRN Reason: Nasal Dryness/Congestion Stop: 08/06/20 00:03 Post Discharge Appointments Contact Information Discharge Discharge Address: [address] [place] [address] (1) Psychosis Psychosis type: unspecified psychosis type Qualified Code(s): F29 - Unspecified psychosis not due to a substance or known physiological condition
[2020-07-08] MEDS: QUEtiapine FUMARATE 200 MG TABCR PO SCH (21:35)
[2020-07-08] MEDS: DIVALPROEX DELAY RELEASE 500 MG TAB PO SCH (21:35)
[2020-07-09] MEDS: OLANZapine ZYDIS 5 MG ORALLY DIS. TAB PO PRN (06:18)
[2020-07-09] MEDS: DIVALPROEX DELAY RELEASE 500 MG TAB PO SCH ×2 (09:00→21:22)
[2020-07-09] MEDS: LORazepam 1 MG TAB PO SCH ×2 (09:00→21:21)
[2020-07-09] MEDS: QUEtiapine FUMARATE 100 MG TABLET PO SCH (11:47)
--- NOTE | 2020-07-09 18:46 | Psychiatric Progress Note ---
Date of Service July 09, 2020 Impression / Recommendations (1) Parkinson disease: We will monitor. At this time not on any recommended medications by outpatient neurology. Refer to outpatient neurology on discharge. (2) Psychosis: 07/09/20- remains actively psychotic seroquel increased 303 hearing held and retained - 07/08/20 - Patient continues to have difficulty. remains acutely psychotic , disorganized and not re- directable will increase Depakote to 1000mg daily 07/07/20 - This patient was admitted to [address] [place] [address] inpatient mental health unit. She is placed on every 15 minute checks for behavioral precautions For her psychosis . She will participate in group recreational milieu therapy and will be offered additional in the individual and family sessions as appropriate. Patient Seroquel will be restarted. Patient's outpatient dose was 600 mg in divided doses will start at 200 mg q. at night. Will increase dose gradually. Patient was on Seroquel And Depakote prior to this admission. While olanzapine has been very helpful to decrease her agitation and was used on an emergency basis at this time will discontinue olanzapine given the history the patient was very stabilized on Seroquel. We will start lorazepam 1 mg twice daily to decrease agitation. Medication discussed with patient. Patient agreeing to take medications orally and able to understand the basic side effects. Risk Factors Assessment Male: No : No Do You Have Access To A Gun?: No Health Problems: Yes Mental Health Diagnoses: Yes Substance Use Disorders: No Family History of Suicide: No Previous Psychiatric Hospitalization: Yes Protective Factors Assessment Stable Relationships: Yes Supportive Family: Yes Interval History Chief Complaint "Get the fuck k away from me" can you see these demons"]". Review of Systems Sleep Information Total Hours of Sleep: 5.5 Meal Information Percent Meal Consumed - Breakfast: 50 Percent Meal Consumed - Lunch: 100 Percent Meal Consumed - Dinner: 100 Subjective Subjective Patient was seen & assessed and interval progress reviewed with [treatment team] [nursing and social work] patient continues to remain agitated intermittent episodes and outbursts or throughout the day. Patient is clearly responding to unseen others. Patient had through 303 hearing and was retained. Patient continues to remain disorganized, easily agitated difficulty following redirection. Physical Exam Psychiatric Orientation: alert, oriented to person and oriented to place; + uncooperative Apperance: appropriately dressed Eye Contact: + fair eye contact Motor Behavior: + psychomotor agitation and + tremor; + unsteady gait or station Speech: + pressured speech and + loud speech Affect: + anxious affect, + irritable affect and + angry affect; + mood not congruent with affect Mood: + irritable mood and + angry mood Thought Process: + flight of ideas, + looseness of associations and + perseveration; + thought process not goal directed, + thought process not linear or logical and + thought process not clear or coherent Thought Content: + preoccupation, + obsessions, + paranoid and + delusions Suicidal Thoughts: denies suicidal thoughts and denies suicidal plan Homicidal Thoughts: denies homicidal thoughts and denies homicidal plan Hallucinations: + auditory hallucinations Cognition: remote memory grossly intact and language grossly intact; + recent memory not intact and + attention not intact Estimated Intelligence: consistent with education level Insight: + severely impaired insight Judgement: + severely impaired judgement Vital Signs (Past 24 Hours) Last Vital Signs Temp 36.4 C L 07/09/20 06:38 Pulse 83 07/09/20 06:39 Resp 16 07/09/20 06:38 BP 109/74 07/09/20 06:39 Pulse Ox 98 07/07/20 00:16 Results & Data ([facility]) Laboratory Results Laboratory Results - last 24 hr 07/04/20 19:56 U Marijuana THC Carboxy 224 H Drug Screen Comment SEE NOTE Current Inpatient Medications Current Inpatient Medications: Current Inpatient Medications Acetaminophen (Acetaminophen 325 Mg Tab) 650 mg PO Q4H PRN PRN Reason: Headache or Minor Fever Stop: 08/06/20 00:03 Al Hydrox/Mg Hydrox/Simethicone (Aluminum/Magnesium Susp 30 Ml Udc) 30 ml PO Q4H PRN PRN Reason: GI Upset Stop: 08/06/20 00:03 Benztropine Mesylate (Benztropine Mesylate 1 Mg Tab) 1 mg PO Q6 PRN PRN Reason: Muscle Spasm Stop: 08/06/20 11:59 Bismuth Subsalicylate (Bismuth Subsalicylate Liqd 236 Ml) 15 ml PO PRN PRN PRN Reason: Loose Stool Stop: 08/06/20 00:03 Divalproex Sodium (Divalproex Delay Release 500 Mg Tab) 500 mg PO BID [place] Stop: 08/07/20 20:59 Last Admin: 07/09/20 09:00 Dose: 500 mg Documented by: Hydroxyzine HCl (Hydroxyzine Hcl 25 Mg Tab) 50 mg PO HSZ PRN PRN Reason: Insomnia Stop: 08/06/20 00:03 Hydroxyzine HCl (Hydroxyzine Hcl 25 Mg Tab) 25 mg PO Q4H PRN PRN Reason: Anxiety Stop: 08/06/20 00:03 Lorazepam (Lorazepam 1 Mg Tab) 1 mg PO HS [place] Stop: 08/08/20 21:59 Magnesium Hydroxide (Magnesium Hydroxide Susp 30 Ml Udc) 30 ml PO DAILY PRN PRN Reason: Constipation Stop: 08/06/20 00:03 Olanzapine (Olanzapine Zydis 5 Mg Orally Dis. Tab) 5 mg PO Q4 PRN PRN Reason: Agitation Stop: 08/06/20 10:35 Last Admin: 07/09/20 06:18 Dose: 5 mg Documented by: Quetiapine Fumarate (Quetiapine Fumarate 200 Mg Tabcr) 200 mg PO HS [place] Stop: 08/06/20 21:59 Last Admin: 07/08/20 21:35 Dose: 200 mg Documented by: Quetiapine Fumarate (Quetiapine Fumarate 100 Mg Tablet) 100 mg PO QAM [place] Stop: 08/08/20 10:44 Last Admin: 07/09/20 11:47 Dose: 100 mg Documented by: Sodium Chloride (Sodium Chloride 0.65% Na Soln 45 Ml ([place])) 1 - 2 sprays NA PRN PRN PRN Reason: Nasal Dryness/Congestion Stop: 08/06/20 00:03 Post Discharge Appointments Contact Information Discharge Discharge Address: [address] [place] [id number] (1) Psychosis Psychosis type: unspecified psychosis type Qualified Code(s): F29 - Unspecified psychosis not due to a substance or known physiological condition
[2020-07-09] MEDS: QUEtiapine FUMARATE 200 MG TABCR PO SCH (21:22)
[2020-07-10] MEDS: OLANZapine ZYDIS 5 MG ORALLY DIS. TAB PO PRN ×2 (02:11→11:57)
[2020-07-10] MEDS: DIVALPROEX DELAY RELEASE 500 MG TAB PO SCH ×2 (07:22→21:05)
[2020-07-10] MEDS: QUEtiapine FUMARATE 100 MG TABLET PO SCH (07:22)
[2020-07-10 08:50] LABS: Glucose Fasting 77 mg/dl (70-99)
[2020-07-10 08:58] LABS: Chol HDL Ratio 2; Cholesterol 96 mg/dl (0-200); HDL Cholesterol 44 mg/dl; LDL Cholesterol Calculated 45 mg/dl; Triglycerides 36 mg/dl (0-150); VLDL Cholesterol 7 mg/dl
--- NOTE | 2020-07-10 19:25 | Psychiatric Progress Note ---
Date of Service July 10, 2020 Impression / Recommendations (1) Parkinson disease: We will monitor. At this time not on any recommended medications by outpatient neurology. Refer to outpatient neurology on discharge. (2) Psychosis: 07/10/2020 remains actively psychotic however able to join the milieu today for several meals. 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 07/09/20- remains actively psychotic seroquel increased 303 hearing held and retained - 07/08/20 - Patient continues to have difficulty. remains acutely psychotic , disorganized and not re- directable will increase Depakote to 1000mg daily 07/07/20 - This patient was admitted to [address] [place] [address] inpatient mental health unit. She is placed on every 15 minute checks for behavioral precautions For her psychosis. She will participate in group recreational milieu therapy and will be offered additional in the individual and family sessions as appropriate. Patient Seroquel will be restarted. Patient's outpatient dose was 600 mg in divided doses will start at 200 mg q. at night. Will increase dose gradually. Patient was on Seroquel And Depakote prior to this admission. While olanzapine has been very helpful to decrease her agitation and was used on an emergency basis at this time will discontinue olanzapine given the history the patient was very stabilized on Seroquel. We will start lorazepam 1 mg twice daily to decrease agitation. Medication discussed with patient. Patient agreeing to take medications orally and able to understand the basic side effects. Risk Factors Assessment Male: No : No Do You Have Access To A Gun?: No Health Problems: Yes Mental Health Diagnoses: Yes Substance Use Disorders: No Family History of Suicide: No Previous Psychiatric Hospitalization: Yes Protective Factors Assessment Stable Relationships: Yes Supportive Family: Yes Interval History Chief Complaint "[I think everybody here is a witch I see demons. I think you are witch.]". Review of Systems Sleep Information Total Hours of Sleep: 4.5 Meal Information Percent Meal Consumed - Breakfast: 100 Percent Meal Consumed - Lunch: 100 Percent Meal Consumed - Dinner: 100 Subjective Subjective Patient was seen & assessed and interval progress reviewed with treatment team nursing and social work. Patient continues to remain disorganized observed speaking to unseen others, however patient able to attend to group today and was able to eat her meals in the dining area with her peers. He denies suicidal thoughts or homicidal thoughts however patient remains clearly very psychotic responding to internal stimuli even though she denies hallucinations is seen talking to unseen others Physical Exam Psychiatric Orientation: alert, oriented to person and oriented to place; + uncooperative Apperance: appropriately dressed Eye Contact: + fair eye contact Motor Behavior: + psychomotor agitation and + tremor; + unsteady gait or station Speech: + pressured speech and + loud speech Affect: + anxious affect, + irritable affect and + angry affect; + mood not congruent with affect Mood: + irritable mood and + angry mood Thought Process: + flight of ideas, + looseness of associations and + perseveration; + thought process not goal directed, + thought process not linear or logical and + thought process not clear or coherent Thought Content: + preoccupation, + obsessions, + paranoid and + delusions Suicidal Thoughts: denies suicidal thoughts and denies suicidal plan Homicidal Thoughts: denies homicidal thoughts and denies homicidal plan Hallucinations: + auditory hallucinations Cognition: remote memory grossly intact and language grossly intact; + recent memory not intact and + attention not intact Estimated Intelligence: consistent with education level Insight: + severely impaired insight Judgement: + severely impaired judgement Vital Signs (Past 24 Hours) Last Vital Signs Temp 36.4 C L 07/10/20 06:40 Pulse 73 07/10/20 06:41 Resp 18 07/10/20 06:40 BP 104/69 07/10/20 06:41 Pulse Ox 98 07/07/20 00:16 Results & Data ([facility]) Laboratory Results Laboratory Results - last 24 hr 07/10/20 08:22 Fasting Glucose 77 Triglycerides 36 Cholesterol 96 LDL Cholesterol, Calc 45 VLDL Cholesterol, Calc 7 HDL Cholesterol 44 Cholesterol/HDL Ratio 2 Current Inpatient Medications Current Inpatient Medications: Current Inpatient Medications Acetaminophen (Acetaminophen 325 Mg Tab) 650 mg PO Q4H PRN PRN Reason: Headache or Minor Fever Stop: 08/06/20 00:03 Al Hydrox/Mg Hydrox/Simethicone (Aluminum/Magnesium Susp 30 Ml Udc) 30 ml PO Q4H PRN PRN Reason: GI Upset Stop: 08/06/20 00:03 Benztropine Mesylate (Benztropine Mesylate 1 Mg Tab) 1 mg PO Q6 PRN PRN Reason: Muscle Spasm Stop: 08/06/20 11:59 Bismuth Subsalicylate (Bismuth Subsalicylate Liqd 236 Ml) 15 ml PO PRN PRN PRN Reason: Loose Stool Stop: 08/06/20 00:03 Divalproex Sodium (Divalproex Delay Release 500 Mg Tab) 500 mg PO BID [place] Stop: 08/07/20 20:59 Last Admin: 07/10/20 07:22 Dose: 500 mg Documented by: Hydroxyzine HCl (Hydroxyzine Hcl 25 Mg Tab) 50 mg PO HSZ PRN PRN Reason: Insomnia Stop: 08/06/20 00:03 Hydroxyzine HCl (Hydroxyzine Hcl 25 Mg Tab) 25 mg PO Q4H PRN PRN Reason: Anxiety Stop: 08/06/20 00:03 Lorazepam (Lorazepam 1 Mg Tab) 1 mg PO HS CLE[place] Stop: 08/08/20 21:59 Last Admin: 07/09/20 21:21 Dose: 1 mg Documented by: Magnesium Hydroxide (Magnesium Hydroxide Susp 30 Ml Udc) 30 ml PO DAILY PRN PRN Reason: Constipation Stop: 08/06/20 00:03 Olanzapine (Olanzapine Zydis 5 Mg Orally Dis. Tab) 5 mg PO Q4 PRN PRN Reason: Agitation Stop: 08/06/20 10:35 Last Admin: 07/10/20 11:57 Dose: 5 mg Documented by: Quetiapine Fumarate (Quetiapine Fumarate 200 Mg Tabcr) 200 mg PO HS [place] Stop: 08/06/20 21:59 Last Admin: 07/09/20 21:22 Dose: 200 mg Documented by: Quetiapine Fumarate (Quetiapine Fumarate 100 Mg Tablet) 100 mg PO QAM [place] Stop: 08/08/20 10:44 Last Admin: 07/10/20 07:22 Dose: 100 mg Documented by: Sodium Chloride (Sodium Chloride 0.65% Na Soln 45 Ml ([place])) 1 - 2 sprays NA PRN PRN PRN Reason: Nasal Dryness/Congestion Stop: 08/06/20 00:03 Mental Health & Subst Abuse Tx Psychiatrist Name of Psychiatrist: Dr. Reginald Alcazar, [facility] Psychiatrist's Post Discharge Appointments Primary Care Physician Name Of Family Doctor: Ever Aguilar [facility] Neurologist Name of Neurologist: Eyad Chavez Dr. XuMei Cantu & will be Dr. Feliciano Contact Information Discharge Discharge Address: [address] [place] [address] (1) Psychosis Psychosis type: unspecified psychosis type Qualified Code(s): F29 - Unspecified psychosis not due to a substance or known physiological condition
[2020-07-10] MEDS: QUEtiapine FUMARATE 200 MG TABCR PO SCH (21:05)
[2020-07-10] MEDS: LORazepam 1 MG TAB PO SCH (21:07)
[2020-07-11] MEDS: DIVALPROEX DELAY RELEASE 500 MG TAB PO SCH ×2 (09:00→21:47)
[2020-07-11] MEDS: QUEtiapine FUMARATE 100 MG TABLET PO SCH (09:00)
--- NOTE | 2020-07-11 18:05 | Psychiatric Progress Note ---
Date of Service July 11, 2020 Impression / Recommendations (1) Parkinson disease: We will monitor. At this time not on any recommended medications by outpatient neurology. Refer to outpatient neurology on discharge. (2) Psychosis: 07/11/2020 patient remains psychotic however she is also able to attend groups today she remains disorganized tangential with ongoing response to internal stimuli however is more redirectable is able to hold one-on-one conversations. Patient is taking her medication. Will check Depakote level increase Seroquel to 400 mg daily with an increase in the 100 mg on her nighttime dose. No side effects from medications of. 07/10/2020 remains actively psychotic however able to join the milieu today for several meals. Able to have a meeting outside her room with web content writer patient however remains acutely psychotic and still at this time requiring inpatient admission. 07/09/20- remains actively psychotic seroquel increased 303 hearing held and retained - 07/08/20 - Patient continues to have difficulty. remains acutely psychotic , disorganized and not re- directable will increase Depakote to 1000mg daily 07/07/20 - This patient was admitted to [address] [place] [address] inpatient mental health unit. She is placed on every 15 minute checks for behavioral precautions For her psychosis. She will participate in group recreational milieu therapy and will be offered additional in the individual and family sessions as appropriate. Patient Seroquel will be restarted. Patient's outpatient dose was 600 mg in divided doses will start at 200 mg q. at night. Will increase dose gradually. Patient was on Seroquel And Depakote prior to this admission. While olanzapine has been very helpful to decrease her agitation and was used on an emergency basis at this time will discontinue olanzapine given the history the patient was very stabilized on Seroquel. We will start lorazepam 1 mg twice daily to decrease agitation. Medication discussed with patient. Patient agreeing to take medications orally and able to understand the basic side effects. Risk Factors Assessment Male: No : No Do You Have Access To A Gun?: No Health Problems: Yes Mental Health Diagnoses: Yes Substance Use Disorders: No Family History of Suicide: No Previous Psychiatric Hospitalization: Yes Protective Factors Assessment Stable Relationships: Yes Supportive Family: Yes Interval History Chief Complaint I think that which is all gone" Review of Systems Sleep Information Total Hours of Sleep: 6.5 Meal Information Percent Meal Consumed - Breakfast: 100 Percent Meal Consumed - Lunch: 100 Percent Meal Consumed - Dinner: 100 Subjective Subjective Patient was seen & assessed and interval progress reviewed with treatment team nursing and social work patient is more visible in the milieu today she is able to attend groups and participate more. She is taking her medication. She is listening to music in her own. There is evidence of decrease agitation. Patient while remaining disorganized and tangential with preoccupations and response to internal stimuli she is able to have conversations with individual staff members. She is more able to be redirected Physical Exam Psychiatric Orientation: alert, oriented to person, oriented to place and cooperative Apperance: appropriately dressed Eye Contact: + fair eye contact Motor Behavior: + tremor; + unsteady gait or station and no psychomotor agitation Speech: + loud speech; no pressured speech Affect: + anxious affect and + labile affect; no irritable affect, no angry affect and + mood not congruent with affect Mood: + anxious mood; no angry mood Thought Process: + tangential thought process, + flight of ideas, + looseness of associations and + perseveration; + thought process not goal directed, + thought process not linear or logical and + thought process not clear or coherent Thought Content: + preoccupation, + obsessions, + delusions and + ideas of reference; not paranoid Suicidal Thoughts: denies suicidal thoughts and denies suicidal plan Homicidal Thoughts: denies homicidal thoughts and denies homicidal plan Hallucinations: + auditory hallucinations Cognition: remote memory grossly intact and language grossly intact; + recent memory not intact and + attention not intact Estimated Intelligence: consistent with education level Insight: + severely impaired insight Judgement: + severely impaired judgement Vital Signs (Past 24 Hours) Last Vital Signs Temp 36.6 C 07/11/20 06:42 Pulse 83 07/11/20 06:42 Resp 16 07/11/20 06:42 BP 106/72 07/11/20 06:43 Pulse Ox 98 07/07/20 00:16 Results & Data ([facility]) Current Inpatient Medications Current Inpatient Medications: Current Inpatient Medications Acetaminophen (Acetaminophen 325 Mg Tab) 650 mg PO Q4H PRN PRN Reason: Headache or Minor Fever Stop: 08/06/20 00:03 Al Hydrox/Mg Hydrox/Simethicone (Aluminum/Magnesium Susp 30 Ml Udc) 30 ml PO Q4H PRN PRN Reason: GI Upset Stop: 08/06/20 00:03 Benztropine Mesylate (Benztropine Mesylate 1 Mg Tab) 1 mg PO Q6 PRN PRN Reason: Muscle Spasm Stop: 08/06/20 11:59 Bismuth Subsalicylate (Bismuth Subsalicylate Liqd 236 Ml) 15 ml PO PRN PRN PRN Reason: Loose Stool Stop: 08/06/20 00:03 Divalproex Sodium (Divalproex Delay Release 500 Mg Tab) 500 mg PO BID [facility] Stop: 08/07/20 20:59 Last Admin: 07/11/20 09:00 Dose: 500 mg Documented by: Hydroxyzine HCl (Hydroxyzine Hcl 25 Mg Tab) 50 mg PO HSZ PRN PRN Reason: Insomnia Stop: 08/06/20 00:03 Hydroxyzine HCl (Hydroxyzine Hcl 25 Mg Tab) 25 mg PO Q4H PRN PRN Reason: Anxiety Stop: 08/06/20 00:03 Lorazepam (Lorazepam 1 Mg Tab) 1 mg PO HS [facility] Stop: 08/08/20 21:59 Last Admin: 07/10/20 21:07 Dose: 1 mg Documented by: Magnesium Hydroxide (Magnesium Hydroxide Susp 30 Ml Udc) 30 ml PO DAILY PRN PRN Reason: Constipation Stop: 08/06/20 00:03 Olanzapine (Olanzapine Zydis 5 Mg Orally Dis. Tab) 5 mg PO Q4 PRN PRN Reason: Agitation Stop: 08/06/20 10:35 Last Admin: 07/10/20 11:57 Dose: 5 mg Documented by: Quetiapine Fumarate (Quetiapine Fumarate 200 Mg Tabcr) 200 mg PO HS [facility] Stop: 08/06/20 21:59 Last Admin: 07/10/20 21:05 Dose: 200 mg Documented by: Quetiapine Fumarate (Quetiapine Fumarate 100 Mg Tablet) 100 mg PO QAM [place] Stop: 08/08/20 10:44 Last Admin: 07/11/20 09:00 Dose: 100 mg Documented by: Sodium Chloride (Sodium Chloride 0.65% Na Soln 45 Ml ([place])) 1 - 2 sprays NA PRN PRN PRN Reason: Nasal Dryness/Congestion Stop: 08/06/20 00:03 Mental Health & Subst Abuse Tx Psychiatrist Name of Psychiatrist: Dr. Reginald Alcazar, [facility] Psychiatrist's Post Discharge Appointments Primary Care Physician Name Of Family Doctor: Ever Aguilar [facility] Neurologist Name of Neurologist: Eyad Chavez, Dr. Terrie Cantu & will be Dr. Feliciano Contact Information Discharge Discharge Address: [address] [place] [address] (1) Psychosis Psychosis type: unspecified psychosis type Qualified Code(s): F29 - Unspecified psychosis not due to a substance or known physiological condition
[2020-07-11] MEDS: LORazepam 1 MG TAB PO SCH (21:47)
[2020-07-12] MEDS: DIVALPROEX DELAY RELEASE 500 MG TAB PO SCH ×2 (09:55→21:24)
[2020-07-12] MEDS: QUEtiapine FUMARATE 100 MG TABLET PO SCH (09:56)
--- NOTE | 2020-07-12 15:11 | Psychiatric Progress Note ---
Date of Service July 12, 2020 Impression / Recommendations (1) Parkinson disease: We will monitor. At this time not on any recommended medications by outpatient neurology. Refer to outpatient neurology on discharge. (2) Psychosis: 07/12/20-ongoing psychosis but improved continues to refer to people as" energy sources" tolerated increased Seroquel. Elevated Depakote level noted however 117 patient may not be at full steady state we will repeat Depakote level on Thursday no evidence of Depakote toxicity will add ammonia level to monitor we will continue current dose for now 07/11/2020 patient remains psychotic however she is also able to attend groups today she remains disorganized tangential with ongoing response to internal stimuli however is more redirectable is able to hold one-on-one conversations. Patient is taking her medication. Will check Depakote level increase Seroquel to 400 mg daily with an increase in the 100 mg on her nighttime dose. No side effects from medications of. 07/10/2020 remains actively psychotic however able to join the milieu today for several meals. Able to have a meeting outside her room with story writer patient however remains acutely psychotic and still at this time requiring inpatient admission. 07/09/20- remains actively psychotic seroquel increased 303 hearing held and retained - 07/08/20 - Patient continues to have difficulty. remains acutely psychotic , disorganized and not re- directable will increase Depakote to 1000mg daily 07/07/20 - This patient was admitted to [facility] inpatient mental health unit. She is placed on every 15 minute checks for behavioral precautions For her psychosis. She will participate in group recreational milieu therapy and will be offered additional in the individual and family sessions as appropriate. Patient Seroquel will be restarted. Patient's outpatient dose was 600 mg in divided doses will start at 200 mg q. at night. Will increase dose gradually. Patient was on Seroquel And Depakote prior to this admission. While olanzapine has been very helpful to decrease her agitation and was used on an emergency basis at this time will discontinue olanzapine given the history the patient was very stabilized on Seroquel. We will start lorazepam 1 mg twice daily to decrease agitation. Medication discussed with patient. Patient agreeing to take medications orally and able to understand the basic side effects. Risk Factors Assessment Male: No : No Do You Have Access To A Gun?: No Health Problems: Yes Mental Health Diagnoses: Yes Substance Use Disorders: No Family History of Suicide: No Previous Psychiatric Hospitalization: Yes Protective Factors Assessment Stable Relationships: Yes Supportive Family: Yes Interval History Chief Complaint "I think I have always have energy in me, I think what I am learning to do is to transfer ". Review of Systems Sleep Information Total Hours of Sleep: 6.5 Meal Information Percent Meal Consumed - Breakfast: 100 Percent Meal Consumed - Lunch: 100 Percent Meal Consumed - Dinner: 100 Subjective Subjective Patient was seen & assessed and interval progress reviewed with treatment team nursing and social work. Patient able to be in group much more appropriate. Patient able to answer questions regarding sleep and food and hygiene remains disorganized and overfocused on which she is still reports occasionally having NAG. I have energy any me. Physical Exam Psychiatric Orientation: alert, oriented to person, oriented to place and cooperative Apperance: appropriately dressed Eye Contact: + fair eye contact Motor Behavior: + tremor; + unsteady gait or station and no psychomotor ag itation Speech: + loud speech; no pressured speech Affect: + anxious affect and + labile affect; no irritable affect, no angry affect and + mood not congruent with affect Mood: + anxious mood and + irritable mood; no angry mood Thought Process: + tangential thought process, + flight of ideas, + looseness of associations and + perseveration; + thought process not goal directed, + thought process not linear or logical and + thought process not clear or coherent Thought Content: + preoccupation, + obsessions, + delusions and + ideas of reference; not paranoid Suicidal Thoughts: denies suicidal thoughts and denies suicidal plan Homicidal Thoughts: denies homicidal thoughts and denies homicidal plan Hallucinations: + auditory hallucinations Cognition: remote memory grossly intact and language grossly intact; + recent memory not intact and + attention not intact Estimated Intelligence: consistent with education level Insight: + severely impaired insight Judgement: + severely impaired judgement Vital Signs (Past 24 Hours) Last Vital Signs Temp 36.4 C L 07/12/20 06:00 Pulse 94 H 07/12/20 06:52 Resp 16 07/12/20 06:00 BP 111/76 07/12/20 06:52 Pulse Ox 98 07/07/20 00:16 Results & Data ([facility]) Laboratory Results Laboratory Results - last 24 hr 07/12/20 07/12/20 07:57 08:00 Valproic Acid 117 H Free Valproic Acid Cancelled Total Valproic Acid Cancelled Current Inpatient Medications Current Inpatient Medications: Current Inpatient Medications Acetaminophen (Acetaminophen 325 Mg Tab) 650 mg PO Q4H PRN PRN Reason: Headache or Minor Fever Stop: 08/06/20 00:03 Al Hydrox/Mg Hydrox/Simethicone (Aluminum/Magnesium Susp 30 Ml Udc) 30 ml PO Q4H PRN PRN Reason: GI Upset Stop: 08/06/20 00:03 Benztropine Mesylate (Benztropine Mesylate 1 Mg Tab) 1 mg PO Q6 PRN PRN Reason: Muscle Spasm Stop: 08/06/20 11:59 Bismuth Subsalicylate (Bismuth Subsalicylate Liqd 236 Ml) 15 ml PO PRN PRN PRN Reason: Loose Stool Stop: 08/06/20 00:03 Divalproex Sodium (Divalproex Delay Release 500 Mg Tab) 500 mg PO BID [facility] Stop: 08/07/20 20:59 Last Admin: 07/12/20 09:55 Dose: 500 mg Documented by: Hydroxyzine HCl (Hydroxyzine Hcl 25 Mg Tab) 50 mg PO HSZ PRN PRN Reason: Insomnia Stop: 08/06/20 00:03 Hydroxyzine HCl (Hydroxyzine Hcl 25 Mg Tab) 25 mg PO Q4H PRN PRN Reason: Anxiety Stop: 08/06/20 00:03 Lorazepam (Lorazepam 0.5 Mg Tab) 0.5 mg PO [facility] Stop: 08/11/20 21:59 Magnesium Hydroxide (Magnesium Hydroxide Susp 30 Ml Udc) 30 ml PO DAILY PRN PRN Reason: Constipation Stop: 08/06/20 00:03 Olanzapine (Olanzapine Zydis 5 Mg Orally Dis. Tab) 5 mg PO Q4 PRN PRN Reason: Agitation Stop: 08/06/20 10:35 Last Admin: 07/10/20 11:57 Dose: 5 mg Documented by: Quetiapine Fumarate (Quetiapine Fumarate 100 Mg Tablet) [facility] [place] Stop: 08/08/20 10:44 Last Admin: 07/12/20 09:56 Dose: 100 mg Documented by: Quetiapine Fumarate (Quetiapine Fumarate 150 Mg Tabcr) 300 mg PO HS [facility] Stop: 08/10/20 21:59 Last Admin: 07/11/20 21:47 Dose: 300 mg Documented by: Sodium Chloride (Sodium Chloride 0.65% Na Soln 45 Ml ([place])) 1 - 2 sprays NA PRN PRN PRN Reason: Nasal Dryness/Congestion Stop: 08/06/20 00:03 Mental Health & Subst Abuse Tx Psychiatrist Name of Psychiatrist: Dr. Reginald Alcazar, [facility] Psychiatrist's Post Discharge Appointments Primary Care Physician Name Of Family Doctor: Ever Aguilra, [facility] Neurologist Name of Neurologist: [facility] Kathy, Dr. Terrie Cantu & will be Dr. Feliciano Contact Information Discharge Discharge Address: [address] [place] [id number] (1) Psychosis Psychosis type: unspecified psychosis type Qualified Code(s): F29 - Unspecified psychosis not due to a substance or known physiological condition
[2020-07-12] MEDS: LORazepam 0.5 MG TAB PO SCH (21:24)
[2020-07-13] MEDS: QUEtiapine FUMARATE 100 MG TABLET PO SCH ×2 (08:58→09:01)
[2020-07-13] MEDS: DIVALPROEX DELAY RELEASE 500 MG TAB PO SCH ×3 (08:58→20:39)
--- NOTE | 2020-07-13 16:18 | Psychiatric Progress Note ---
Date of Service July 13, 2020 Impression / Recommendations (1) Parkinson disease: We will monitor. At this time not on any recommended medications by outpatient neurology. Refer to outpatient neurology on discharge. (2) Psychosis: 07/13/2020-patient psychosis remains ongoing but she continues to make steady improvement. He is able to answer questions directly. Taking her medications without being persuaded. She is learning the indications for her medications. She is attending groups. And she is actively participating. However patient does continue to respond to internal stimuli. She still continues to describe herself as having internal energy" and reports being able to translate his energy to others. At this time patient is still requiring inpatient psychiatric services for her psychosis she requires this admission to stabilize her psychosis and to continue to titrate her medications. Will repeat elevated Depakote level on Thursday. She is tolerating her increase Seroquel will not increase today. 07/12/20-ongoing psychosis but improved continues to refer to people as" energy sources" tolerated increased Seroquel. Elevated Depakote level noted however 117 patient may not be at full steady state we will repeat Depakote level on Thursday no evidence of Depakote toxicity will add ammonia level to monitor we will continue current dose for now 07/11/2020 patient remains psychotic however she is also able to attend groups to day she remains disorganized tangential with ongoing response to internal stimuli however is more redirectable is able to hold one-on-one conversations. Patient is taking her medication. Will check Depakote level increase Seroquel to 400 mg daily with an increase in the 100 mg on her nighttime dose. No side effects from medications of. 07/10/2020 remains actively psychotic however able to join the milieu today for several meals. Able to have a meeting outside her room with sba underwriter patient however remains acutely psychotic and still at this time requiring inpatient admission. 07/09/20- remains actively psychotic seroquel increased 303 hearing held and retained - 07/08/20 - Patient continues to have difficulty. remains acutely psychotic , disorganized and not re- directable will increase Depakote to 1000mg daily 07/07/20 - This patient was admitted to [facility] inpatient mental health unit. She is placed on every 15 minute checks for behavioral precautions For her psychos is. She will participate in group recreational milieu therapy and will be offered additional in the individual and family sessions as appropriate. Patient Seroquel will be restarted. Patient's outpatient dose was 600 mg in divided doses will start at 200 mg q. at night. Will increase dose gradually. Patient was on Seroquel And Depakote prior to this admission. While olanzapine has been very helpful to decrease her agitation and was used on an emergency basis at this time will discontinue olanzapine given the history the patient was very stabilized on Seroquel. We will start lorazepam 1 mg twice daily to decrease agitation. Medication discussed with patient. Patient agreeing to take medications orally and able to understand the basic side effects. Risk Factors Assessment Male: No : No Do You Have Access To A Gun?: No Health Problems: Yes Mental Health Diagnoses: Yes Substance Use Disorders: No Family History of Suicide: No Previous Psychiatric Hospitalization: Yes Protective Factors Assessment Stable Relationships: Yes Supportive Family: Yes Interval History Chief Complaint "[I think I am doing well, I think I get hungry" I still have so much energy"". Review of Systems Sleep Information Total Hours of Sleep: 7 Meal Information Percent Meal Consumed - Breakfast: 100 Percent Meal Consumed - Lunch: 100 Percent Meal Consumed - Dinner: 100 Subjective Subjective Patient was seen & assessed and interval progress reviewed with treatment team , and patient social science analyst. Patient is more able to engage today in conversation. Patient is less disorganized able to answer questions directly. Patient denies any suicidal thoughts or homicidal thoughts. She continues however at intervals to talk to unseen others. Patient denies depression. She describes herself as having improved energy" I am just working on how to transfer my energy" patient seen very active in groups and does appear to go off on tangents patient is also tolerating her room change very well. Physical Exam Psychiatric Orientation: alert, oriented to person, oriented to place and cooperative Apperance: appropriately dressed Eye Contact: + fair eye contact Motor Behavior: + tremor; + unsteady gait or station and no psychomotor agitation Speech: + loud speech; no pressured speech Affect: + anxious affect and + labile affect; no irritable affect, no angry affect and + mood not congruent with affect Mood: + anxious mood and + irritable mood; no angry mood Thought Process: + tangential thought process, + flight of ideas, + looseness of associations and + perseveration; + thought process not goal directed, + thought process not linear or logical and + thought process not clear or coherent Thought Content: + preoccupation, + obsessions, + delusions and + ideas of reference; not paranoid Suicidal Thoughts: denies suicidal thoughts and denies suicidal plan Homicidal Thoughts: denies homicidal thoughts and denies homicidal plan Hallucinations: + auditory hallucinations Cognition: remote memory grossly intact and language grossly intact; + recent memory not intact and + attention not intact Estimated Intelligence: consistent with education level Insight: + fair insight; not severely impaired insight Judgement: + fair judgement; not severely impaired judgement Vital Signs (Past 24 Hours) Last Vital Signs Temp 36.5 C 07/13/20 06:00 Pulse 81 07/13/20 06:43 Resp 16 07/13/20 06:00 BP 100/69 07/13/20 06:43 Pulse Ox 98 07/07/20 00:16 Results & Data ([facility]) Current Inpatient Medications Current Inpatient Medications: Current Inpatient Medications Acetaminophen (Acetaminophen 325 Mg Tab) 650 mg PO Q4H PRN PRN Reason: Headache or Minor Fever Stop: 08/06/20 00:03 Al Hydrox/Mg Hydrox/Simethicone (Aluminum/Magnesium Susp 30 Ml Udc) 30 ml PO Q4H PRN PRN Reason: GI Upset Stop: 08/06/20 00:03 Benztropine Mesylate (Benztropine Mesylate 1 Mg Tab) 1 mg PO Q6 PRN PRN Reason: Muscle Spasm Stop: 08/06/20 11:59 Bismuth Subsalicylate (Bismuth Subsalicylate Liqd 236 Ml) 15 ml PO PRN PRN PRN Reason: Loose Stool Stop: 08/06/20 00:03 Divalproex Sodium (Divalproex Delay Release 500 Mg Tab) 500 mg PO BID [facility] Stop: 08/07/20 20:59 Last Admin: 07/13/20 08:58 Dose: 500 mg Documented by: Hydroxyzine HCl (Hydroxyzine Hcl 25 Mg Tab) 50 mg PO HSZ PRN PRN Reason: Insomnia Stop: 08/06/20 00:03 Hydroxyzine HCl (Hydroxyzine Hcl 25 Mg Tab) 25 mg PO Q4H PRN PRN Reason: Anxiety Stop: 08/06/20 00:03 Lorazepam (Lorazepam 0.5 Mg Tab) 0.5 mg PO HS [facility] Stop: 08/11/20 21:59 Last Admin: 07/12/20 21:24 Dose: 0.5 mg Documented by: Magnesium Hydroxide (Magnesium Hydroxide Susp 30 Ml Udc) 30 ml PO DAILY PRN PRN Reason: Constipation Stop: 08/06/20 00:03 Olanzapine (Olanzapine Zydis 5 Mg Orally Dis. Tab) 5 mg PO Q4 PRN PRN Reason: Agitation Stop: 08/06/20 10:35 Last Admin: 07/10/20 11:57 Dose: 5 mg Documented by: Quetiapine Fumarate (Quetiapine Fumarate 100 Mg Tablet) 100 mg PO QAM [facility] Stop: 08/08/20 10:44 Last Admin: 07/13/20 09:01 Dose: 100 mg Documented by: Quetiapine Fumarate (Quetiapine Fumarate 150 Mg Tabcr) 300 mg PO HS [facility] Stop: 08/10/20 21:59 Last Admin: 07/12/20 21:24 Dose: 300 mg Documented by: Sodium Chloride (Sodium Chloride 0.65% Na Soln 45 Ml ([place])) 1 - 2 sprays NA PRN PRN PRN Reason: Nasal Dryness/Congestion Stop: 08/06/20 00:03 Mental Health & Subst Abuse Tx Psychiatrist Name of Psychiatrist: Dr. Reginald Alcazar, [facility] Psychiatrist's Post Discharge Appointments Primary Care Physician Name Of Family Doctor: Ever Aguilar [facility] Neurologist Name of Neurologist: [facility] Kathy, Dr. Terrie Cantu & will be Dr. Feliciano Contact Information Discharge Discharge Address: [address] [place] [address] (1) Psychosis Psychosis type: unspecified psychosis type Qualified Code(s): F29 - Unspecified psychosis not due to a substance or known physiological condition
[2020-07-13] MEDS: ACETAMINOPHEN 325 MG TAB PO PRN (17:35)
[2020-07-13] MEDS: LORazepam 0.5 MG TAB PO SCH (20:42)
[2020-07-14] MEDS: DIVALPROEX DELAY RELEASE 500 MG TAB PO SCH ×2 (09:24→21:12)
[2020-07-14] MEDS: QUEtiapine FUMARATE 100 MG TABLET PO SCH (09:24)
--- NOTE | 2020-07-14 12:15 | Psychiatric Progress Note ---
Date of Service July 14, 2020 Impression / Recommendations Impression 30 yo female with juvenile onset parkinsons, medical MJ use, recurrent mood symptoms with psychosis, improving on Depakote and Seroquel. (1) Psychosis: 07/14/20--reviewed care of Dr Rivera Risks/benefits/alternatives re-reviewed re: her current medications. Discussions included but was not limited to risks of TD and need for metabolic monitoring as well as neural tube defects with Depakote should have unplanned . Although the patient does not want children, currently using coitus interruptus for control. Would be interested in getting Nexplanon implant again and agrees to use condoms until then. SW made aware to assist with aftercare planning. Continue current medications and treatment plan. Reviewed that would advise against THC containing MJ products, or from a harm reduction model looking for higher concentrations of CBD in the ratio. She is aware that this can could place at risk for recurrent psychosis. Reviewed that her psychosis is most consistent with bipolar I disorder given her presentation. 07/13/2020-patient psychosis remains ongoing but she continues to make steady improvement. He is able to answer questions directly. Taking her medications without being persuaded. She is learning the indications for her medications. She is attending groups. And she is actively participating. However patient does continue to respond to internal stimuli. She still continues to describe herself as having internal energy" and reports being able to translate his energy to others. At this time patient is still requiring inpatient psychiatric services for her psychosis she requires this admission to stabilize her psychosis and to continue to titrate her medications. Will repeat elevated Depakote level on Thursday. She is tolerating her increase Seroquel will not increase today. 07/12/20-ongoing psychosis but improved continues to refer to people as" energy sources" tolerated increased Seroquel. Elevated Depakote level noted however 117 patient may not be at full steady state we will repeat Depakote level on Thursday no evidence of Depakote toxicity will add ammonia level to monitor we will continue current dose for now 07/11/2020 patient remains psychotic however she is also able to attend groups today she remains disorganized tangential with ongoing response to internal stimuli however is more redirectable is able to hold one-on-one conversations. Patient is taking her medication. Will check Depakote level increase Seroquel to 400 mg daily with an increase in the 100 mg on her nighttime dose. No side effects from medications of. 07/10/2020 remains actively psychotic however able to join the milieu today for several meals. Able to have a meeting outside her room with scientific technical writer patient however remains acutely psychotic and still at this time requiring inpatient admission. 07/09/20- remains actively psychotic seroquel increased 303 hearing held and retained - 07/08/20 - Patient continues to have difficulty. remains acutely psychotic , disorganized and not re- directable will increase Depakote to 1000mg daily 07/07/20 - This patient was admitted to [address] [place] [address] inpatient mental health unit. She is placed on every 15 minute checks for behavioral precautions For her psychosis. She will participate in group recreational milieu therapy and will be offered additional in the individual and family sessions as appropriate. Patient Seroquel will be restarted. Patient's outpatient dose was 600 mg in divided doses will start at 200 mg q. at night. Will increase dose gradually. Patient was on Seroquel And Depakote prior to this admission. While olanzapine has been very helpful to decrease her agitation and was used on an emergency basis at this time will discontinue olanzapine given the history the patient was very stabilized on Seroquel. We will start lorazepam 1 mg twice daily to decrease agitation. Medication discussed with patient. Patient agreeing to take medications orally and able to understand the basic side effects. (2) Parkinson disease: Reviewed 07/14/20: We will monitor. At this time not on any recommended medications by outpatient neurology. Refer to outpatient neurology on discharge. States she would be willing to resume Neurontin pending deep brain stim. Risk Factors Assessment Male: No : No Do You Have Access To A Gun?: No Health Problems: Yes Mental Health Diagnoses: Yes Substance Use Disorders: No Family History of Suicide: No Previous Psychiatric Hospitalization: Yes Protective Factors Assessment Stable Relationships: Yes Supportive Family: Yes Interval History Chief Complaint "I think I'm closer to myself, trying to understand why this happens". Review of Systems Sleep Information Total Hours of Sleep: 7 Meal Information Percent Meal Consumed - Breakfast: 100 Percent Meal Consumed - Lunch: 100 Percent Meal Consumed - Dinner: 100 Subjective Subjective Patient was seen & assessed and interval progress reviewed with nursing and social work. Will having meeting with boyfriend today. Both are reportedly hesitant to accept a bipolar dx and ongoing treatment with mood stabilizer, reviewed that would continue with ongoing monitoring as outpatient for likely at least 2 years before tapering again if able as repeated episodes of psychosis are harmful and she does recognizes "my mood are all over the place, alot". Superficially much more organized/appropriate but will become more disorganized in extended conversation per staff. Staff were able to confirm her referral to [facility] for deep brain stim. for rx Parkinsons. Plans to resume medical MJ upon discharge. Advised against given psychotic symptoms (resolving). Physical Exam Psychiatric Orientation: alert Apperance: appropriately groomed Eye Contact: good eye contact Motor Behavior: no abnormal motor movements Speech: normal rate/rhythm/volume of speech Affect: euthymic affect mood is "better I guess" Thought Process: linear/logical thought process Thought Content: reality based without delusions Suicidal Thoughts: denies suicidal thoughts Homicidal Thoughts: denies homicidal thoughts Hallucinations: no auditory hallucinations and no visual hallucinations Cognition: attention grossly intact Estimated Intelligence: consistent with education level Insight: + limited insight Judgement: + limited judgement Vital Signs (Past 24 Hours) Last Vital Signs Temp 36.5 C 07/14/20 06:28 Pulse 74 07/14/20 06:29 Resp 16 07/14/20 06:28 BP 106/72 07/14/20 06:29 Pulse Ox 98 07/07/20 00:16 Results & Data ([facility]) Current Inpatient Medications Current Inpatient Medications: Current Inpatient Medications Acetaminophen (Acetaminophen 325 Mg Tab) 650 mg PO Q4H PRN PRN Reason: Headache or Minor Fever Stop: 08/06/20 00:03 Last Admin: 07/13/20 17:35 Dose: 650 mg Documented by: Al Hydrox/Mg Hydrox/Simethicone (Aluminum/Magnesium Susp 30 Ml Udc) 30 ml PO Q4H PRN PRN Reason: GI Upset Stop: 08/06/20 00:03 Benztropine Mesylate (Benztropine Mesylate 1 Mg Tab) 1 mg PO Q6 PRN PRN Reason: Muscle Spasm Stop: 08/06/20 11:59 Bismuth Subsalicylate (Bismuth Subsalicylate Liqd 236 Ml) 15 ml PO PRN PRN PRN Reason: Loose Stool Stop: 08/06/20 00:03 Divalproex Sodium (Divalproex Delay Release 500 Mg Tab) 500 mg PO BID CLEMENCIA Stop: 08/07/20 20:59 Last Admin: 07/14/20 09:24 Dose: 500 mg Documented by: Hydroxyzine HCl (Hydroxyzine Hcl 25 Mg Tab) 50 mg PO HSZ PRN PRN Reason: Insomnia Stop: 08/06/20 00:03 Hydroxyzine HCl (Hydroxyzine Hcl 25 Mg Tab) 25 mg PO Q4H PRN PRN Reason: Anxiety Stop: 08/06/20 00:03 Lorazepam (Lorazepam 0.5 Mg Tab) 0.5 mg PO HS CLEMENCIA Stop: 08/11/20 21:59 Last Admin: 07/13/20 20:42 Dose: 0.5 mg Documented by: Magnesium Hydroxide (Magnesium Hydroxide Susp 30 Ml Udc) 30 ml PO DAILY PRN PRN Reason: Constipation Stop: 08/06/20 00:03 Olanzapine (Olanzapine Zydis 5 Mg Orally Dis. Tab) 5 mg PO Q4 PRN PRN Reason: Agitation Stop: 08/06/20 10:35 Last Admin: 07/10/20 11:57 Dose: 5 mg Documented by: Quetiapine Fumarate (Quetiapine Fumarate 100 Mg Tablet) 100 mg PO QAM CLEMENCIA Stop: 08/08/20 10:44 Last Admin: 07/14/20 09:24 Dose: 100 mg Documented by: Quetiapine Fumarate (Quetiapine Fumarate 150 Mg Tabcr) 300 mg PO HS CLEMENCIA Stop: 08/10/20 21:59 Last Admin: 07/13/20 20:39 Dose: 300 mg Documented by: Sodium Chloride (Sodium Chloride 0.65% Na Soln 45 Ml ([place])) 1 - 2 sprays NA PRN PRN PRN Reason: Nasal Dryness/Congestion Stop: 08/06/20 00:03 Mental Health & Subst Abuse Tx Psychiatrist Name of Psychiatrist: Dr. Reginald Alcazar, [facility] Psychiatrist's Post Discharge Appointments Primary Care Physician Name Of Family Doctor: Ever Aguilar [facility] Neurologist Name of Neurologist: [facility] Kathy, Dr. Terrie Cantu & will be Dr. Feliciano Contact Information Discharge Discharge Address: [address] [place] [address] (1) Psychosis Psychosis type: unspecified psychosis type Qualified Code(s): F29 - Unspecified psychosis not due to a substance or known physiological condition
[2020-07-14] MEDS: LORazepam 0.5 MG TAB PO SCH (21:12)
[2020-07-14] MEDS: ACETAMINOPHEN 325 MG TAB PO PRN (21:13)
[2020-07-15] MEDS: QUEtiapine FUMARATE 100 MG TABLET PO SCH (08:48)
[2020-07-15] MEDS: DIVALPROEX DELAY RELEASE 500 MG TAB PO SCH ×2 (08:48→21:50)
--- NOTE | 2020-07-15 11:20 | Psychiatric Progress Note ---
Date of Service July 15, 2020 Impression / Recommendations Impression 30 yo female with juvenile onset parkinsons, medical MJ use, recurrent mood symptoms with psychosis, improving on Depakote and Seroquel. 07/13--improved insight into condition, psychosis resolving. (1) Psychosis: 07/15/20--continue current meds and treatment plan but d/c pm Ativan and MNPR. 07/14/20--reviewed care of Dr Ferro. Risks/benefits/alternatives re-reviewed re: her current medications. Discussions included but was not limited to risks of TD and need for metabolic monitoring as well as neural tube defects with Depakote should have unplanned . Although the patient does not want children, currently using coitus interruptus for control. Would be interested in getting Nexplanon implant again and agrees to use condoms until then. SW made aware to assist with aftercare planning. Continue current medications and treatment plan. Reviewed that would advise against THC containing MJ products, or from a harm reduction model looking for higher concentrations of CBD in the ratio. She is aware that this can could place at risk for recurrent psychosis. Reviewed that her psychosis is most consistent with bipolar I disorder given her presentation. 07/13/2020-patient psychosis remains ongoing but she continues to make steady improvement. He is able to answer questions directly. Taking her medications without being persuaded. She is learning the indications for her medications. She is attending groups. And she is actively participating. However patient does continue to respond to internal stimuli. She still continues to describe herself as having internal energy" and reports being able to translate his energy to others. At this time patient is still requiring inpatient psychiatric services for her psychosis she requires this admission to stabilize her psychosis and to continue to titrate her medications. Will repeat elevated Depakote level on Thursday. She is tolerating her increase Seroquel will not increase today. 07/12/20-ongoing psychosis but improved continues to refer to people as" energy sources" tolerated increased Seroquel. Elevated Depakote level noted however 117 patient may not be at full steady state we will repeat Depakote level on Thursday no evidence of Depakote toxicity will add ammonia level to monitor we will continue current dose for now 07/11/2020 patient remains psychotic however she is also able to attend groups today she remains disorganized tangential with ongoing response to internal stimuli however is more redirectable is able to hold one-on-one conversations. Patient is taking her medication. Will check Depakote level increase Seroquel to 400 mg daily with an increase in the 100 mg on her nighttime dose. No side effects from medications of. 07/10/2020 remains actively psychotic however able to join the milieu today for several meals. Able to have a meeting outside her room with feature writer patient however remains acutely psychotic and still at this time requiring inpatient admission. 07/09/20- remains actively psychotic seroquel increased 303 hearing held and retained - 07/08/20 - Patient continues to have difficulty. remains acutely psychotic , disorganized and not re- directable will increase Depakote to 1000mg daily 07/07/20 - This patient was admitted to [address] [place] [address] inpatient mental health unit. She is placed on every 15 minute checks for behavioral precautions For her psychosis. She will participate in group recreational milieu therapy and will be offered additional in the individual and family sessions as appropriate. Patient Seroquel will be restarted. Patient's outpatient dose was 600 mg in divided doses will start at 200 mg q. at night. Will increase dose gradually. Patient was on Seroquel And Depakote prior to this admission. While olanzapine has been very helpful to decrease her agitation and was used on an emergency basis at this time will discontinue olanzapine given the history the patient was very stabilized on Seroquel. We will start lorazepam 1 mg twice daily to decrease agitation. Medication discussed with patient. Patient agreeing to take medications orally and able to understand the basic side effects. (2) Parkinson disease: Reviewed 07/14/20: We will monitor. At this time not on any recommended medications by outpatient neurology. Refer to outpatient neurology on discharge. States she would be willing to resume Neurontin pending deep brain stim. Risk Factors Assessment Male: No : No Do You Have Access To A Gun?: No Health Problems: Yes Mental Health Diagnoses: Yes Substance Use Disorders: No Family History of Suicide: No Previous Psychiatric Hospitalization: Yes Protective Factors Assessment Stable Relationships: Yes Supportive Family: Yes Interval History Chief Complaint "I'm getting a bit bored here, I'm feeling better and agree to take medications outside of the hospital". Review of Systems Sleep Information Total Hours of Sleep: 7 Meal Information Percent Meal Consumed - Breakfast: 75 Percent Meal Consumed - Lunch: 100 Percent Meal Consumed - Dinner: 100 Subjective Subjective Patient was seen & assessed and interval progress reviewed with nursing and social work. good family meeting. both on board with control and med plan. Seems a bit tired this am but hasn't showered yet. appropriate in interactions with staff/peers. Less likely to get off topic in conversation. No psychomotor restlessness. Physical Exam Psychiatric Orientation: alert, oriented to person and cooperative Apperance: appropriately dressed and appropriately groomed Eye Contact: good eye contact Motor Behavior: no abnormal motor movements; no psychomotor agitation Speech: normal rate/rhythm/volume of speech Affect: euthymic affect Mood: no irritable mood Thought Process: linear/logical thought process Thought Content: reality based without delusions Suicidal Thoughts: denies suicidal thoughts and denies suicidal plan Homicidal Thoughts: denies homicidal thoughts and denies homicidal plan Hallucinations: no auditory hallucinations and no visual hallucinations Cognition: remote memory grossly intact, attention grossly intact and language grossly intact Estimated Intelligence: consistent with education level Insight: + fair insight Judgement: + fair judgement Vital Signs (Past 24 Hours) Last Vital Signs Temp 36.7 C 07/15/20 06:35 Pulse 66 07/15/20 06:35 Resp 16 07/15/20 06:35 BP 95/64 L 07/15/20 06:36 Pulse Ox 98 07/07/20 00:16 Results & Data ([facility]) Current Inpatient Medications Current Inpatient Medications: Current Inpatient Medications Acetaminophen (Acetaminophen 325 Mg Tab) 650 mg PO Q4H PRN PRN Reason: Headache or Minor Fever Stop: 08/06/20 00:03 Last Admin: 07/14/20 21:13 Dose: 650 mg Documented by: Al Hydrox/Mg Hydrox/Simethicone (Aluminum/Magnesium Susp 30 Ml Udc) 30 ml PO Q4H PRN PRN Reason: GI Upset Stop: 08/06/20 00:03 Benztropine Mesylate (Benztropine Mesylate 1 Mg Tab) 1 mg PO Q6 PRN PRN Reason: Muscle Spasm Stop: 08/06/20 11:59 Bismuth Subsalicylate (Bismuth Subsalicylate Liqd 236 Ml) 15 ml PO PRN PRN PRN Reason: Loose Stool Stop: 08/06/20 00:03 Divalproex Sodium (Divalproex Delay Release 500 Mg Tab) 500 mg PO BID CLEMENCIA Stop: 08/07/20 20:59 Last Admin: 07/15/20 08:48 Dose: 500 mg Documented by: Hydroxyzine HCl (Hydroxyzine Hcl 25 Mg Tab) 50 mg PO HSZ PRN PRN Reason: Insomnia Stop: 08/06/20 00:03 Hydroxyzine HCl (Hydroxyzine Hcl 25 Mg Tab) 25 mg PO Q4H PRN PRN Reason: Anxiety Stop: 08/06/20 00:03 Magnesium Hydroxide (Magnesium Hydroxide Susp 30 Ml Udc) 30 ml PO DAILY PRN PRN Reason: Constipation Stop: 08/06/20 00:03 Olanzapine (Olanzapine Zydis 5 Mg Orally Dis. Tab) 5 mg PO Q4 PRN PRN Reason: Agitation Stop: 08/06/20 10:35 Last Admin: 07/10/20 11:57 Dose: 5 mg Documented by: Quetiapine Fumarate (Quetiapine Fumarate 100 Mg Tablet) 100 mg PO QAM CLEMENCIA Stop: 08/08/20 10:44 Last Admin: 07/15/20 08:48 Dose: 100 mg Documented by: Quetiapine Fumarate (Quetiapine Fumarate 150 Mg Tabcr) 300 mg PO HS CLEMENCIA Stop: 08/10/20 21:59 Last Admin: 07/14/20 21:13 Dose: 300 mg Documented by: Sodium Chloride (Sodium Chloride 0.65% Na Soln 45 Ml ([place])) 1 - 2 sprays NA PRN PRN PRN Reason: Nasal Dryness/Congestion Stop: 08/06/20 00:03 Mental Health & Subst Abuse Tx Psychiatrist Name of Psychiatrist: Dr. Reginald Alcazar, [facility] Psychiatrist's Therapist [facility]ist[facility] Therapist's Post Discharge Appointments Primary Care Physician Name Of Family Doctor: Ever Aguilar [place] Neurologist [facility]ist[facility]Dr. Terrie Cantu[facility] Neurologist's Date of Appointment with Neurologist: 10/31/20 Time of Appointment with Neurologist: 9:05am Neurology Appointment Comment: Also 11/21/20 Contact Information Discharge Discharge Address: [address] [place] [address] (1) Psychosis Psychosis type: unspecified psychosis type Qualified Code(s): F29 - Unspecified psychosis not due to a substance or known physiological condition
--- NOTE | 2020-07-16 09:15 | Discharge Summary ---
Date of Service July 16, 2020 History of Present Illness see H&P. Physical Exam Mental Examination See admission H&P and DOD summary. Vital Signs (Past 24 Hours) Last Vital Signs Temp 36.7 C 07/16/20 06:36 Pulse 82 07/16/20 06:36 Resp 16 07/16/20 06:36 BP 117/78 07/16/20 06:36 Pulse Ox 98 07/07/20 00:16 Principal Diagnosis bipolar I disorder, most recent episode manic Psychiatric Data See daily stay summary. In short, safety was maintained and the patient was cooperative with care. Medication changes included loading with Depakote and retrial of Seroquel and they tolerated this well. A family session was held and safety plan was completed prior to discharge. Note that initial Depakote level was 117 without evidence of side effects. Repeat level on day of discharge was 110 (<125). There were extensive discussions around med consent and need for control given her Parkinson's dx and us of mood stabilizers. She was initially quite disorganized and manic on presentation had had returned to baseline consistently prior to discharge. Day of Discharge Assessment Today the patient voices readiness for discharge. They note improvement in mood and deny thoughts to harm self or others. Thoughts remain organized and they are improved from admission. There is no evidence of psychosis. They agree to take mediations as prescribed and keep follow-up appointments. They are stable for d ischarge to outpatient level of care. Transition of Care Transition Of Care Record: was reviewed with the patient Advance Directives Advance Directives Information Provided: Yes Advance Directives: No Mental Health Advance Directive: No Advance Directives on File: No Living Will: No Power of Health Policy Nurse: No Advance Directives Reason:: Declines as Mental Health Visit. Risk Factors Assessment Male: No : No Do You Have Access To A Gun?: No Health Problems: Yes Mental Health Diagnoses: Yes Substance Use Disorders: No Family History of Suicide: No Previous Psychiatric Hospitalization: Yes Protective Factors Assessment Stable Relationships: Yes Supportive Family: Yes Tobacco Cessation at Discharge Tobacco Cessation Medication Prescribed at Discharge: Not Applicable/Non-Smoker Total Time Total Time Spent: Greater Than 30 Minutes Total Time Includes: Examination of the patient, Discharge Planning and Medication Reconciliation Discharge Data Lab Results 07/04/20 07/04/20 07/04/20 16:47 16:47 16:55 WBC 10.05 RBC 4.95 Hgb 14.8 Hct 42.9 MCV 86.7 MCH 29.9 MCHC 34.5 RDW Std Deviation 42.2 RDW Coeff of Narda 13.4 Plt Count 264 MPV 10.2 Immature Gran % (Auto) 0.3 Neut % (Auto) 56.9 Lymph % (Auto) 36.1 [place] % (Auto) 6.0 Eos % (Auto) 0.6 Baso % (Auto) 0.1 Neut # (Auto) 5.72 Lymph # (Auto) 3.63 H [place] # (Auto) 0.60 H Eos # (Auto) 0.06 Baso # (Auto) 0.01 Immature Gran # (Auto) 0.03 H Sodium Potassium Chloride Carbon Dioxide Anion Gap BUN Creatinine Est Cr Clr Drug Dosing Est GFR ( Amer) Est GFR (Non-Af Amer) BUN/Creatinine Ratio Glucose Fasting Glucose Calcium Total Bilirubin AST ALT Alkaline Phosphatase Total Protein Albumin Globulin Albumin/Globulin Ratio Triglycerides Cholesterol LDL Cholesterol, Calc VLDL Cholesterol, Calc HDL Cholesterol Cholesterol/HDL Ratio TSH HCG, Qual Urine Color Urine Appearance Urine pH Ur Specific [place] Urine Protein Urine Glucose (UA) Urine Ketones Urine Blood Urine Nitrite Urine Bilirubin Urine Urobilinogen Ur Leukocyte Esterase Salicylates Urine Opiates Screen Ur Methadone, Qual Acetaminophen Urine Barbiturates Valproic Acid Free Valproic Acid Total Valproic Acid Ur Phencyclidine (PCP) U Amphetamin/Meth Scrn MDMA (Ecstasy) Screen U Benzodiazepines Scrn Ur Cocaine Metabolite U Marijuana (THC) Screen U Marijuana THC Carboxy Drug Screen Comment Ethyl Alcohol mg/dL COVID-19 Eval Order Covid19 at [facility] SARS-CoV-2 (PCR) NEGATIVE 07/04/20 07/04/20 07/04/20 16:55 16:55 16:55 WBC RBC Hgb Hct MCV MCH MCHC RDW Std Deviation RDW Coeff of Narda Plt Count MPV Immature Gran % (Auto) Neut % (Auto) Lymph % (Auto) [place] % (Auto) Eos % (Auto) Baso % (Auto) Neut # (Auto) Lymph # (Auto) [place] # (Auto) Eos # (Auto) Baso # (Auto) Immature Gran # (Auto) Sodium 137 Potassium 3.6 Chloride 101 Carbon Dioxide 30 Anion Gap 5.0 BUN 12 Creatinine 0.82 Est Cr Clr Drug Dosing Not Reportable Est GFR ( Amer) 111.3 Est GFR (Non-Af Amer) 96.0 BUN/Creatinine Ratio 14.6 Glucose 88 Fasting Glucose Calcium 10.1 Total Bilirubin 0.5 AST 8 L ALT 16 Alkaline Phosphatase 73 Total Protein 9.3 H Albumin 4.8 Globulin 4.5 H Albumin/Globulin Ratio 1.1 Triglycerides Cholesterol LDL Cholesterol, Calc VLDL Cholesterol, Calc HDL Cholesterol Cholesterol/HDL Ratio TSH 1.350 HCG, Qual Urine Color Urine Appearance Urine pH Ur Specific [place] Urine Protein Urine Glucose (UA) Urine Ketones Urine Blood Urine Nitrite Urine Bilirubin Urine Urobilinogen Ur Leukocyte Esterase Salicylates < 1.7 L Urine Opiates Screen Ur Methadone, Qual Acetaminophen < 2 L Urine Barbiturates Valproic Acid Free Valproic Acid Total Valproic Acid Ur Phencyclidine (PCP) U Amphetamin/Meth Scrn MDMA (Ecstasy) Screen U Benzodiazepines Scrn Ur Cocaine Metabolite U Marijuana (THC) Screen U Marijuana THC Carboxy Drug Screen Comment Ethyl Alcohol mg/dL < 3.0 COVID-19 Eval Order SARS-CoV-2 (PCR) 07/04/20 07/04/20 07/04/20 16:55 19:56 19:56 WBC RBC Hgb Hct MCV MCH MCHC RDW Std Deviation RDW Coeff of Narda Plt Count MPV Immature Gran % (Auto) Neut % (Auto) Lymph % (Auto) [place] % (Auto) Eos % (Auto) Baso % (Auto) Neut # (Auto) Lymph # (Auto) [place] # (Auto) Eos # (Auto) Baso # (Auto) Immature Gran # (Auto) Sodium Potassium Chloride Carbon Dioxide Anion Gap BUN Creatinine Est Cr Clr Drug Dosing Est GFR ( Amer) Est GFR (Non-Af Amer) BUN/Creatinine Ratio Glucose Fasting Glucose Calcium Total Bilirubin AST ALT Alkaline Phosphatase Total Protein Albumin Globulin Albumin/Globulin Ratio Triglycerides Cholesterol LDL Cholesterol, Calc VLDL Cholesterol, Calc HDL Cholesterol Cholesterol/HDL Ratio TSH HCG, Qual Negative Urine Color Yellow Urine Appearance Clear Urine pH 6.5 Ur Specific [place] 1.008 Urine Protein Negative Urine Glucose (UA) Negative Urine Ketones Negative Urine Blood Negative Urine Nitrite Negative Urine Bilirubin Negative Urine Urobilinogen Negative Ur Leukocyte Esterase Negative Salicylates Urine Opiates Screen Neg Ur Methadone, Qual Neg Acetaminophen Urine Barbiturates Neg Valproic Acid Free Valproic Acid Total Valproic Acid Ur Phencyclidine (PCP) Neg U Amphetamin/Meth Scrn Neg MDMA (Ecstasy) Screen Neg U Benzodiazepines Scrn Neg Ur Cocaine Metabolite Neg U Marijuana (THC) Screen Pos H U Marijuana THC Carboxy Drug Screen Comment Ethyl Alcohol mg/dL COVID-19 Eval Order SARS-CoV-2 (PCR) 07/04/20 07/10/20 07/12/20 19:56 08:22 07:57 WBC RBC Hgb Hct MCV MCH MCHC RDW Std Deviation RDW Coeff of Narda Plt Count MPV Immature Gran % (Auto) Neut % (Auto) Lymph % (Auto) [place] % (Auto) Eos % (Auto) Baso % (Auto) Neut # (Auto) Lymph # (Auto) [place] # (Auto) Eos # (Auto) Baso # (Auto) Immature Gran # (Auto) Sodium Potassium Chloride Carbon Dioxide Anion Gap BUN Creatinine Est Cr Clr Drug Dosing Est GFR ( Amer) Est GFR (Non-Af Amer) BUN/Creatinine Ratio Glucose Fasting Glucose 77 Calcium Total Bilirubin AST ALT Alkaline Phosphatase Total Protein Albumin Globulin Albumin/Globulin Ratio Triglycerides 36 Cholesterol 96 LDL Cholesterol, Calc 45 VLDL Cholesterol, Calc 7 HDL Cholesterol 44 Cholesterol/HDL Ratio 2 TSH HCG, Qual Urine Color Urine Appearance Urine pH Ur Specific [place] Urine Protein Urine Glucose (UA) Urine Ketones Urine Blood Urine Nitrite Urine Bilirubin Urine Urobilinogen Ur Leukocyte Esterase Salicylates Urine Opiates Screen Ur Methadone, Qual Acetaminophen Urine Barbiturates Valproic Acid Free Valproic Acid Cancelled Total Valproic Acid Cancelled Ur Phencyclidine (PCP) U Amphetamin/Meth Scrn MDMA (Ecstasy) Screen U Benzodiazepines Scrn Ur Cocaine Metabolite U Marijuana (THC) Screen U Marijuana THC Carboxy 224 H Drug Screen Comment SEE NOTE Ethyl Alcohol mg/dL COVID-19 Eval Order SARS-CoV-2 (PCR) 07/12/20 07/16/20 08:00 08:34 WBC RBC Hgb Hct MCV MCH MCHC RDW Std Deviation RDW Coeff of Narda Plt Count MPV Immature Gran % (Auto) Neut % (Auto) Lymph % (Auto) [place] % (Auto) Eos % (Auto) Baso % (Auto) Neut # (Auto) Lymph # (Auto) [place] # (Auto) Eos # (Auto) Baso # (Auto) Immature Gran # (Auto) Sodium Potassium Chloride Carbon Dioxide Anion Gap BUN Creatinine Est Cr Clr Drug Dosing Est GFR ( Amer) Est GFR (Non-Af Amer) BUN/Creatinine Ratio Glucose Fasting Glucose Calcium Total Bilirubin AST ALT Alkaline Phosphatase Total Protein Albumin Globulin Albumin/Globulin Ratio Triglycerides Cholesterol LDL Cholesterol, Calc VLDL Cholesterol, Calc HDL Cholesterol Cholesterol/HDL Ratio TSH HCG, Qual Urine Color Urine Appearance Urine pH Ur Specific [place] Urine Protein Urine Glucose (UA) Urine Ketones Urine Blood Urine Nitrite Urine Bilirubin Urine Urobilinogen Ur Leukocyte Esterase Salicylates Urine Opiates Screen Ur Methadone, Qual Acetaminophen Urine Barbiturates Valproic Acid 117 H 110 H Free Valproic Acid Total Valproic Acid Ur Phencyclidine (PCP) U Amphetamin/Meth Scrn MDMA (Ecstasy) Screen U Benzodiazepines Scrn Ur Cocaine Metabolite U Marijuana (THC) Screen U Marijuana THC Carboxy Drug Screen Comment Ethyl Alcohol mg/dL COVID-19 Eval Order SARS-CoV-2 (PCR) Hospital Course (1) Psychosis: 07/15/20--continue current meds and treatment plan but d/c pm Ativan and MNPR. 07/14/20--reviewed care of Dr Ferro. Risks/benefits/alternatives re-reviewed re: her current medications. Discussions included but was not limited to risks of TD and need for metabolic monitoring as well as neural tube defects with Depakote should have unplanned . Although the patient does not want children, currently using coitus interruptus for control. Would be interested in getting Nexplanon implant again and agrees to use condoms until then. SW made aware to assist with aftercare planning. Continue current medications and treatment plan. Reviewed that would advise against THC containing MJ products, or from a harm reduction model looking for higher concentrations of CBD in the ratio. She is aware that this can could place at risk for recurrent psychosis. Reviewed that her psychosis is most consistent with bipolar I disorder given her presentation. 07/13/2020-patient psychosis remains ongoing but she continues to make steady improvement. He is able to answer questions directly. Taking her medications without being persuaded. She is learning the indications for her medications. She is attending groups. And she is actively participating. However patient does continue to respond to internal stimuli. She still continues to describe herself as having internal energy" and reports being able to translate his energy to others. At this time patient is still requiring inpatient psychiatric services for her psychosis she requires this admission to stabilize her psychosis and to continue to titrate her medications. Will repeat elevated Depakote level on Thursday. She is tolerating her increase Seroquel will not increase today. 07/12/20-ongoing psychosis but improved continues to refer to people as" energy sources" tolerated increased Seroquel. Elevated Depakote level noted however 117 patient may not be at full steady state we will repeat Depakote level on Thursday no evidence of Depakote toxicity will add ammonia level to monitor we will continue current dose for now 07/11/2020 patient remains psychotic however she is also able to attend groups today she remains disorganized tangential with ongoing response to internal stimuli however is more redirectable is able to hold one-on-one conversations. Patient is taking her medication. Will check Depakote level increase Seroquel to 400 mg daily with an increase in the 100 mg on her nighttime dose. No side effects from medications of. 07/10/2020 remains actively psychotic however able to join the milieu today for several meals. 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 07/09/20- remains actively psychotic seroquel increased 303 hearing held and retained - 07/08/20 - Patient continues to have difficulty. remains acutely psychotic , disorganized and not re- directable will increase Depakote to 1000mg daily 07/07/20 - This patient was admitted to [address] [place] [address] inpatient mental health unit. She is placed on every 15 minute checks for behavioral precautions For her psychosis. She will participate in group recreational milieu therapy and will be offered additional in the individual and family sessions as appropriate. Patient Seroquel will be restarted. Patient's outpatient dose was 600 mg in divided doses will start at 200 mg q. at night. Will increase dose gradually. Patient was on Seroquel And Depakote prior to this admission. While olanzapine has been very helpful to decrease her agitation and was used on an emergency basis at this time will discontinue olanzapine given the history the patient was very stabilized on Seroquel. We will start lorazepam 1 mg twice daily to decrease agitation. Medication discussed with patient. Patient agreeing to take medications orally and able to understand the basic side effects. (2) Parkinson disease: Reviewed 07/14/20: We will monitor. At this time not on any recommended medications by outpatient neurology. Refer to outpatient neurology on dis charge. States she would be willing to resume Neurontin pending deep brain stim. Mental Health & Subst Abuse Tx Psychiatrist Name of Psychiatrist: Dr. Reginald Alcazar, [facility] Psychiatrist's Psychiatric Appointment Comment: left message to follow up Therapist Name of Therapist: [facility]ie Box Therapist's Therapy Appointment Comment: left message to follow up Post Discharge Appointments Primary Care Physician Name Of Family Doctor: Ever Aguilar [facility] Date of Appointment with PCP: 07/26/20 Time of Appointment with PCP: 11:05a.m Provider Appointment Comment: [facility] [address], [place] [address] Neurologist [facility] [place] (Dr. Terrie Cantu) Neurologist's Date of Appointment with Neurologist: 10/31/20 Time of Appointment with Neurologist: 9:05am Neurology Appointment Comment: Also 11/21/20 Specialist Name of Specialist: Vannesa Miller Phone Number for Specialist: [phone] Date of Appointment with Specialist: 12/21/20 Time of Appointment with Specialist: 7:45am arrive 8am appt. Specialty Appointment Comment: [address] [place] [address] Smoking Cessation Counseling Tobacco Cessation Medication Prescribed at Discharge: Not Applicable/Non-Smoker Contact Information Discharge Discharge Address: [address] [place] [id number] Discharge Plan Discharge Items Patient Disposition: Home - Self-Care Reason For Visit: PSYCHOSIS NOS Discharge Diagnosis: bipolar I disorder Activity: Resume your previous activity Activity Comment: watch heat sensitivity in the sauna Non-emergency contact: Primary Care Provider, Filter Press Tender Head, Neurologist, Psychiatrist and Therapist Call non-emergency contact if: you have any medication questions and your symptoms worsen Follow-up/Referrals: PCP,NO [Primary Care Provider] - Diet: Regular Addtl Attending Provider Instructions: SPECIAL CARE INSTRUCTIONS: 1. Follow through with your scheduled aftercare appointments. If unable to keep an appointment, please call to reschedule. 2. Take your medication only as prescribed. Medication should not be changed or stopped without the approval of your doctor. In the event of worsening symptoms or concerns about side effects, contact your doctor immediately. 3. Utilize new healthy coping skills, anger management skills, and stress management skills learned during your hospitalization. Journal feelings and process them with a support person. Identify stressors or situations that may result in relapse, deterioration or inappropriate behaviors and develop a plan to deal with those issues. 4. If your coping skills are ineffective and you are in crisis, contact your outpatient providers for direction. If unable to reach your providers, please call the [facility] CRISIS LINE AT , go to the [facility] walk-in center at [address], [address], [place], or go to the closest Emergency Room. 5. Avoid alcohol and un-prescribed drugs. 6. You have been provided with the Mental Health Advance Directives Pamphlet for your review. AFTERCARE APPOINTMENTS: * Please call your insurance company prior to your scheduled appointment to confirm your aftercare providers are covered. Take your insurance information to your appointments. WHO TO CALL AND WHEN: Medical Emergencies: For questions or emergencies related to your hospital stay, please contact the Inpatient Behavioral Health Unit at [phone]. A skiing teacher is on-call 15/09 for the Behavioral Health Unit for emergencies At any time you feel your situation is an emergency, you may also call 911 immediately. Pending Studies at Discharge: No Stand-Alone Forms: My [facility], Smoking Cessation Medications and DC Order Prescriptions: New divalproex 500 mg Tablet,Delayed Release (Dr/Ec) 500 mg PO BID 30 Days Qty: 60 RF: 0 quetiapine 100 mg Tablet 100 mg PO QAM 30 Days Qty: 30 RF: 0 quetiapine 300 mg tablet extended release 24 hr 300 mg PO HS 30 Days Qty: 30 RF: 0 Discontinued gabapentin 300 mg capsule 300 mg PO TID RF: 0 Discharge Orders: Discharge Order (Routine); Ordered 07/16/20 Ordered By: Margy Lugo Admission Data Admit Date/Time: 07/06/20 20:49 Attending Provider: Margy Lugo Admit Provider: Seema Crum Primary Care Provider: PCP,NO Other Providers: Seema Crum Other Interventions: Discharge Summary Assessment (RN) Last Done: 07/16/20 09:24 PSY Interdisciplinary Discharge Planning Last Done: 07/16/20 12:18 Coding Level of Care Code 71125 D/C day mgmt > 30 min Diagnoses Psychosis F29 Psychosis type: unspecified psychosis type Parkinson disease G20
[2020-07-16] MEDS: QUEtiapine FUMARATE 100 MG TABLET PO SCH (09:55)
[2020-07-16] MEDS: DIVALPROEX DELAY RELEASE 500 MG TAB PO SCH (09:55)
== END 2020-07-16 12:30 | disposition home or self-care (01) | DRG 885 ==
LOC: ED 16:28 → SUATTDRO 07-06 20:49 → 3S 07-06 20:49